=== PATIENT | female | born 2000 | race Caucasian/White ===

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

== ENCOUNTER → 2020-01-28 14:06 | Outpatient (CLI) | payer OTHER, MEDICAID, SELFPAY ==
[2020-01-30 08:24] LABS: Covid-19 Nasal PCR Sendout Lex POSITIVE
== END ==
PROVIDERS: PCP Family Medicine; Visit Provider Nurse Practitioner Family
DX: Z20.828 Contact with and (suspected) exposure to other viral communicable diseases (principal); U07.1 COVID-19
CPT/HCPCS: U0004

== ENCOUNTER 2020-03-06 13:40 | Emergency (ER) | payer OTHER, MEDICAID, SELFPAY ==
[2020-03-06 14:56] VITALS: BP 128/78; PULSE 77; RESP 16; TEMP 36.7; O2SAT 100; BMI 40.7
--- NOTE | 2020-03-06 15:01 | XR_ITS ---
PROCEDURE: XR ANKLE LT MIN 3V CLINICAL INDICATION: TURNED ANKLE Pain COMPARISON: CR XR FOOT LT MIN 3V from 03/06/2020 FINDINGS: No fracture or dislocation. No lytic or blastic change. There is normal mineralization. The joint spaces are well-preserved. No significant degenerative/arthritic changes. No erosive changes evident. Other findings:None. IMPRESSION: No acute findings. Dictated by: Rohit De Oliveira MD 03/06/2020 20:40 Rohit De Oliveira MD in [place] 03/06/2020 20:40
--- NOTE | 2020-03-06 15:01 | XR_ITS ---
PROCEDURE: XR FOOT LT MIN 3V CLINICAL INDICATION: TURNED ANKLE COMPARISON: No exams were available for comparison FINDINGS: No fracture or dislocation. No lytic or blastic change. There is normal mineralization. The joint spaces are well-preserved. No significant degenerative/arthritic changes. No erosive changes evident. Other findings:None. IMPRESSION: No acute findings. Dictated by: Rohit De Oliveira MD 03/06/2020 20:40 Rohit De Oliveira MD in [place] 03/06/2020 20:41
--- NOTE | 2020-03-06 15:19 | HMH.EDUTC ---
[facility] [place] Disposition Clinical Impression: Left ankle sprain Qualifiers: Encounter type: initial encounter Involved ligament of ankle: unspecified ligament Qualified Code(s): S93.402A - Sprain of unspecified ligament of left ankle, initial encounter Sprain of left foot Qualifiers: Encounter type: initial encounter Qualified Code(s): S93.602A - Unspecified sprain of left foot, initial encounter Disposition: Home, Self-Care Condition on Discharge: Good Instructions: Ankle Sprain, DI for Ankle Sprain, DI for Foot Sprain Additional Instructions: Rest the extremity, apply ice for 15 minutes as tolerated three or four times per day, Wear the karen wrap for compression, Elevate the extremity as tolerated while you are resting. Take ibuprofen for pain. I sent in a prescription to your pharmacy. Follow up with Dr. Parry. I put in a referral but you need to call his office and schedule an appointment. Follow up with your regular doctor. GO TO THE ER FOR ANY WORSENING SYMPTOMS Prescriptions: Ibuprofen [Ibuprofen 600mg Tablet] 600 mg PO Q6HP PRN #30 tab PRN Reason: Mild Pain Transmission Status: Received by [facility] #[id number] Referrals: Hai Dickey MD [Primary Care Provider] - Stewart Parry MD [Staff Physician] - Forms: Work/School Release Time of Disposition: 15:59 Medical Decision Making - Medical Records Medical records reviewed: No: I reviewed the patient's medical records. - Bong Inquiry Pt receiving controlled substance: No Vital Signs: 03/06/20 14:56 03/06/20 16:18 Temperature 98.1 F 98.1 F Temperature Source Oral Oral Pulse Rate 77 Pulse Rate [Radial] 77 Respiratory Rate 16 16 Blood Pressure 128/78 Blood Pressure [Right Arm] 128/78 Blood Pressure Mean [Right Arm] 94 Blood Pressure Source Automatic Cuff Blood Pressure Source [Right Arm] Automatic Cuff Blood Pressure Position Sitting Blood Pressure Position [Right Arm] Sitting 02 Sat by Pulse Oximetry 100 Oxygen Delivery Method Room Air Room Air - Radiology Data #1 Image(s): Ankle Image Reviewed: Yes I reviewed the patient's radiology image, Yes I have reviewed radiologist's interpretation Preliminary Findings: No Fracture Seen PROCEDURE: XR ANKLE LT MIN 3V CLINICAL INDICATION: TURNED ANKLE Pain COMPARISON: CR XR FOOT LT MIN 3V from 03/06/2020 FINDINGS: No fracture or dislocation. No lytic or blastic change. There is normal mineralization. The joint spaces are well-preserved. No significant degenerative/arthritic changes. No erosive changes evident. Other findings:None. IMPRESSION: No acute findings. Dictated by: Rohit De Oliveira MD 03/06/2020 20:40 Rohit De Oliveira MD in [place] 03/06/2020 20:40 #2 Image(s): Foot/Toes Image Reviewed: Yes I reviewed the patient's radiology image, Yes I have reviewed radiologist's interpretation Preliminary Findings: No Fracture Seen PROCEDURE: XR FOOT LT MIN 3V CLINICAL INDICATION: TURNED ANKLE COMPARISON: No exams were available for comparison FINDINGS: No fracture or dislocation. No lytic or blastic change. There is normal mineralization. The joint spaces are well-preserved. No significant degenerative/arthritic changes. No erosive changes evident. Other findings:None. IMPRESSION: No acute findings. Dictated by: Rohit De Oliveira MD 03/06/2020 20:40 Rohit De Oliveira MD in [place] 03/06/2020 20:41 [facility] [place] HPI - General Stated complaint: [id number] left foot pain,home accident Time Seen by Provider: 03/06/20 15:19 Mode of Arrival: Ambulatory Source of Information: Patient Limitations: No Limitations Description of Symptoms (Recalled from Triage Doc. by RN): LEFT FOOT PAIN. HEENT Symptoms (Recalled from RN notes): No Resp Symptoms (Recalled from RN notes): No Skin Symptoms (Recalled from RN notes): No MS Symptoms (Recalled from RN notes): Yes Functional Status (Recalled from RN notes): WNL - History of Present Illness Pro
[2020-03-06 16:18] VITALS: BP 128/78; PULSE 77; RESP 16; TEMP 36.7; O2SAT 100
== END 2020-03-06 16:19 | disposition home or self-care (01) ==
PROVIDERS: Emergency Provider Nurse Practitioner Family; PCP Family Medicine
DX: S93.402A Sprain of unspecified ligament of left ankle, initial encounter (principal); S93.602A Unspecified sprain of left foot, initial encounter; X50.1XXA Overexertion from prolonged static or awkward postures, initial encounter; Y92.019 Unspecified place in single-family (private) house as the place of occurrence of the external cause
CPT/HCPCS: 73610; 73630; 99201

== ENCOUNTER → 2021-01-01 11:54 | Outpatient (CLI) | payer OTHER, MEDICAID, SELFPAY ==
[2021-01-07 08:20] LABS: QuantiFERON-TB Gold Plus Negative (Negative)
== END ==
PROVIDERS: Visit Provider Family Medicine
DX: Z11.1 Encounter for screening for respiratory tuberculosis (principal)
CPT/HCPCS: 36415; 86480

== ENCOUNTER 2021-01-29 09:04 | Emergency (ER) | payer OTHER, SELFPAY ==
[2021-01-29 09:05] VITALS: BP 136/88; PULSE 90; RESP 20; TEMP 36.6; O2SAT 96; BMI 39.1
[2021-01-29 09:22] VITALS: BP 136/88; PULSE 90; RESP 20; TEMP 36.6; O2SAT 96
--- NOTE | 2021-01-29 09:25 | HMH.EDUTC ---
[facility] [place] Clinical Impression: Exposure to COVID-19 virus Disposition: Home, Self-Care Condition on Discharge: Good Instructions: DI for COVID-19 (Suspected or Confirmed ), Preventing the Spread of Coronavirus Discharge Instructions Additional Instructions: *Monitor Temp, Over the counter Motrin or Tylenol as directed/as needed Tylenol every 4 hours and Motrin every 6 hours (as long as your family doctor has told you that you can take it) for fever or pain. and straight to ER if unable to lower temp less than 101.0 after medication given Follow up IMMEDIATELY for new or worsening symptoms or no Noticeable improvement over the next 48-72 hours. 911 for difficulty breathing or swallowing You were tested for today for COVID19 your test result should be back in the next 24-48 hours, you may call to the [facility] to see if your test results are back in the next 48 hours [phone] [facility] hours are 9am-9pm You was given a handout with instructions for Self Quarantine and Self isolation for while you wait on test results and what to do if they are positive If you are positive the Health Dept will be contacting you also Make sure to take your Vitamins Vit. C Vit D and Zinc if you can take them Referrals: Hai Dickey MD [Primary Care Provider] - As needed Forms: Work/School Release Medical Decision Making - Bong Inquiry Pt receiving controlled substance: No Bong was queried for this patient: No Vital Signs: 01/29/21 09:05 01/29/21 09:22 Temperature 97.9 F 97.9 F Temperature Source Oral Pulse Rate 90 Pulse Rate [Right Brachial] 90 Respiratory Rate 20 20 Blood Pressure 136/88 Blood Pressure [Right Arm] 136/88 Blood Pressure Mean [Right Arm] 104 Blood Pressure Source [Right Arm] Automatic Cuff Blood Pressure Position [Right Arm] Sitting 02 Sat by Pulse Oximetry 96 Oxygen Delivery Method Room Air [facility] [place] HPI - General Stated complaint: covid test Time Seen by Provider: 01/29/21 09:25 Mode of Arrival: Ambulatory Source of Information: Patient Limitations: No Limitations Description of Symptoms (Recalled from Triage Doc. by RN): PATIENT C/O SINUS DRAINAGE, CONGESTION AND NAUSEA. SCHOOL IS REQUESTING COVID TEST HEENT Symptoms (Recalled from RN notes): Yes Resp Symptoms (Recalled from RN notes): No Skin Symptoms (Recalled from RN notes): No MS Symptoms (Recalled from RN notes): No Functional Status (Recalled from RN notes): WNL - History of Present Illness Provider Complaint: Patient states that she has been having stuffy and runny nose State that she was possibly around a COVID + patient during clinicals and they wanted her to get tested She states feels like allergies Denies any other symptoms - Related Data Home Medications Medication Instructions Recorded Confirmed duloxetine 60 mg capsule,delayed 60 mg PO DAILY 01/06/21 release Previous Rx's Medication Instructions Recorded norgestimate 0.25 mg-ethinyl 1 tab PO DAILY #28 tab 01/06/21 estradiol 35 mcg tablet Allergies Allergy/AdvReac Type Severity Reaction Status Date / Time No Known Allergies Allergy Verified 01/06/21 15:04 - Worker's Comp Is this a Worker's Comp case?: No [facility] History - Hepatitis A Screen Drug use history?: No High risk sexual behaviors?: No History of sexually transmitted infection?: No Currently employed?: No Childcare worker?: No Do you have indoor plumbing?: Yes Do you have electricity?: Yes Attestation statement:: This patient has been screened for Hepatitis A risk factors. 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
== END 2021-01-29 09:27 | disposition home or self-care (01) ==
PROVIDERS: Emergency Provider Nurse Practitioner; PCP Family Medicine
DX: Z20.822 Contact with and (suspected) exposure to COVID-19 (principal)
CPT/HCPCS: 99202; G0463; U0003

== ENCOUNTER 2021-03-31 11:05 | Emergency (ER) | payer OTHER, MEDICAID, SELFPAY ==
[2021-03-31 11:06] VITALS: BP 137/92; PULSE 92; RESP 18; TEMP 37.1; O2SAT 98; BMI 42.3
--- NOTE | 2021-03-31 12:43 | HMH.EDUTC ---
[facility] [place] Disposition Clinical Impression: Bronchitis Sinusitis Qualifiers: Sinusitis location: unspecified location Chronicity: unspecified Qualified Code(s): J32.9 - Chronic sinusitis, unspecified Disposition: Home, Self-Care Condition on Discharge: Good Instructions: Sinusitis, DI for Sinusitis, DI for Cough -- Adult Additional Instructions: *Monitor Temp, Over the counter Motrin or Tylenol as directed/as needed Tylenol every 4 hours and Motrin every 6 hours (as long as your family doctor has told you that you can take it) for fever or pain. and straight to ER if unable to lower temp less than 101.0 after medication given *Warm salt water gargles may help to soothe the throat *Throat Lozenges *Warm fluids like tea with honey may help to soothe the throat *Sleep elevated *Humidifier/Vaporizer *Flonase 2 sprays in each nostril daily but be aware that it may take 2-3 days before you notice improvement Follow up IMMEDIATELY for new or worsening symptoms or no Noticeable improvement over the next 48-72 hours. 911 for difficulty breathing or swallowing You were tested for today for COVID19 your test result should be back in the next 24-48 hours, you may check your results on the [facility] My Health Portal if you have trouble logging on you may call You was given a handout with instructions for Self Quarantine and Self isolation for while you wait on test results and what to do if they are positive If you are positive the Health Dept will be contacting you also Make sure to take your Vitamins Vit. C Vit D and Zinc if you can take them Prescriptions: methylPREDNISolone [Medrol 4mg tab] 4 mg PO DIRECTED #21 tab Transmission Status: Pending to [facility] # guaiFENesin [Mucinex 600mg tablet] 1 - 2 tab PO BID PRN #20 tab PRN Reason: Congestion Transmission Status: Pending to [facility] # Azithromycin [Z-Aj 250mg Tab] 250 mg PO DIRECTED #6 tab Transmission Status: Pending to [facility] # Referrals: Hai Dickey MD [Primary Care Provider] - As needed Time of Disposition: 13:38 Medical Decision Making - Bong Inquiry Pt receiving controlled substance: No Bong was queried for this patient: No Vital Signs: 03/31/21 11:06 Temperature 98.8 F Temperature Source Oral Pulse Rate [Left Radial] 92 H Respiratory Rate 18 Blood Pressure [Right Arm] 137/92 H Blood Pressure Mean [Right Arm] 107 Blood Pressure Source [Right Arm] Automatic Cuff Blood Pressure Position [Right Arm] Sitting 02 Sat by Pulse Oximetry 98 Oxygen Delivery Method Room Air - Lab Data Lab Results 03/31/21 12:46: [facility] Clinic Negative Orders (Tests/Meds): ORDERS Category Date Time Status Covid-19 Nasal PCR ([facility]) Routine Lab 03/31/21 12:10 Received [facility] [place] HPI - General Stated complaint: cough, soa, congestion Time Seen by Provider: 03/31/21 12:43 Mode of Arrival: Ambulatory Source of Information: Patient Description of Symptoms (Recalled from Triage Doc. by RN): coughing and soa since Tuesday HEENT Symptoms (Recalled from RN notes): No Resp Symptoms (Recalled from RN notes): Yes (cough, soa) Skin Symptoms (Recalled from RN notes): No MS Symptoms (Recalled from RN notes): No Functional Status (Recalled from RN notes): na - History of Present Illness Provider Complaint: Patient states that she has been having sinus congestion and pressure for about a week and feels like it is trying to move into her chest States that she isnt coughing anything up yet but feels like it is draining in the back of her throat and making her cough and at times feels SOA - Related Data Home Medications Medication Instructions Recorded Confirmed duloxetine 60 mg capsule,delayed 60 mg PO DAILY 01/06/21 release Previous Rx's Medication Instructions Recorded norgestimate 0.25 mg-ethinyl 1 tab PO DAILY #28 tab 01/06/21 estradiol 35 mcg tablet Azithromycin [Z-Aj 250mg Tab]
[2021-03-31 13:23] LABS: UTC Pregnancy Test, Urine Negative (Negative)
[2021-03-31 14:01] VITALS: BP 137/92; PULSE 92; RESP 18; TEMP 37.1; O2SAT 98
== END 2021-03-31 14:03 | disposition home or self-care (01) ==
PROVIDERS: Emergency Provider Nurse Practitioner; PCP Family Medicine
DX: J20.9 Acute bronchitis, unspecified (principal); J32.9 Chronic sinusitis, unspecified; Z20.822 Contact with and (suspected) exposure to COVID-19
CPT/HCPCS: 81025; 99203; C9803; G0463; U0003; U0005

== ENCOUNTER 2021-04-14 11:50 | Emergency (ER) | payer MEDICAID, SELFPAY ==
[2021-04-14 12:13] VITALS: BP 146/97; PULSE 87; RESP 19; TEMP 37; O2SAT 98; BMI 40.6
[2021-04-14 12:39] LABS: UTC Pregnancy Test, Urine Negative (Negative)
--- NOTE | 2021-04-14 12:44 | HMH.EDUTC ---
[facility] [place] Disposition Clinical Impression: Negative test Disposition: Home, Self-Care Condition on Discharge: Good Additional Instructions: Follow up with [facility] if you do not start your menstrual period Return if needed Straight to ER if any life threatening symptoms Follow up with your [facility] Doctor if needed Referrals: Hai Dickey MD [Primary Care Provider] - As needed Time of Disposition: 13:38 Medical Decision Making - Bong Inquiry Pt receiving controlled substance: No Bong was queried for this patient: No Vital Signs: 04/14/21 12:13 Temperature 98.6 F Temperature Source Oral Pulse Rate [Left] 87 Respiratory Rate 19 Blood Pressure [Right Arm] 146/97 H Blood Pressure Mean [Right Arm] 113 02 Sat by Pulse Oximetry 98 - Lab Data Lab Results 04/14/21 12:11: Tst Clinic Negative 04/14/21 12:35: Serum HCG, Qual Negative [facility] [place] HPI - General Stated complaint: test Time Seen by Provider: 04/14/21 12:44 Mode of Arrival: Ambulatory Source of Information: Patient Limitations: No Limitations Description of Symptoms (Recalled from Triage Doc. by RN): pt requests a serum test. HEENT Symptoms (Recalled from RN notes): No Resp Symptoms (Recalled from RN notes): No Skin Symptoms (Recalled from RN notes): No MS Symptoms (Recalled from RN notes): No Functional Status (Recalled from RN notes): wnl - History of Present Illness Provider Complaint: Patient states that she took a couple home tests and they had a faint line at home so she came in requesting serum test States that she is on birthcontrol and wanted to see what the blood test showed before making appointment with OBGYN - Related Data Home Medications Medication Instructions Recorded Confirmed duloxetine 60 mg capsule,delayed 60 mg PO DAILY 01/06/21 release Previous Rx's Medication Instructions Recorded norgestimate 0.25 mg-ethinyl 1 tab PO DAILY #28 tab 01/06/21 estradiol 35 mcg tablet Azithromycin [Z-Aj 250mg Tab] 250 mg PO DIRECTED #6 tab 03/31/21 guaiFENesin [Mucinex 600mg tablet] 1 - 2 tab PO BID PRN #20 tab 03/31/21 methylPREDNISolone [Medrol 4mg 4 mg PO DIRECTED #21 tab 03/31/21 tab] Allergies Allergy/AdvReac Type Severity Reaction Status Date / Time No Known Allergies Allergy Verified 01/06/21 15:04 - Worker's Comp Is this a Worker's Comp case?: No [facility] History - Hepatitis A Screen Drug use history?: No High risk sexual behaviors?: No History of sexually transmitted infection?: No Currently employed?: No Childcare worker?: No Do you have indoor plumbing?: Yes Do you have electricity?: Yes Attestation statement:: This patient has been screened for Hepatitis A risk factors. 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 [employer] history ROS Obtained: Yes All systems reviewed & no additional complaints, Yes Systems reviewed as appropriate & no additional complaints - Constitutional Constitutional: Reports system reviewed and no additional complaints, except as docu, Denies body ache, Denies chills, Denies fever(s) - ENT Ears, Nose, Mouth, and Throat: Reports system reviewed and no additional complaints, except as docu - Cardiovascular Cardiovascular: Reports system reviewed and no additional complaints, except as docu - Respiratory Respiratory: Reports system reviewed and no additional complaints, except as docu - Gastrointestinal Gastrointestingal: Reports: system reviewed and no additional complaints, except as docu - Genitourinary Female Genitourinary: Reports system reviewed and no addition
[2021-04-14 13:12] LABS: HCG Qualitative, Serum Negative (Negative)
[2021-04-14 13:52] VITALS: BP 146/97; PULSE 87; RESP 19; TEMP 37
== END 2021-04-14 13:54 | disposition home or self-care (01) ==
PROVIDERS: Emergency Provider Nurse Practitioner; PCP Family Medicine
DX: Z32.01 Encounter for pregnancy test, result positive (principal)
CPT/HCPCS: 81025; 84703; 99202; G0463

== ENCOUNTER 2021-08-05 22:15 | Emergency (ER) | payer OTHER, MEDICAID, SELFPAY ==
--- NOTE | 2021-08-05 22:15 | ECG_ITS ---
APPROVED REPORT Exam: Resting ECG HR:56 bpm ECG Measurements Heart Rate 56 AXES MI 168 P 55 QRSd 96 QRS 34 QT 389 T 45 QTc 381 Conclusion SINUS BRADYCARDIA BORDERLINE ECG UNCONFIRMED REPORT Electronically signed by : Fadi Lloyd MD 08/06/2021 17:28:03
[2021-08-05 22:17] VITALS: BP 123/68; PULSE 66; RESP 18; TEMP 36.8; O2SAT 100; BMI 37.1
--- NOTE | 2021-08-05 22:26 | XR_ITS ---
PROCEDURE INFORMATION: Exam: XR Chest Exam date and time: 08/05/2021 10:26 PM Age: 20 years old Clinical indication: Sternal or substernal pain; Patient HX: PT states midsternal chest pain that started around 2200 tonight. Patient also around 4 weeks TECHNIQUE: Imaging protocol: XR of the chest. Views: 2 views. COMPARISON: No relevant prior studies available. FINDINGS: Lungs: No acute airspace consolidation. No appreciable pulmonary edema. Pleural spaces: No pleural effusion. No pneumothorax. Heart/Mediastinum: Cardiomediastinal silouhette is within normal limits. Bones/joints: No acute osseous abnormality. Soft tissues: Unremarkable. IMPRESSION: No evidence of acute cardiopulmonary disease.
[2021-08-05 22:50] LABS: Basophils # 0.2 K/mm3 (0-0.2); Basophils % 2.3 % (0.1-2.0); Eosinophils # 0.1 K/mm3 (0.0-0.4); Eosinophils % 1.5 % (0.1-12.0); Hematocrit 39.4 % (37.0-47.0); Hemoglobin 13.5 g/dL (12.2-16.2); Lymphocytes # 3.5 K/mm3 (0.7-4.5); Lymphocytes % 37.1 % (10-50); Mean Corpuscular HGB Conc 34.2 g/dL (31.8-35.4); Mean Corpuscular Hemoglobin 30.8 pg (27.0-31.2); Mean Platelet Volume 8.3 fl (7.4-10.4); Monocytes # 0.5 K/mm3 (0.1-1.0); Monocytes % 5.8 % (1.7-9.3); Neutrophils % 53.4 % (37.0-80.0); Platelet Count 340 K/mm3 (142-424); Red Blood Count 4.38 M/mm3 (4.20-5.40); Red Cell Distribution Width 12.1 % (11.5-17.5); White Blood Count 9.4 K/mm3 (4.5-13.0)
[2021-08-05 22:55] LABS: Alanine Aminotransferase 25 U/L (12-78); Albumin Level 4.2 g/dl (3.5-5.0); Alkaline Phosphatase 48 U/L (38-126); Anion Gap 12.5 mEq/L (5-15); Aspartate Amino Transferase 26 U/L (14-36); Bilirubin,Direct 0.2 mg/dl (0.0-0.4); Bilirubin,Indirect 0.7 mg/dL (0.0-0.9); Bilirubin,Total 0.9 mg/dl (0.2-1.3); Bilirubin,Unconjugated 0.7 mg/dL (0.0-1.1); Blood Urea Nitrogen 10 mg/dl (7-17); Calcium 8.7 mg/dl (8.4-10.2); Carbon Dioxide 24 mmol/L (22.0-30.0); Chloride 105 mmol/L (98-107); Creatinine Clearance Estimated 246 mL/min (50-200); Estimated Glomerular Filt Rate 127 ml/min (>60); GFR (African American) 154 ML/MIN (>60); Glucose 109 mg/dl (74-100); Lipase 125 U/L (23-300); Potassium 3.5 mmoL/L (3.5-5.1); Sodium 138 mmol/L (136-145); Total Protein,Serum 6.5 g/dl (6.3-8.2)
[2021-08-05 23:27] LABS: Troponin I < 0.01 ng/ml (0.00-0.034)
[2021-08-05 23:53] LABS: Erythrocyte Sedimentation Rate 15 mm/hr (0-20)
--- NOTE | 2021-08-06 00:04 | HMH.EDCP ---
ED Disposition Clinical Impression: Atypical chest pain Qualifiers: Weeks of gestation: less than 8 weeks Qualified Code(s): Z3A.01 - Less than 8 weeks gestation of Disposition: Home, Self-Care Condition on Discharge: Good Instructions: DI for Atypical Chest Pain Additional Instructions: call pcp and ob for follow up Referrals: Provider,Referral, [Primary Care Provider] - - Critical Care Critical Care Time: No Attestation: On 08/05/21, the high probability of a clinically significant, sudden or life threatening deterioration of the following system(s) required my full and direct attention, intervention and personal management. The time I documented below is in addition to time spent performing reported procedures but includes the following listed in this critical care notation. Medical Decision Making - Medical Records Medical records reviewed: Yes: I reviewed the patient's medical records. - Bong Inquiry Pt receiving controlled substance: No Vital Signs: 08/05/21 22:17 Temperature 98.2 F Temperature Source Oral Pulse Rate [Right Radial] 66 Respiratory Rate 18 Blood Pressure [Right Arm] 123/68 Blood Pressure Mean [Right Arm] 86 Blood Pressure Source [Right Arm] Automatic Cuff Blood Pressure Position [Right Arm] Sitting 02 Sat by Pulse Oximetry 100 Oxygen Delivery Method Room Air - Lab Data Lab results reviewed: Yes: I reviewed the patient's lab results. Lab Results 08/05/21 22:34: WBC 9.4, RBC 4.38, Hgb 13.5, Hct 39.4, MCV 90.0, MCH 30.8, MCHC 34.2, RDW 12.1, Plt Count 340, MPV 8.3, Neut % (Auto) 53.4, Lymph % (Auto) 37.1, Nolan % (Auto) 5.8, Eos % (Auto) 1.5, Baso % (Auto) 2.3 H, Neut # (Auto) 5.0, Lymph # (Auto) 3.5, Nolan # (Auto) 0.5, Eos # (Auto) 0.1, Baso # (Auto) 0.2, ESR 15 08/05/21 22:34: Sodium 138, Potassium 3.5, Chloride 105, Carbon Dioxide 24, Anion Gap 12.5, BUN 10, Creatinine 0.60, Estimated Creat Clear 246, Estimated GFR 127, Est GFR ( Amer) 154, Glucose 109 H, Calcium 8.7, Total Bilirubin 0.9, Direct Bilirubin 0.2, Conjugated Bilirubin 0.0, Indirect Bilirubin 0.7, Unconjugated Bilirubin 0.7, AST 26, ALT 25, Alkaline Phosphatase 48, Troponin I < 0.01, C-Reactive Protein 2.0, Total Protein 6.5, Albumin 4.2, Lipase 125 Result diagrams: 08/05/21 22:34 08/05/21 22:34 Orders (Tests/Meds): ED MEDICATIONS Generic Name Dose Route Start Last Admin Trade Name Freq PRN Reason Stop Dose Admin Sodium Chloride 1,000 mls @ 999 mls/hr 08/05/21 22:30 08/05/21 22:50 Sod Chlor 0.9% 1000ml Bag IV 08/05/21 23:30 999 mls/hr .Q1H1M GONZALEZ Administration Sodium Chloride 8 ml 08/05/21 22:41 Sodium Chloride 0.9% 10ml Vial IV 09/04/21 22:40 NEEDED PRN dilute pepcid Discontinued Medications Generic Name Dose Route Start Last Admin Trade Name Freq PRN Reason Stop Dose Admin Famotidine 20 mg 08/05/21 22:41 08/05/21 22:50 Famotidine 20mg/2ml Vial IV 08/05/21 22:42 20 mg ONCE ONE Administration Metoclopramide HCl 10 mg 08/05/21 22:41 08/05/21 22:50 Metoclopramide Hcl 10mg/2ml Vial IVP 08/05/21 22:42 10 mg ONCE ONE Administration ORDERS Category Date Time Status Troponin I Q3H Lab 08/06/21 01:30 Ordered Troponin I Q3H Lab 08/06/21 04:30 Ordered - Radiology Data #1 Image(s): Chest Image Reviewed: Yes I have reviewed radiologist's interpretation Preliminary Findings: Normal/NAD - ECG Data Tracing #1 Normal Sinus Rhythm: Yes Ischemic changes: non-specific ST-T wave changes Medical Decision Narrative: atypical chest pain with stable exam and labs Chest Pain HPI - General Chief Complaint: Chest Pain Stated Complaint: Chest Pain Time Seen by Provider: 08/05/21 23:00 Mode of Arrival: Ambulatory Source of Information: Patient, Spouse, Medical Record Limitations: No Limitations Description of Symptoms (Recalled from ER Triage Doc. by RN): Pt reports mid-sternal chest pain that
[2021-08-06 00:25] VITALS: BP 106/55; PULSE 71; RESP 16; TEMP 36.6; O2SAT 100
== END 2021-08-06 00:27 | disposition home or self-care (01) ==
PROVIDERS: Emergency Provider Emergency Medicine
DX: R07.89 Other chest pain (principal); R11.0 Nausea; Z3A.01 Less than 8 weeks gestation of pregnancy
CPT/HCPCS: 71046; 80048; 80076; 83690; 84484; 85025; 85651; 86140; 93005; 96365; 96375

== ENCOUNTER → 2021-08-31 16:15 | Outpatient (CLI) | payer OTHER, MEDICAID, SELFPAY ==
[2021-08-31 17:02] LABS: Basophils # 0.1 K/mm3 (0-0.2); Basophils % 1.2 % (0.1-2.0); Eosinophils % 0.4 % (0.1-12.0); Hematocrit 37.6 % (37.0-47.0); Hemoglobin 12.9 g/dL (12.2-16.2); Lymphocytes # 2.4 K/mm3 (0.7-4.5); Lymphocytes % 20.6 % (10-50); Mean Corpuscular HGB Conc 34.4 g/dL (31.8-35.4); Mean Corpuscular Hemoglobin 30.9 pg (27.0-31.2); Mean Corpuscular Volume 89.9 fl (81-99); Mean Platelet Volume 9.1 fl (7.4-10.4); Monocytes # 0.6 K/mm3 (0.1-1.0); Monocytes % 5.1 % (1.7-9.3); Neutrophils # 8.5 K/mm3 (1.8-7.8); Neutrophils % 72.8 % (37.0-80.0); Platelet Count 295 K/mm3 (142-424); Red Blood Count 4.18 M/mm3 (4.20-5.40); White Blood Count 11.6 K/mm3 (4.5-13.0)
[2021-08-31 18:32] LABS: Vitamin B12 354 pg/mL (239-931)
[2021-09-02 07:23] LABS: HIV Screen 4th Generation wRfx Non Reactive (Non Reactive)
[2021-09-02 08:38] LABS: HSV 1 IgG, Type Spec <0.91 index (0.00-0.90); HSV 2 IgG, Type Spec <0.91 index (0.00-0.90); Hepatitis B Surface Antigen Negative (Negative); Hepatitis C Antibody 0.2 s/co ratio (0.0-0.9)
[2021-09-02 12:12] LABS: Rapid Plasma Reagin Ab Titer Non Reactive (NonRea<1:1)
[2021-09-02 22:08] LABS: Neisseria gonorrhoeae, NAA Negative (Negative)
[2021-09-10 16:39] LABS: 1,25 Dihydroxy Vitamin D 59 pg/mL (.); 1,25-Dihydroxy, Vitamin D-2 <10 pg/mL (.); 1,25-Dihydroxy, Vitamin D-3 59 pg/mL (.)
== END ==
PROVIDERS: PCP Family Medicine; Visit Provider Nurse Practitioner Obstetrics & Gynecology
DX: Z34.90 Encounter for supervision of normal pregnancy, unspecified, unspecified trimester (principal); Z3A.01 Less than 8 weeks gestation of pregnancy; Z90.3 Acquired absence of stomach [part of]
CPT/HCPCS: 36415; 82607; 82652; 85025; 86592; 86695; 86703; 86762; 86790; 86850; 87340; 87380; 87491; 87591; G0432

== ENCOUNTER → 2021-09-09 12:55 | Outpatient (CLI) | payer OTHER, MEDICAID, SELFPAY ==
--- NOTE | 2021-09-09 12:55 | US_ITS ---
FINAL REPORT CLINICAL HISTORY: for dates FINDINGS: Sonographic images of the pelvis were obtained. A single, living intrauterine is noted. A yolk sac is present and measures 0.48 cm. [place] to rump length measures 2.3 cm which corresponds to 9 weeks 0 days gestation. Heartbeat is identified and measures 174 beats per minute. The right ovary is within normal limits. The left ovary is within normal limits. IMPRESSION: Single, living, intrauterine gestation with 9 weeks 0 days gestational age. Reviewed, Interpreted and Dictated by Franki Toure III, MD Transcribed by Cassie Vieira Authenticated by Franki Toure III, MD on 09/09/2021 04:54:22 PM [facility]
== END ==
PROVIDERS: PCP Family Medicine; Visit Provider Nurse Practitioner Obstetrics & Gynecology
DX: Z34.90 Encounter for supervision of normal pregnancy, unspecified, unspecified trimester (principal)
CPT/HCPCS: 76801

== ENCOUNTER → 2021-09-29 09:21 | Outpatient (CLI) | payer OTHER, MEDICAID, SELFPAY | PROVIDERS: Visit Provider Nurse Practitioner Obstetrics & Gynecology | DX: Z31.430 Encounter of female for testing for genetic disease carrier status for procreative management (principal); Z36.0 Encounter for antenatal screening for chromosomal anomalies; O28.3 Abnormal ultrasonic finding on antenatal screening of mother | CPT/HCPCS: 36415 ==

== ENCOUNTER → 2021-11-20 12:49 | Outpatient (CLI) | payer OTHER, MEDICAID, SELFPAY ==
--- NOTE | 2021-11-20 12:49 | US_ITS ---
FINAL REPORT CLINICAL HISTORY: 20 weeks gestation FINDINGS: There is a single live intrauterine gestation. Presentation is breech. The cervix is closed and measures 3.76 cm. Placenta is anterior, grade 1. movement is noted. Heart rate is measured at 139 beats per minute. Three-vessel cord with satisfactory umbilical cord insertion. Four-chamber heart is noted. brain and ventricles are unremarkable. Chest and diaphragm are unremarkable. ABDOMEN: Both kidneys are unremarkable. Stomach is unremarkable. SPINE: No anomalies identified. AMNIOTIC FLUID: Appropriate amount. MEASUREMENTS: ULTRASOUND AGE: 19 weeks 3 days. GESTATION AGE: 19 weeks 1 days. ESTIMATED WEIGHT: 294 g GROWTH PERCENTILE: 64% BPD: 4.4 cm corresponding with 19 weeks 3 days. OFD: 6 cm corresponding with 20 weeks 3 days. HC: 16.6 cm corresponding with 19 weeks 2 days. AC: 14.8 cm corresponding with 20 weeks 1 days. FL: 2.9 cm corresponding with 18 weeks 6 days. CEREBELLUM: 2 cm corresponding with 20 weeks 1 days. HUMERUS: 3.1 cm corresponding with 20 weeks 2 days. HC/AC: 1.12 CI: 74% FL/BPD: 65% FL/AC: 19% IMPRESSION: Single living IUP with an ultrasound age of 19 weeks 3 days. No gross anomalies noted. Reviewed, Interpreted and Dictated by Franki Toure III, MD Transcribed by Cassie Vieira Authenticated and [facility]
== END ==
PROVIDERS: PCP Family Medicine; Visit Provider Nurse Practitioner Obstetrics & Gynecology
DX: Z34.90 Encounter for supervision of normal pregnancy, unspecified, unspecified trimester (principal); Z3A.20 20 weeks gestation of pregnancy
CPT/HCPCS: 76811

== ENCOUNTER 2021-12-02 12:04 | Outpatient (CLI) | payer OTHER, MEDICAID, SELFPAY ==
[2021-12-02 12:11] VITALS: BMI 43.6
[2021-12-02 12:19] LABS: Microscopic, Urine URINE MICROSCOPIC (MICROSCOPIC)
[2021-12-02 12:24] LABS: Appearance,Urine SL CLOUDY (Clear); Bilirubin,Urine Negative (Negative); Blood, Urine Negative (Negative); Color,Urine YELLOW (Yellow); Glucose,Urine (UA) Negative (Negative); Ketones,Urine Negative (Negative); Leukocyte Esterase,Urine 1+ (Negative); Nitrate,Urine Negative (Negative); PH,Urine 6.5 (5.0-8.5); Protein,Urine Negative (Negative); Urobilinogen,Urine 0.2 EU/dl (0.2)
[2021-12-02 12:34] LABS: Barbiturates Screen,Urine Negative ng/ml (<200); Benzodiazepines Screen,Urine Negative ng/ml (<200)
[2021-12-02 12:35] LABS: Amphetamine/Metha Screen,Urine Negative ng/ml (<1000)
[2021-12-02 12:36] LABS: Cannabinoid Screen,Urine Negative ng/ml (<50); Cocaine Screen,Urine Negative ng/ml (<300)
[2021-12-02 12:37] LABS: Methadone Screen,Urine Negative ng/ml (<300)
[2021-12-02 12:38] LABS: Opiate Screen,Urine Negative ng/ml (<300); Phencyclidine Screen,Urine Negative ng/ml (<25)
[2021-12-02 12:43] VITALS: BP 130/84; PULSE 97; RESP 19; TEMP 36.7; O2SAT 96; BMI 43.7
[2021-12-02 12:50] VITALS: BP 136/70
[2021-12-02 12:50] LABS: Bacteria,Urine 4+ /lpf; RBC,Urine Occasional #/hpf (0-3)
[2021-12-02 13:00] VITALS: BP 120/76
[2021-12-02 13:16] VITALS: BP 112/62
== END 2021-12-02 14:17 | disposition home or self-care (01) ==
LOC: OBOUT 12:06 → OB 12:07
PROVIDERS: PCP Family Medicine; Visit Provider Obstetrics & Gynecology
DX: O13.2 Gestational [pregnancy-induced] hypertension without significant proteinuria, second trimester (principal); Z3A.21 21 weeks gestation of pregnancy
CPT/HCPCS: 59025; 80305; 81001; 87086; 87088; 87186; G0463

== ENCOUNTER → 2021-12-30 13:11 | Outpatient (CLI) | payer OTHER, SELFPAY ==
[2022-01-02 10:14] LABS: QuantiFERON-TB Gold Plus Negative (Negative)
== END ==
PROVIDERS: PCP Family Medicine; Visit Provider Family Medicine
DX: Z11.1 Encounter for screening for respiratory tuberculosis (principal)
CPT/HCPCS: 36415; 86480

== ENCOUNTER 2022-01-18 12:00 | Outpatient (CLI) | payer OTHER, MEDICAID, SELFPAY ==
[2022-01-18 12:09] VITALS: BMI 48.2
[2022-01-18 12:25] VITALS: BP 129/73; PULSE 108; RESP 18; TEMP 36.7; O2SAT 100; BMI 48.2
[2022-01-18 12:53] LABS: Microscopic, Urine URINE MICROSCOPIC (MICROSCOPIC)
[2022-01-18 13:02] LABS: Appearance,Urine SL CLOUDY (Clear); Bilirubin,Urine Negative (Negative); Blood, Urine Negative (Negative); Color,Urine YELLOW (Yellow); Glucose,Urine (UA) Negative (Negative); Ketones,Urine Negative (Negative); Leukocyte Esterase,Urine 2+ (Negative); Nitrate,Urine Negative (Negative); Protein,Urine Negative (Negative); Urobilinogen,Urine 0.2 EU/dl (0.2)
[2022-01-18 13:32] LABS: Bacteria,Urine 4+ /lpf
[2022-01-18 14:16] LABS: Amphetamine/Metha Screen,Urine Negative ng/ml (<1000); Barbiturates Screen,Urine Negative ng/ml (<200)
[2022-01-18 14:17] LABS: Benzodiazepines Screen,Urine Negative ng/ml (<200)
[2022-01-18 14:18] LABS: Cannabinoid Screen,Urine Negative ng/ml (<50)
[2022-01-18 14:19] LABS: Cocaine Screen,Urine Negative ng/ml (<300)
[2022-01-18 14:20] LABS: Methadone Screen,Urine Negative ng/ml (<300); Opiate Screen,Urine Negative ng/ml (<300)
[2022-01-18 14:21] LABS: Phencyclidine Screen,Urine Negative ng/ml (<25)
== END 2022-01-18 14:49 | disposition home or self-care (01) ==
LOC: OB 13:13 → OBOUT 14:37
PROVIDERS: PCP Family Medicine; Visit Provider Nurse Practitioner Obstetrics & Gynecology
DX: O26.892 Other specified pregnancy related conditions, second trimester (principal); Z3A.27 27 weeks gestation of pregnancy; R10.9 Unspecified abdominal pain
CPT/HCPCS: 59025; 80305; 81001; 87086; G0463

== ENCOUNTER → 2022-01-20 09:16 | Outpatient (CLI) | payer OTHER, MEDICAID, SELFPAY ==
[2022-01-20 09:46] LABS: Glucose,Fasting 93 mg/dl (74-100)
[2022-01-20 11:00] LABS: Glucose 1 Hour 111 mg/dL (74-100)
== END ==
PROVIDERS: PCP Family Medicine; Visit Provider Nurse Practitioner Obstetrics & Gynecology
DX: Z34.90 Encounter for supervision of normal pregnancy, unspecified, unspecified trimester (principal); Z3A.23 23 weeks gestation of pregnancy
CPT/HCPCS: 36415; 82951

== ENCOUNTER 2022-02-22 14:00 | Outpatient (CLI) | payer OTHER, MEDICAID, SELFPAY ==
[2022-02-22 14:18] VITALS: BMI 52.0
[2022-02-22 14:39] VITALS: BP 128/77; PULSE 89; RESP 18; TEMP 37; O2SAT 100; BMI 52.0
[2022-02-22 15:07] LABS: Microscopic, Urine URINE MICROSCOPIC (MICROSCOPIC)
[2022-02-22 15:10] LABS: Basophils # 0.1 K/mm3 (0-0.2); Basophils % 0.4 % (0.1-2.0); Eosinophils # 0.1 K/mm3 (0.0-0.4); Eosinophils % 0.4 % (0.1-12.0); Hematocrit 35.7 % (37.0-47.0); Hemoglobin 12.1 g/dL (12.2-16.2); Lymphocytes % 16.9 % (10-50); Mean Corpuscular HGB Conc 33.8 g/dL (31.8-35.4); Mean Corpuscular Hemoglobin 30.2 pg (27.0-31.2); Mean Corpuscular Volume 89.3 fl (81-99); Mean Platelet Volume 8.6 fl (7.4-10.4); Monocytes # 0.7 K/mm3 (0.1-1.0); Monocytes % 5.3 % (1.7-9.3); Neutrophils # 9.3 K/mm3 (1.8-7.8); Platelet Count 367 K/mm3 (142-424); White Blood Count 12.1 K/mm3 (4.8-10.8)
[2022-02-22 15:20] LABS: Appearance,Urine CLOUDY (Clear); Bilirubin,Urine Negative (Negative); Blood, Urine TRACE-I (Negative); Color,Urine YELLOW (Yellow); Glucose,Urine (UA) Negative (Negative); Ketones,Urine TRACE (Negative); Leukocyte Esterase,Urine 1+ (Negative); Nitrate,Urine Negative (Negative); PH,Urine 5.5 (5.0-8.5); Protein,Urine 1+ (Negative); Specific Gravity, Urine >= 1.030 (1.005-1.030); Urobilinogen,Urine 0.2 EU/dl (0.2)
[2022-02-22 15:29] LABS: Amphetamine/Metha Screen,Urine Negative ng/ml (<1000)
[2022-02-22 15:30] LABS: Barbiturates Screen,Urine Negative ng/ml (<200); Benzodiazepines Screen,Urine Negative ng/ml (<200)
[2022-02-22 15:32] LABS: Cocaine Screen,Urine Negative ng/ml (<300); Methadone Screen,Urine Negative ng/ml (<300)
[2022-02-22 15:34] LABS: Phencyclidine Screen,Urine Negative ng/ml (<25)
[2022-02-22 15:35] LABS: D-Dimer 0.75 ug/mL (0.0-0.5)
[2022-02-22 15:38] LABS: Fibrinogen 472 mg/dL (229.9-363.5); INR 0.88 (0.9-1.1); Prothrombin Time 9.6 seconds (10.1-12.5)
[2022-02-22 15:41] LABS: Activated Partial Thrombo Time 19.7 seconds (22.8-30.6)
[2022-02-22 15:43] LABS: Cannabinoid Screen,Urine Negative ng/ml (<50)
[2022-02-22 15:52] LABS: Chloride 104 mmol/L (98-107); Sodium 134 mmol/L (136-145)
[2022-02-22 15:59] LABS: RBC,Urine Occasional #/hpf (0-3); Squamous Epithelial Cell,Urine 20-50 #/hpf (0-5)
--- NOTE | 2022-02-22 15:59 | P.PN_ITS ---
Subjective *Date: 02/22/22 *Time: 15:59 Interval history: We had sent her up to labor and delivery because her blood pressure was elevated here in the office. She had a mild headache. Medical Exam Vital signs and Labs for Last 24 Hours: Temp Pulse Resp BP Pulse Ox 98.6 F 89 18 128/77 100 02/22/22 14:39 02/22/22 14:39 02/22/22 14:39 02/22/22 14:39 02/22/22 14:39 Laboratory Results - last 24 hr 02/22/22 14:21: WBC 12.1 H, RBC 4.00 L, Hgb 12.1 L, Hct 35.7 L, MCV 89.3, MCH 30.2, MCHC 33.8, RDW 13.0, Plt Count 367, MPV 8.6, Neut % (Auto) 77.0, Lymph % (Auto) 16.9, [place] % (Auto) 5.3, Eos % (Auto) 0.4, Baso % (Auto) 0.4, Neut # (Auto) 9.3 H, Lymph # (Auto) 2.0, [place] # (Auto) 0.7, Eos # (Auto) 0.1, Baso # (Auto) 0.1 02/22/22 14:21: PT 9.6 L, INR 0.88 L, APTT 19.7 L, Fibrinogen 472 H 02/22/22 14:21: D-Dimer 0.75 H, Sodium 134 L, Potassium 4.0, Chloride 104 02/22/22 14:21: Urine Color Yellow, Urine Appearance Cloudy, Urine pH 5.5, Ur Specific [place] >= 1.030, Urine Protein 1+, Urine Glucose (UA) Negative, Urine Ketones Trace, Urine Blood Trace-i, Urine Nitrate Negative, Urine Bilirubin Negative, Urine Urobilinogen 0.2, Ur Leukocyte Esterase 1+ A 02/22/22 14:21: Urine Methadone Screen Negative, Ur Barbituates Screen Negative, Ur Phencyclidine Scrn Negative, Ur Amphetamines Screen Negative, U Benzodiazepines Scrn Negative, Urine Cocaine Screen Negative, U Marijuana (THC) Screen Negative I & O for Labs for Last 24 Hours: Intake & Output 10/01/22 10/02/22 10/03/22 10/04/22 11:59 11:59 11:59 11:59 Weight 332 lb Head: Present atraumatic and normocephalic Neck: Present normal inspection Assessment and Plan *Assessment and plan (1) Hypertension during : Status: Acute Category: Medical Code(s): O16.9 - Unspecified maternal hypertension, unspecified trimester (2) Morbid obesity with body mass index (BMI) greater than or equal to 50: Status: Acute Category: Medical Code(s): E66.01 - Morbid (severe) obesity due to excess calories (3) History of gastric bypass: Status: Chronic Category: Surgical Code(s): Z98.84 - Bariatric surgery status (4) : Status: Acute Qualifiers: Weeks of gestation: 32 weeks Qualified Code(s): Z3A.32 - 32 weeks gestation of Category: Medical Code(s): Z34.90 - Encounter for supervision of normal , unspecified, unspecified trimester Plan Her blood pressures normalized in labor and delivery. She was in the 115-120 /70-80 range. Her headache has resolved. She did have normal blood work. Her urinalysis showed 1+ protein. We will go ahead and get a 24-hour urine for protein. I will see her back in the office next week.
[2022-02-22 16:00] LABS: Bacteria,Urine 3+ /lpf
[2022-02-22 16:28] LABS: Alanine Aminotransferase 22 U/L (12-78); Aspartate Amino Transferase 22 U/L (14-36); Blood Urea Nitrogen 9 mg/dl (7-17); Calcium 8.6 mg/dl (8.4-10.2); Carbon Dioxide 20 mmol/L (22.0-30.0); Creatinine Clearance Estimated 173 mL/min (50-200); Estimated Glomerular Filt Rate 156 ml/min (>60); GFR (African American) 188 ML/MIN (>60); Glucose 115 mg/dl (74-100); Uric Acid 4.2 mg/dl (2.5-6.2)
[2022-02-22 16:45] LABS: Opiate Screen,Urine Negative ng/ml (<300)
== END 2022-02-22 16:15 | disposition home or self-care (01) ==
LOC: OBOUT 15:17 → OB 15:19
PROVIDERS: PCP Family Medicine; Visit Provider Nurse Practitioner Obstetrics & Gynecology
DX: Z3A.32 32 weeks gestation of pregnancy; O13.3 Gestational [pregnancy-induced] hypertension without significant proteinuria, third trimester
CPT/HCPCS: 59025; 80048; 80305; 81001; 84450; 84460; 84550; 85025; 85378; 85384; 85610; 85730; 87086; G0463

== ENCOUNTER → 2022-02-23 14:24 | Outpatient (CLI) | payer OTHER, MEDICAID, SELFPAY ==
--- NOTE | 2022-02-23 14:24 | US_ITS ---
FINAL REPORT CLINICAL HISTORY: growth / hypertention in ; obesity FINDINGS: There is a single live intrauterine gestation. Presentation is cephalic. Placenta is anterior and grade 2. Cardiac activity is confirmed at 144 bpm. The cervix measures 4.7 cm. AMNIOTIC FLUID: Appropriate amount. MEASUREMENTS: ULTRASOUND AGE: 32 weeks 5 days. GESTATION AGE: 32 weeks 5 days. ESTIMATED WEIGHT: 2125 g GROWTH PERCENTILE: 54% BPD: 8.5 cm consistent with 34 weeks 3 days. OFD: 10.8 cm consistent with 34 weeks 4 days. HC: 30.6 cm consistent with 34 weeks 1 days. AC: 28.8 cm consistent with 32 weeks 6 days. FL: 6.4 cm consistent with 33 weeks 1 days. HC/AC: 1.06 CI: 79% FL/BPD: 75% FL/AC: 22% IMPRESSION: Single living IUP with an ultrasound age of 32 weeks 5 days. Reviewed, Interpreted and Dictated by Franki Toure III, MD Transcribed by Zheng Guevara Authenticated and . [facility]
== END ==
PROVIDERS: PCP Family Medicine; Visit Provider Obstetrics & Gynecology
DX: O16.9 Unspecified maternal hypertension, unspecified trimester (principal)
CPT/HCPCS: 76816

== ENCOUNTER → 2022-02-24 11:12 | Outpatient (CLI) | payer OTHER, MEDICAID, SELFPAY ==
[2022-02-24 18:10] LABS: Total Volume,Urine 1475 mL (600-1600)
[2022-02-24 19:03] LABS: Total Protein 24 Hour,Urine 192 mg/24 hr (40-90)
== END ==
PROVIDERS: PCP Family Medicine; Visit Provider Nurse Practitioner Obstetrics & Gynecology
DX: Z34.90 Encounter for supervision of normal pregnancy, unspecified, unspecified trimester (principal)
CPT/HCPCS: 84155

== ENCOUNTER 2022-03-02 14:39 | Outpatient (CLI) | payer OTHER, MEDICAID, SELFPAY ==
[2022-03-02 14:45] VITALS: BP 116/64; PULSE 110; RESP 17; TEMP 37.1; O2SAT 100; BMI 52.7
[2022-03-02 15:46] LABS: Microscopic, Urine URINE MICROSCOPIC (MICROSCOPIC)
[2022-03-02 15:57] LABS: Appearance,Urine CLEAR (Clear); Bilirubin,Urine Negative (Negative); Blood, Urine Negative (Negative); Color,Urine YELLOW (Yellow); Glucose,Urine (UA) Negative (Negative); Ketones,Urine TRACE (Negative); Leukocyte Esterase,Urine 1+ (Negative); Nitrate,Urine Negative (Negative); Protein,Urine Negative (Negative); Specific Gravity, Urine 1.025 (1.005-1.030); Urobilinogen,Urine 0.2 EU/dl (0.2)
[2022-03-02 16:09] LABS: Basophils # 0.3 K/mm3 (0-0.2); Basophils % 1.8 % (0.1-2.0); Eosinophils # 0.1 K/mm3 (0.0-0.4); Eosinophils % 0.7 % (0.1-12.0); Hematocrit 40.2 % (37.0-47.0); Hemoglobin 11.9 g/dL (12.2-16.2); Lymphocytes # 3.1 K/mm3 (0.7-4.5); Lymphocytes % 18.5 % (10-50); Mean Corpuscular HGB Conc 29.6 g/dL (31.8-35.4); Mean Corpuscular Hemoglobin 30.6 pg (27.0-31.2); Mean Corpuscular Volume 103.3 fl (81-99); Mean Platelet Volume 23.8 fl (7.4-10.4); Monocytes % 6.2 % (1.7-9.3); Neutrophils # 12.4 K/mm3 (1.8-7.8); Neutrophils % 74.5 % (37.0-80.0); Platelet Count 291 K/mm3 (142-424); Red Cell Distribution Width 19.1 % (11.5-17.5); White Blood Count 16.6 K/mm3 (4.8-10.8)
[2022-03-02 16:16] LABS: Amphetamine/Metha Screen,Urine Negative ng/ml (<1000); Barbiturates Screen,Urine Negative ng/ml (<200)
[2022-03-02 16:17] LABS: Benzodiazepines Screen,Urine Negative ng/ml (<200)
[2022-03-02 16:18] LABS: Blood Urea Nitrogen 8 mg/dl (7-17); Cannabinoid Screen,Urine Negative ng/ml (<50); Carbon Dioxide 22 mmol/L (22.0-30.0); Chloride 105 mmol/L (98-107); Cocaine Screen,Urine Negative ng/ml (<300); Creatinine Clearance Estimated 144 mL/min (50-200); Estimated Glomerular Filt Rate 126 ml/min (>60); GFR (African American) 153 ML/MIN (>60); MANUAL DIFFERENTIAL MANUAL DIFFERENTIAL (MANUAL DIFF); Sodium 135 mmol/L (136-145)
[2022-03-02 16:19] LABS: Alanine Aminotransferase 10 U/L (12-78); Aspartate Amino Transferase 18 U/L (14-36); Calcium 8.5 mg/dl (8.4-10.2); Glucose 76 mg/dl (74-100); Methadone Screen,Urine Negative ng/ml (<300); Phencyclidine Screen,Urine Negative ng/ml (<25); Uric Acid 4.5 mg/dl (2.5-6.2)
[2022-03-02 16:20] LABS: Opiate Screen,Urine Negative ng/ml (<300)
[2022-03-02 16:32] LABS: D-Dimer 0.95 ug/mL (0.0-0.5)
--- NOTE | 2022-03-02 16:45 | EXP.ACUTE.PN ---
Subjective *Date: 03/02/22 *Time: 16:45 Interval history: She was seen in my office today and her blood pressure was elevated in the office. She had a mild headache. Her reflexes are flat. She was seen last week and we did a complete PIH work-up which was negative. A 24-hour urine was negative for protein. Medical Exam Vital signs and Labs for Last 24 Hours: Temp Pulse Resp BP Pulse Ox 98.8 F 110 H 17 116/64 100 03/02/22 14:45 03/02/22 14:45 03/02/22 14:45 03/02/22 14:45 03/02/22 14:45 Laboratory Results - last 24 hr 03/02/22 14:45: WBC 16.6 H, RBC 3.90 L, Hgb 11.9 L, Hct 40.2, MCV 103.3 H, MCH 30.6, MCHC 29.6 L, RDW 19.1 H, Plt Count 291, MPV 23.8 H, Neut % (Auto) 74.5, Lymph % (Auto) 18.5, [place] % (Auto) 6.2, Eos % (Auto) 0.7, Baso % (Auto) 1.8, Neut # (Auto) 12.4 H, Lymph # (Auto) 3.1, [place] # (Auto) 1.0, Eos # (Auto) 0.1, Baso # (Auto) 0.3 H 03/02/22 14:45: D-Dimer 0.95 H, Sodium 135 L, Potassium 4.0, Chloride 105, Carbon Dioxide 22, Anion Gap 12.0, BUN 8, Creatinine 0.60, Estimated Creat Clear 144, Estimated GFR 126, Est GFR ( Amer) 153, Glucose 76, Uric Acid 4.5, Calcium 8.5, AST 18, ALT 10 L 03/02/22 14:45: Urine Color Yellow, Urine Appearance Clear, Urine pH 6.0, Ur Specific [place] 1.025, Urine Protein Negative, Urine Glucose (UA) Negative, Urine Ketones Trace, Urine Blood Negative, Urine Nitrate Negative, Urine Bilirubin Negative, Urine Urobilinogen 0.2, Ur Leukocyte Esterase 1+ A, Urine RBC None, Urine WBC 3-5, Ur Squamous Epith Cells 3-5, Urine Bacteria None 03/02/22 14:45: Urine Opiates Screen Negative, Urine Methadone Screen Negative, Ur Barbituates Screen Negative, Ur Phencyclidine Scrn Negative, Ur Amphetamines Screen Negative, U Benzodiazepines Scrn Negative, Urine Cocaine Screen Negative, U Marijuana (THC) Screen Negative I & O for Labs for Last 24 Hours: Intake & Output 02/28/22 03/01/22 03/02/22 03/03/22 11:59 11:59 11:59 11:59 Weight 337 lb Head: Present atraumatic Neck: Present normal inspection Respiratory: Present normal respiratory effort Cardiac: Present Reg Rate and Rhythm GI: Present soft; Absent tenderness Rectal (female): Present deferred (female): Present deferred Extremities: Present normal inspection and full ROM Skin: Present intact Neuro: Present alert, awake and oriented x 3 Comment:: Her reflexes are normal. Assessment and Plan *Assessment and plan (1) Hypertension during : Status: Acute Category: Medical Code(s): O16.9 - Unspecified maternal hypertension, unspecified trimester (2) Morbid obesity with body mass index (BMI) greater than or equal to 50: Status: Acute Category: Medical Code(s): E66.01 - Morbid (severe) obesity due to excess calories Plan While here in labor and delivery we repeated all her [facility] blood work at which was completely normal. She had no proteinuria. Platelets were normal. LFTs and uric acid were normal. She is feeling better. Her blood pressures are in the 115-120's over 70s. She received 1 dose of labetalol 100 mg. She also drank some caffeinated soda which seemed to help with her headache. We will send her home with labetalol 100 mg twice daily. She will follow-up with me in 48 hours time. She will take magnesium tablets 500 mg daily and she will also continue with drinking some caffeinated drinks. Her condition on discharge is stable and improved.
[2022-03-02 16:59] LABS: Eosinophils % 1 % (0-3); Lymphocytes % 12 % (10-50); Macrocytosis 1+; Monocytes % 6 % (2-9); Neutrophils % 81 % (42-76); Platelet Estimate Normal; Total Cells Counted 100
[2022-03-02 19:27] LABS: Activated Partial Thrombo Time 22.8 seconds (22.8-30.6); Prothrombin Time 9.8 seconds (10.1-12.5)
[2022-03-02 21:54] LABS: Fibrinogen 496 mg/dL (229.9-363.5)
== END 2022-03-02 16:45 | disposition home or self-care (01) ==
LOC: OBOUT 14:40 → OB 14:42
PROVIDERS: PCP Family Medicine; Visit Provider Nurse Practitioner Obstetrics & Gynecology
DX: O13.3 Gestational [pregnancy-induced] hypertension without significant proteinuria, third trimester; Z3A.33 33 weeks gestation of pregnancy
CPT/HCPCS: 59025; 80048; 80305; 81001; 84450; 84460; 84550; 85007; 85025; 85378; 85384; 85610; 85730; 87086; G0463

== ENCOUNTER → 2022-03-05 09:18 | Outpatient (CLI) | payer OTHER, MEDICAID, SELFPAY ==
[2022-03-05 09:43] LABS: Basophils # 0.1 K/mm3 (0-0.2); Basophils % 0.5 % (0.1-2.0); Eosinophils # 0.2 K/mm3 (0.0-0.4); Eosinophils % 1.3 % (0.1-12.0); Hematocrit 35.1 % (37.0-47.0); Hemoglobin 12.1 g/dL (12.2-16.2); Lymphocytes # 2.3 K/mm3 (0.7-4.5); Mean Corpuscular HGB Conc 34.4 g/dL (31.8-35.4); Mean Corpuscular Hemoglobin 30.6 pg (27.0-31.2); Mean Corpuscular Volume 88.9 fl (81-99); Monocytes # 0.6 K/mm3 (0.1-1.0); Monocytes % 4.8 % (1.7-9.3); Neutrophils # 8.6 K/mm3 (1.8-7.8); Neutrophils % 73.6 % (37.0-80.0); Platelet Count 342 K/mm3 (142-424); Red Blood Count 3.94 M/mm3 (4.20-5.40); Red Cell Distribution Width 13.2 % (11.5-17.5); White Blood Count 11.7 K/mm3 (4.8-10.8)
[2022-03-05 09:59] LABS: D-Dimer 1.01 ug/mL (0.0-0.5)
[2022-03-05 10:01] LABS: Activated Partial Thrombo Time 23.2 seconds (22.8-30.6); INR 0.89 (0.9-1.1); Prothrombin Time 9.7 seconds (10.1-12.5)
[2022-03-05 10:32] LABS: Alanine Aminotransferase 14 U/L (12-78); Anion Gap 11.9 mEq/L (5-15); Aspartate Amino Transferase 20 U/L (14-36); Blood Urea Nitrogen 9 mg/dl (7-17); Calcium 8.5 mg/dl (8.4-10.2); Carbon Dioxide 20 mmol/L (22.0-30.0); Chloride 107 mmol/L (98-107); Estimated Glomerular Filt Rate 126 ml/min (>60); GFR (African American) 153 ML/MIN (>60); Glucose 96 mg/dl (74-100); Potassium 3.9 mmoL/L (3.5-5.1); Sodium 135 mmol/L (136-145); Uric Acid 4.6 mg/dl (2.5-6.2)
[2022-03-05 12:13] LABS: Fibrinogen 472 mg/dL (229.9-363.5)
== END ==
PROVIDERS: PCP Family Medicine; Visit Provider Nurse Practitioner Obstetrics & Gynecology
DX: O16.9 Unspecified maternal hypertension, unspecified trimester (principal); Z3A.34 34 weeks gestation of pregnancy
CPT/HCPCS: 36415; 80048; 84450; 84460; 84550; 85025; 85378; 85384; 85610; 85730

== ENCOUNTER → 2022-03-07 11:16 | Outpatient (CLI) | payer OTHER, MEDICAID, SELFPAY ==
[2022-03-07 12:11] LABS: Total Volume,Urine 925 mL (600-1600)
[2022-03-07 12:19] LABS: Total Protein 24 Hour,Urine 148 mg/24 hr (40-90)
== END ==
PROVIDERS: PCP Family Medicine; Visit Provider Nurse Practitioner Obstetrics & Gynecology
DX: Z34.90 Encounter for supervision of normal pregnancy, unspecified, unspecified trimester (principal); Z3A.33 33 weeks gestation of pregnancy
CPT/HCPCS: 84155

== ENCOUNTER 2022-03-15 14:59 | Outpatient (CLI) | payer OTHER, MEDICAID, SELFPAY ==
[2022-03-15 15:18] VITALS: BMI 54.5
[2022-03-15 15:22] VITALS: BP 126/59; PULSE 103; RESP 18; TEMP 36.9; O2SAT 98; BMI 54.5
[2022-03-15 15:51] LABS: Microscopic, Urine URINE MICROSCOPIC (MICROSCOPIC)
[2022-03-15 15:52] LABS: Basophils % 0.3 % (0.1-2.0); Eosinophils # 0.1 K/mm3 (0.0-0.4); Eosinophils % 1.1 % (0.1-12.0); Hemoglobin 10.7 g/dL (12.2-16.2); Lymphocytes % 18.5 % (10-50); Mean Corpuscular HGB Conc 31.4 g/dL (31.8-35.4); Mean Corpuscular Hemoglobin 28.4 pg (27.0-31.2); Mean Corpuscular Volume 90.4 fl (81-99); Mean Platelet Volume 9.5 fl (7.4-10.4); Monocytes # 0.6 K/mm3 (0.1-1.0); Monocytes % 5.5 % (1.7-9.3); Neutrophils # 8.2 K/mm3 (1.8-7.8); Neutrophils % 74.7 % (37.0-80.0); Platelet Count 330 K/mm3 (142-424); Red Blood Count 3.76 M/mm3 (4.20-5.40); Red Cell Distribution Width 12.9 % (11.5-17.5); White Blood Count 10.9 K/mm3 (4.8-10.8)
[2022-03-15 15:55] LABS: Appearance,Urine CLEAR (Clear); Bilirubin,Urine Negative (Negative); Blood, Urine Negative (Negative); Color,Urine YELLOW (Yellow); Glucose,Urine (UA) Negative (Negative); Ketones,Urine Negative (Negative); Leukocyte Esterase,Urine 1+ (Negative); Nitrate,Urine Negative (Negative); Protein,Urine 1+ (Negative); Specific Gravity, Urine >= 1.030 (1.005-1.030); Urobilinogen,Urine 0.2 EU/dl (0.2)
[2022-03-15 16:07] LABS: Barbiturates Screen,Urine Negative ng/ml (<200)
[2022-03-15 16:07] LABS: D-Dimer 1.07 ug/mL (0.0-0.5)
[2022-03-15 16:08] LABS: Amphetamine/Metha Screen,Urine Negative ng/ml (<1000); Benzodiazepines Screen,Urine Negative ng/ml (<200)
[2022-03-15 16:09] LABS: Cannabinoid Screen,Urine Negative ng/ml (<50)
[2022-03-15 16:10] LABS: Cocaine Screen,Urine Negative ng/ml (<300); Methadone Screen,Urine Negative ng/ml (<300)
[2022-03-15 16:11] LABS: Opiate Screen,Urine Negative ng/ml (<300)
[2022-03-15 16:12] LABS: Phencyclidine Screen,Urine Negative ng/ml (<25)
[2022-03-15 16:14] LABS: Activated Partial Thrombo Time 23.5 seconds (22.8-30.6); Fibrinogen 430 mg/dL (229.9-363.5); INR 0.87 (0.9-1.1); Prothrombin Time 9.5 seconds (10.1-12.5)
[2022-03-15 16:30] LABS: Bacteria,Urine 3+ /lpf
[2022-03-15 17:09] LABS: Alanine Aminotransferase 14 U/L (12-78); Anion Gap 10.9 mEq/L (5-15); Aspartate Amino Transferase 19 U/L (14-36); Calcium 8.3 mg/dl (8.4-10.2); Carbon Dioxide 22 mmol/L (22.0-30.0); Chloride 106 mmol/L (98-107); Glucose 90 mg/dl (74-100); Potassium 3.9 mmoL/L (3.5-5.1); Sodium 135 mmol/L (136-145); Uric Acid 4.7 mg/dl (2.5-6.2)
[2022-03-15 17:10] LABS: Blood Urea Nitrogen 10 mg/dl (7-17); Creatinine Clearance Estimated 144 mL/min (50-200); Estimated Glomerular Filt Rate 126 ml/min (>60); GFR (African American) 153 ML/MIN (>60)
== END 2022-03-15 17:14 | disposition home or self-care (01) ==
LOC: OBOUT 15:01 → OB 15:02
PROVIDERS: PCP Family Medicine; Visit Provider Nurse Practitioner Obstetrics & Gynecology
DX: O13.3 Gestational [pregnancy-induced] hypertension without significant proteinuria, third trimester (principal); Z3A.35 35 weeks gestation of pregnancy
CPT/HCPCS: 36415; 59025; 80048; 80305; 81001; 84450; 84460; 84550; 85025; 85378; 85384; 85610; 85730; 87086; G0463

== ENCOUNTER → 2022-03-19 17:33 | Outpatient (CLI) | payer OTHER, MEDICAID, SELFPAY | PROVIDERS: PCP Nurse Practitioner Obstetrics & Gynecology; Visit Provider Nurse Practitioner Obstetrics & Gynecology | DX: Z34.90 Encounter for supervision of normal pregnancy, unspecified, unspecified trimester (principal) | CPT/HCPCS: 86403 ==

== ENCOUNTER 2022-03-22 11:38 | Outpatient (CLI) | payer OTHER, MEDICAID, SELFPAY ==
[2022-03-22 11:41] VITALS: BMI 55.3
[2022-03-22 12:11] VITALS: BP 124/83; PULSE 89; RESP 18; TEMP 36.9; O2SAT 97; BMI 55.3
[2022-03-22 12:16] LABS: Microscopic, Urine URINE MICROSCOPIC (MICROSCOPIC)
[2022-03-22 12:20] LABS: Basophils # 0.1 K/mm3 (0-0.2); Basophils % 0.9 % (0.1-2.0); Eosinophils # 0.1 K/mm3 (0.0-0.4); Eosinophils % 0.8 % (0.1-12.0); Hematocrit 33.6 % (37.0-47.0); Hemoglobin 11.5 g/dL (12.2-16.2); Lymphocytes # 1.9 K/mm3 (0.7-4.5); Lymphocytes % 17.1 % (10-50); Mean Corpuscular HGB Conc 34.3 g/dL (31.8-35.4); Mean Corpuscular Hemoglobin 29.8 pg (27.0-31.2); Mean Corpuscular Volume 86.9 fl (81-99); Mean Platelet Volume 9.5 fl (7.4-10.4); Monocytes # 0.7 K/mm3 (0.1-1.0); Monocytes % 5.9 % (1.7-9.3); Neutrophils # 8.5 K/mm3 (1.8-7.8); Neutrophils % 75.3 % (37.0-80.0); Platelet Count 334 K/mm3 (142-424); Red Blood Count 3.86 M/mm3 (4.20-5.40); Red Cell Distribution Width 13.2 % (11.5-17.5); White Blood Count 11.3 K/mm3 (4.8-10.8)
[2022-03-22 12:30] LABS: Appearance,Urine SL CLOUDY (Clear); Bilirubin,Urine Negative (Negative); Blood, Urine Negative (Negative); Color,Urine YELLOW (Yellow); Glucose,Urine (UA) Negative (Negative); Ketones,Urine Negative (Negative); Leukocyte Esterase,Urine 1+ (Negative); Nitrate,Urine Negative (Negative); Protein,Urine 2+ (Negative); Specific Gravity, Urine >= 1.030 (1.005-1.030); Urobilinogen,Urine 0.2 EU/dl (0.2)
[2022-03-22 12:31] LABS: Alanine Aminotransferase 11 U/L (12-78); Aspartate Amino Transferase 20 U/L (14-36); Blood Urea Nitrogen 9 mg/dl (7-17); Calcium 8.7 mg/dl (8.4-10.2); Carbon Dioxide 23 mmol/L (22.0-30.0); Chloride 105 mmol/L (98-107); Creatinine Clearance Estimated 144 mL/min (50-200); Estimated Glomerular Filt Rate 126 ml/min (>60); GFR (African American) 153 ML/MIN (>60); Glucose 69 mg/dl (74-100); Sodium 134 mmol/L (136-145); Uric Acid 5.4 mg/dl (2.5-6.2)
[2022-03-22 12:38] LABS: D-Dimer 1.13 ug/mL (0.0-0.5)
[2022-03-22 12:41] LABS: Amphetamine/Metha Screen,Urine Negative ng/ml (<1000)
[2022-03-22 12:42] LABS: Barbiturates Screen,Urine Negative ng/ml (<200)
[2022-03-22 12:43] LABS: Benzodiazepines Screen,Urine Negative ng/ml (<200); Cannabinoid Screen,Urine Negative ng/ml (<50)
[2022-03-22 12:44] LABS: Cocaine Screen,Urine Negative ng/ml (<300)
[2022-03-22 12:45] LABS: Methadone Screen,Urine Negative ng/ml (<300); Opiate Screen,Urine Negative ng/ml (<300)
[2022-03-22 12:46] LABS: Phencyclidine Screen,Urine Negative ng/ml (<25)
[2022-03-22 12:51] LABS: Activated Partial Thrombo Time 20.7 seconds (22.8-30.6); Fibrinogen 450 mg/dL (229.9-363.5); INR 0.89 (0.9-1.1); Prothrombin Time 9.7 seconds (10.1-12.5)
[2022-03-22 12:52] LABS: Bacteria,Urine 1+ /lpf; Mucus,Urine Trace /lpf
== END 2022-03-22 14:05 | disposition home or self-care (01) ==
LOC: OBOUT 11:39 → OB 11:39
PROVIDERS: PCP Family Medicine; Visit Provider Nurse Practitioner Obstetrics & Gynecology
DX: O16.3 Unspecified maternal hypertension, third trimester (principal); Z3A.36 36 weeks gestation of pregnancy
CPT/HCPCS: 59025; 80048; 80305; 81001; 84450; 84460; 84550; 85025; 85378; 85384; 85610; 85730; 87086; G0463

== ENCOUNTER → 2022-03-24 11:13 | Outpatient (CLI) | payer OTHER, MEDICAID, SELFPAY ==
[2022-03-24 14:04] LABS: Patient Height,Urine 67 inches; Patient Weight,Urine 330 lbs
[2022-03-24 14:05] LABS: Collection Time,Urine 24 hours; Creatinine 24 Hour,Urine 1908 mg/24hr (630-2500); Creatinine Clearance Urine 153.2 mL/min (25-115); Creatinine,Urine Random 212 mg/dL (Not Estab.); Total Protein 24 Hour,Urine 1098 mg/24 hr (40-90); Total Volume,Urine 900 mL (600-1600)
== END ==
PROVIDERS: PCP Family Medicine; Visit Provider Nurse Practitioner Obstetrics & Gynecology
DX: Z01.812 Encounter for preprocedural laboratory examination (principal); Z34.90 Encounter for supervision of normal pregnancy, unspecified, unspecified trimester
CPT/HCPCS: 82575; 84155

== ENCOUNTER 2022-03-24 17:23 | Inpatient (IN) | payer OTHER, MEDICAID, SELFPAY ==
[2022-03-24 18:07] VITALS: BMI 55.3
[2022-03-24 19:01] LABS: Coronavirus 19, PCR Not Detected (NotDetected); Influenza A, PCR Not Detected (NotDetected); Influenza B, PCR Not Detected (NotDetected)
[2022-03-24 19:03] LABS: Microscopic, Urine URINE MICROSCOPIC (MICROSCOPIC)
[2022-03-24 19:05] VITALS: BP 179/89; PULSE 106; RESP 17; TEMP 37; O2SAT 99; BMI 55.3
[2022-03-24 19:10] LABS: Appearance,Urine CLEAR (Clear); Bilirubin,Urine Negative (Negative); Blood, Urine Negative (Negative); Color,Urine YELLOW (Yellow); Glucose,Urine (UA) Negative (Negative); Ketones,Urine TRACE (Negative); Leukocyte Esterase,Urine Negative (Negative); Nitrate,Urine Negative (Negative); Protein,Urine 2+ (Negative); Specific Gravity, Urine >= 1.030 (1.005-1.030)
[2022-03-24 19:22] LABS: Amphetamine/Metha Screen,Urine Negative ng/ml (<1000)
[2022-03-24 19:23] LABS: Barbiturates Screen,Urine Negative ng/ml (<200); Benzodiazepines Screen,Urine Negative ng/ml (<200)
[2022-03-24 19:24] LABS: Basophils # 0.1 K/mm3 (0-0.2); Basophils % 0.4 % (0.1-2.0); Eosinophils # 0.1 K/mm3 (0.0-0.4); Eosinophils % 0.5 % (0.1-12.0); Hematocrit 31.9 % (37.0-47.0); Lymphocytes # 2.1 K/mm3 (0.7-4.5); Lymphocytes % 17.7 % (10-50); Mean Corpuscular HGB Conc 34.6 g/dL (31.8-35.4); Mean Corpuscular Hemoglobin 30.6 pg (27.0-31.2); Mean Corpuscular Volume 88.5 fl (81-99); Mean Platelet Volume 9.6 fl (7.4-10.4); Monocytes # 0.8 K/mm3 (0.1-1.0); Monocytes % 6.8 % (1.7-9.3); Neutrophils # 8.8 K/mm3 (1.8-7.8); Neutrophils % 74.7 % (37.0-80.0); Platelet Count 338 K/mm3 (142-424); Red Cell Distribution Width 13.2 % (11.5-17.5); White Blood Count 11.8 K/mm3 (4.8-10.8)
[2022-03-24 19:24] LABS: Cannabinoid Screen,Urine Negative ng/ml (<50)
[2022-03-24 19:25] LABS: Cocaine Screen,Urine Negative ng/ml (<300); Methadone Screen,Urine Negative ng/ml (<300)
[2022-03-24 19:26] LABS: Opiate Screen,Urine Negative ng/ml (<300)
[2022-03-24 19:27] LABS: Phencyclidine Screen,Urine Negative ng/ml (<25)
[2022-03-24 19:39] LABS: Bacteria,Urine Trace /lpf
[2022-03-24 19:41] LABS: Potassium 3.9 mmoL/L (3.5-5.1); Sodium 131 mmol/L (136-145)
[2022-03-24 19:42] LABS: Alanine Aminotransferase 11 U/L (12-78); Anion Gap 6.9 mEq/L (5-15); Aspartate Amino Transferase 20 U/L (14-36); Blood Urea Nitrogen 9 mg/dl (7-17); Calcium 9.2 mg/dl (8.4-10.2); Carbon Dioxide 23 mmol/L (22.0-30.0); Chloride 105 mmol/L (98-107); Creatinine Clearance Estimated 124 mL/min (50-200); Estimated Glomerular Filt Rate 106 ml/min (>60); GFR (African American) 128 ML/MIN (>60); Glucose 70 mg/dl (74-100); Uric Acid 5.7 mg/dl (2.5-6.2)
[2022-03-24 19:45] VITALS: BP 128/70; PULSE 89; RESP 18; TEMP 36.8; O2SAT 99
[2022-03-24 21:43] LABS: Fibrinogen 436 mg/dL (229.9-363.5); Prothrombin Time 9.8 seconds (10.1-12.5)
[2022-03-24 21:45] VITALS: BP 158/90; PULSE 78; RESP 18
[2022-03-24 22:20] VITALS: BP 152/85; PULSE 79; RESP 18
[2022-03-24 23:00] VITALS: BP 157/89; PULSE 100; RESP 18
[2022-03-24 23:30] VITALS: BP 159/91; PULSE 86; RESP 18
[2022-03-25] VITALS (39 sets, daily range): BP systolic 100–178; BP diastolic 53–100; PULSE 63–104; RESP 13–77; TEMP 36.6–37.1; O2SAT 96–100
--- NOTE | 2022-03-25 07:08 | EXP.ANES.CKL ---
[facility] Medical History Morbid obesity with body mass index (BMI) greater than or equal to 50 Social History Smoking Status: Never smoker alcohol intake: never substance use type: denies use current occupational status: employed Travel in the last 8 weeks: None [facility] Anesthesia Checklist Patient Identification Patient Identification: Arm Band and Verbal (Name & ) Structural Data Admitted From: Home Planned Operative Procedure/s: Primary C/S Consent for Planned Operative Procedure(s) Verified: Yes NPO Status Verified Time NPO: 00:00 Chart Verification Results Verified: CBC and BMP Additional verifications Patient : Yes Airway Assessment C-Spine Mobility Assessed: Yes TMJ Mobility Assessed: Yes Dentition: Good Dentition Neurological Assessment Level of Consciousness: Awake Hx Seizures: No Numbness or tingling in extremities: No Anesthesia Plan Anesthesia Risk discussed: Yes Anesthesia Plan: Verified ASA Class: III Anesthesia Type: Spinal
--- NOTE | 2022-03-25 08:33 | EXP.ANES.I ---
[facility] Anesthesia Record Part I Anesthesia Record I Intake, IV Amount: 800 Estimated blood loss (mL): 600 Urine output (mL): 0 Blood Pressure: 114/77 SaO2: 98 Pulse Rate: 74 Respiratory Rate: 13 Temperature: 98 F Patient is:: Awake Stable to PACU at:: 08:32
--- NOTE | 2022-03-25 08:38 | EXP.OP.NOTE ---
Date of procedure: 03/25/22 Pre-op Diagnosis:: Term , -induced hypertension, proteinuria, maternal obesity, pelvic disproportion Post-op Diagnosis:: term , -induced hypertension, maternal obesity proteinuria, pelvic disproportion Procedure performed:: Primary lower segment transverse section Surgeon:: Henrry Garcia MD Runway Model(s):: Dr. Dupont RESIDENT CARE MANAGER:: Dexter Car Anesthesia: spinal Estimated blood loss (mL): 600 Clinical Note:: She is a 21-year-old 1 para 0 at 37 weeks gestational age. She has been followed for increased blood pressure. She has been taking labetalol 200 mg twice daily. We did increase the dosage from 100 twice daily. She had a 24-hour urine that showed over 1000 mg of protein in her urine which had changed from a previous 24-hour urine. As result of this and the fact that her blood pressure was rising we elected to deliver her. She had a very narrow pelvis so we elected to do a section. The risks and benefits of surgery were discussed with the patient and her prior to surgery Operative findings:: She delivered a liveborn female child at 7:54 AM on the morning of March 25, 2022. The baby had Apgars of 8 at 1 minute and 9 at 5 minutes. Ovaries and tubes appeared normal.. Operative note:: She was taken to the operating room where spinal anesthesia was found be adequate. She was prepped and draped in normal sterile fashion in the supine position. A Hackett catheter was in the bladder. After she was prepped we placed a panni retractor on the skin. A Pfannenstiel skin incision was made with knife then carried through to the underlying layer of fascia with cautery. The fascia was opened in the midline with cautery and extended laterally using David scissors. Richard clamps were applied to the superior aspect of the fascial incision which was tented up and the underlying rectus muscles dissected off using cautery. The Arrey clamps were then applied to the inferior aspect of the fascial incision which in a similar fashion was tented up and the underlying rectus muscles dissected off using cautery. The rectus muscles were then in the midline, the peritoneum identified, and entered bluntly. An Quintin retractor was then inserted into the abdominal cavity. Transverse incision was made through the uterine muscle above the bladder flap to the amnion. This incision was then extended superiorly and inferiorly using the fingers as traction. The amnion was entered sharply with knife. There was clear amniotic fluid. The 's head was then delivered atraumatically. This was followed by the anterior shoulder and the rest of the infant's body atraumatically. The oropharynx and nasopharynx were bulb suctioned. The was vigorous so we allowed the cord to continue to pulsate for approximately 1 minute. The cord was then doubly clamped and cut. The was then handed off to Dr. Dickey who assigned Apgars of 8 at 1 minute and 9 at 5 minutes. We then obtained cord blood. Using gentle traction on the cord and fundal massage I was able to easily deliver the placenta intact. It had a normal three-vessel cord. The uterine incision was then closed using running 0 Vicryl suture in a locked fashion. A second layer of the same suture was used to imbricate the first layer. The bladder peritoneum was then closed using running 2-0 Vicryl suture in a locked fashion. The gutters and cul-de-sac were then cleared of clots and debris . Once again hemostasis was assured. The peritoneum was closed with running 2-0 Vicryl suture. The fascia was closed using running #1 Vicryl suture. The subcutaneous tissues were then irrigated with warm water followed by closure Becka's fascia using running 2-0 Monocryl suture. The skin was closed with running subcuticular 2-0 Monocryl strata fix suture. I then cleaned the skin with Hibiclens. Sterile dressings were applied. Anesthesia
--- NOTE | 2022-03-25 08:50 | EXP.HP ---
History of Present Illness *Admission Date: 03/24/22 *Reason for visit:: -induced hypertension, chronic hypertension, morbid obesity *History of present illness: She is a 21-year-old 1 para 0 at 37 weeks gestational age. She has had increased blood pressure in the and we have required an increase in dosage of blood pressure medicine. She recently had a 24-hour urine that showed she spilled over 1000 mg of protein in her urine. This has increased from just over 100 mg of protein in her urine. As result of that -induced hypertension on top of chronic hypertension was diagnosed. She is also morbidly obese and has gained about 70 pounds this . She has had a history of gastric bypass surgery. As result of this she is admitted for primary lower segment transverse section. She has a very narrow pelvis. [facility] Medical History Morbid obesity with body mass index (BMI) greater than or equal to 50 Social History Smoking Status: Never smoker alcohol intake: never substance use type: denies use current occupational status: employed Travel in the last 8 weeks: None Review of Systems Review of Systems Review of systems:: pertinent systems reviewed and negative unless documented below Meds Home Medications and Allergies Home Medications Medication Instructions Recorded Confirmed Type prenat.vits,ayla,voi-caev-yacdw 1 tab PO DAILY 08/31/21 03/22/22 History ferrous sulfate 325 mg (65 mg 325 mg PO DAILY #30 tabs 12/22/21 03/22/22 Rx iron) tablet aspirin 81 mg tablet,delayed 81 mg PO DAILY 02/02/22 03/22/22 History release (Adult Aspirin Regimen) labetalol 200 mg tablet 200 mg PO BID #60 tabs 03/05/22 03/22/22 Rx New Prescriptions to Start Prescriptions: Allergies Allergy/AdvReac Type Severity Reaction Status Date / Time No Known Allergies Allergy Verified 03/22/22 10:55 Exam Data for Last 24 hours Vital signs and Labs for Last 24 Hours: Temp Pulse Resp BP Pulse Ox 98 F 74 13 114/77 99 03/25/22 08:33 03/25/22 08:33 03/25/22 08:33 03/25/22 08:33 03/24/22 19:45 Laboratory Results - last 24 hr 03/24/22 17:30: Urine Color Yellow, Urine Appearance Clear, Urine pH 6.0, Ur Specific [place] >= 1.030, Urine Protein 2+, Urine Glucose (UA) Negative, Urine Ketones Trace, Urine Blood Negative, Urine Nitrate Negative, Urine Bilirubin Negative, Urine Urobilinogen 1.0, Ur Leukocyte Esterase Negative, Urine RBC None, Urine WBC 3-5, Ur Squamous Epith Cells 5-10, Urine Bacteria Trace 03/24/22 17:30: Urine Opiates Screen Negative, Urine Methadone Screen Negative, Ur Barbituates Screen Negative, Ur Phencyclidine Scrn Negative, Ur Amphetamines Screen Negative, U Benzodiazepines Scrn Negative, Urine Cocaine Screen Negative, U Marijuana (THC) Screen Negative 03/24/22 18:07: SARS-CoV-2 (PCR) Not detected, Influenza A Untype (PCR) Not detected, Influenza Type B (PCR) Not detected 03/24/22 18:45: WBC 11.8 H, RBC 3.60 L, Hgb 11.0 L, Hct 31.9 L, MCV 88.5, MCH 30.6, MCHC 34.6, RDW 13.2, Plt Count 338, MPV 9.6, Neut % (Auto) 74.7, Lymph % (Auto) 17.7, [place] % (Auto) 6.8, Eos % (Auto) 0.5, Baso % (Auto) 0.4, Neut # (Auto) 8.8 H, Lymph # (Auto) 2.1, [place] # (Auto) 0.8, Eos # (Auto) 0.1, Baso # (Auto) 0.1 03/24/22 18:45: D-Dimer , Sodium 131 L, Potassium 3.9, Chloride 105, Carbon Dioxide 23, Anion Gap 6.9, BUN 9, Creatinine 0.70, Estimated Creat Clear 124, Estimated GFR 106, Est GFR ( Amer) 128, Glucose 70 L, Uric Acid 5.7, Calcium 9.2, AST 20, ALT 11 L 03/24/22 18:45: Blood Type A Positive, Antibody Screen Negative 03/24/22 21:03: PT 9.8 L, INR 0.90, APTT 20.0 L, Fibrinogen 436 H I & O for Last 24 hours: Intake & Output 10/31/22 11/01/22 11/02/22 11/03/22 11:59 11:59 11:59 11:59 Intake Total 800 / 800 Output Total 150 / 150 Balance 650 / 650 Weight
--- NOTE | 2022-03-25 08:55 | PC.NURSE ---
Message left with Dr Garcia's office regarding pt blood pressure elevated
--- NOTE | 2022-03-25 10:01 | SUR.OPER ---
tap block began at 0820. End time is 0825. time out completed.
[2022-03-25 10:52] LABS: Magnesium 1.5 mg/dl (1.6-2.3)
[2022-03-25 15:08] LABS: Microscopic,Cath URINE MICROSCOPIC (MICROSCOPIC)
[2022-03-25 15:16] LABS: Appearance,Urine/Cath CLEAR (Clear); Blood, Urine/Cath Negative (Negative); Color,Urine/Cath YELLOW (Yellow); Glucose,Urine/Cath (UA) Negative (Negative); Ketones,Urine/Cath Negative (Negative); Leukocyte Esterase,Cath Negative (Negative); Nitrate,Cath Negative (Negative); Protein,Urine/Cath 2+ (Negative); Specific Gravity, Urine/Cath >= 1.030 (1.005-1.030)
[2022-03-25 16:20] LABS: Bilirubin,Cath 1+ (Negative)
[2022-03-25 16:40] LABS: Bacteria,Urine/Cath 1+ /lpf; CA Oxalate Crystals,Ur/Cath 1+ /lpf; RBC,Urine/Cath Occasional # /hpf (0-3); WBC,Urine/Cath Occasional #/hpf (0-3)
[2022-03-25 21:59] LABS: Hematocrit 32.5 % (37.0-47.0); Hemoglobin 10.6 g/dL (12.2-16.2)
[2022-03-26] VITALS (9 sets, daily range): BP systolic 140–167; BP diastolic 72–94; PULSE 66–92; RESP 18; TEMP 36.6–37.1; O2SAT 98–100
--- NOTE | 2022-03-26 07:15 | PC.NURSE ---
REPORT GIVEN TO DORENE FALCON
[2022-03-26 07:25] LABS: Hematocrit 29.1 % (37.0-47.0); Hemoglobin 9.7 g/dL (12.2-16.2)
--- NOTE | 2022-03-26 08:18 | EXP.ACUTE.PN ---
Subjective *Date: 03/26/22 *Time: 08:18 Interval history: She is doing well this morning. She did have an episode last night around 8:00 where her blood pressure was in the 100/60 range. She had no symptoms as result of this. Her hemoglobin was stable. She was on magnesium sulfate at the time and we think that the magnesium sulfate caused her to have the lowish blood pressure. She is doing well this morning. We did hold her labetalol last night. Her pain is well controlled. She is breast-feeding. Medical Exam Vital signs and Labs for Last 24 Hours: Vital Signs Temp Pulse Pulse Pulse Resp BP BP 03/25/22 23:30 98.8 F 77 18 133/75 03/26/22 04:02 98.8 F 78 18 142/72 H 03/26/22 03:50 18 03/26/22 01:34 18 03/25/22 21:10 18 03/25/22 20:10 97.9 F 77 18 100/60 L 03/25/22 20:01 18 03/25/22 17:58 86 127/77 03/25/22 16:59 98.4 F 78 17 120/58 L 03/25/22 15:55 91 H 121/53 L 03/25/22 15:14 104 H 122/78 03/25/22 13:57 92 H 135/74 03/25/22 12:55 99 H 134/67 03/25/22 12:40 100 H 133/76 03/25/22 12:25 78 132/76 03/25/22 12:10 82 136/71 03/25/22 11:55 77 140/76 03/25/22 11:42 84 143/79 H 03/25/22 10:52 82 137/75 03/25/22 10:40 81 132/72 03/25/22 10:30 63 143/86 H 03/25/22 10:20 65 139/80 03/25/22 09:45 65 154/81 H 03/25/22 09:25 77 147/90 H 03/25/22 09:20 98.0 F 69 19 149/90 H 03/25/22 09:02 66 16 167/94 H 03/25/22 08:52 66 16 178/100 H 03/25/22 08:42 66 16 158/96 H 03/25/22 08:32 98.0 F 74 16 114/77 03/25/22 08:33 98 F 74 13 114/77 Pulse Ox 03/25/22 23:30 100 03/26/22 04:02 100 03/26/22 03:50 03/26/22 01:34 03/25/22 21:10 03/25/22 20:10 98 03/25/22 20:01 03/25/22 17:58 03/25/22 16:59 100 03/25/22 15:55 03/25/22 15:14 03/25/22 13:57 03/25/22 12:55 03/25/22 12:40 03/25/22 12:25 03/25/22 12:10 03/25/22 11:55 03/25/22 11:42 03/25/22 10:52 03/25/22 10:40 03/25/22 10:30 03/25/22 10:20 03/25/22 09:45 03/25/22 09:25 03/25/22 09:20 98 03/25/22 09:02 98 03/25/22 08:52 96 03/25/22 08:42 98 03/25/22 08:32 99 03/25/22 08:33 Intake and Output 03/25/22 03/26/22 03/26/22 19:59 03:59 11:59 Intake Total 460 / 460 Output Total 400 / 1200 800 / 1200 Balance -400 / -740 -340 / -740 Intake: Intake, Other Amount 360 / 360 Intake, Total IV Amount 100 / 100 Cefazolin Sodium 2 gm In 0.9 % 100 / 100 Sodium Chloride 100 ml @ 200 mls/hr IV Q8H [facility] Rx#:[id number] Output: Output, Urine Amount 800 / 800 Output, Urine Amount (Catheter) 400 / 400 Hackett 400 / 400 Other: Number of Voids 3 Laboratory Results - last 24 hr 03/25/22 07:30: Urine Color Yellow, Urine Appearance Clear, Urine pH 6.0, Ur Specific [place] >= 1.030, Urine Protein 2+, Urine Glucose (UA) Negative, Urine Ketones Negative, Urine Blood Negative, Urine Nitrate Negative, Urine Bilirubin 1+ A, Urine Urobilinogen 1.0, Ur Leukocyte Esterase Negative, Urine RBC Occasional, Urine WBC Occasional, Ur Squamous Epith Cells 3-5, Calcium Oxalate Crystal 1+, Urine Bacteria 1+ 03/25/22 10:28: Magnesium 1.5 L 03/25/22 21:16: Hgb 10.6 L, Hct 32.5 L 03/26/22 07:05: Hgb 9.7 L, Hct 29.1 L I & O for Labs for Last 24 Hours: Intake & Output 03/23/22 03/24/22 03/25/22 03/26/22 11:59 11:59 11:59 11:59 Intake Total 800 / 800 460 / 460 Output Total 150 / 150 1200 / 1200 Balance 650 / 650 -740 / -740 Weight 352 lb 15.996 oz Head: Present atraumatic Neck: Present normal inspection Respiratory: Present normal respiratory effort GI: Present soft Assessment and Plan *Assessment and plan (1) delivery delivered: Status: Acute Category: Medical Code(s): O82 - Encounter for delivery without leonor
--- NOTE | 2022-03-26 13:28 | EXP.ANES.II ---
[facility] Anesthesia Record Part II Anesthesia Record Part II Discharge Time: 09:02 Destination: Obstetric PACU nurse assessment reviewed?: Yes Patient Condition:: Good Anesthesia Complications:: None Swallowing reflex intact?: Yes Cyanosis?: No Blood Pressure: 167/94 Pulse Rate: 66 Temperature: 98 F Mental Status: Alert & Oriented Pain level:: 0 Nausea and/or vomitting:: None Intake, IV Amount: 0
[2022-03-27] VITALS (21 sets, daily range): BP systolic 116–164; BP diastolic 59–88; PULSE 68–83; RESP 17–20; TEMP 36.5–36.9; O2SAT 96–99
--- NOTE | 2022-03-27 12:00 | EXP.ACUTE.PN ---
Subjective *Date: 03/27/22 *Time: 12:00 Interval history: POD # 2 s/p PLTCS, preeclampsia with labile blood pressure Resting in bed. She is breast and formula feeding. Pain is controlled. Light lochia. Voiding without difficulty. Passing flatus. Tolerating regular diet. She denies fever/chills, chest pain and shortness of breath. Denies headaches. She admits to bilateral lower extremity swelling. Medical Exam Vital signs and Labs for Last 24 Hours: Vital Signs Temp Pulse Pulse Resp BP BP Pulse Ox 03/27/22 11:30 98.5 F 83 17 143/86 H 98 03/27/22 08:10 98.2 F 74 20 156/83 H 99 03/27/22 03:45 97.9 F 76 18 156/88 H 96 03/27/22 00:15 97.7 F 75 18 141/86 H 03/26/22 23:15 152/86 H 03/26/22 22:20 92 H 158/91 H 03/26/22 21:15 97.9 F 76 18 167/94 H 98 03/26/22 13:29 98 F 66 167/94 H I & O for Labs for Last 24 Hours: Intake & Output 03/24/22 03/25/22 03/26/22 03/27/22 23:59 23:59 23:59 23:59 Intake Total 800 / 800 460 / 460 Output Total 550 / 550 800 / 800 Balance 250 / 250 -340 / -340 Weight 352 lb 15.996 oz Constitutional: Present no acute distress and cooperative Head: Present atraumatic and normocephalic ENT: Present mucous membranes moist Neck: Present normal inspection and full ROM Respiratory: Present CTA bilaterally and normal respiratory effort Cardiac: Present Reg Rate and Rhythm GI: Present soft and normal bowel sounds; Absent distention, tenderness, guarding or rebound Comments:: Uterine fundus firm and below umbilicus. Pfannenstiel incision clean/dry/intact, no erythema, dehiscence or drainage Rectal (female): Present deferred (female): Present deferred Extremities: Present full ROM and edema (+3 bilateral lower extremity edema); Absent calf tenderness Neuro: Present alert, awake, oriented x 3 and moves all extremities Assessment and Plan *Assessment and plan (1) : Status: Acute Qualifiers: Weeks of gestation: 36 weeks Qualified Code(s): Z3A.36 - 36 weeks gestation of Category: Medical Code(s): Z34.90 - Encounter for supervision of normal , unspecified, unspecified trimester (2) delivery delivered: Problem details: POD # 2 s/p PLTCS Status: Acute Category: Medical Code(s): O82 - Encounter for delivery without indication (3) Preeclampsia: Problem details: labile blood pressures alternating from normotensive, mild range and severe range Status: Acute Qualifiers: Trimester: third trimester Qualified Code(s): O14.93 - Unspecified pre-eclampsia, third trimester Category: Medical Code(s): O14.90 - Unspecified pre-eclampsia, unspecified trimester (4) pelvic disproportion antepartum: Status: Acute Category: Medical Code(s): O33.9 - Maternal care for disproportion, unspecified (5) Morbid obesity with body mass index (BMI) greater than or equal to 50: Status: Acute Category: Medical Code(s): E66.01 - Morbid (severe) obesity due to excess calories (6) Anxiety: Status: Acute Category: Medical Code(s): F41.9 - Anxiety disorder, unspecified (7) Depression: Status: Acute Qualifiers: Depression Type: unspecified Qualified Code(s): F32.A - Depression, unspecified Category: Medical Code(s): F32.A - Depression, unspecified Plan Continue labetalol 200 mg BID Mag sulfate was started for labile blood pressures POD #0, normotensive mixed with severe range. However, mag sulfate was discontinued after 8 hours 44 minutes secondary to BP 100/60 on POD # 0. She is currently taking Labetalol 200 mg BID. She has continues to have normotensive BP with mild and intermittent severe range BP while taking Labetalol. Restart mag sulfate and continue for 24 hours Continue to monitor BP at this time Bedside commode Hold NS
[2022-03-28 04:47] VITALS: BP 125/80
[2022-03-28 08:23] VITALS: BP 144/71; PULSE 72; RESP 17; TEMP 36.8; O2SAT 98
[2022-03-28 09:26] VITALS: BP 146/81; PULSE 81
[2022-03-28 10:30] VITALS: BP 144/82
[2022-03-28 11:20] VITALS: BP 132/80
--- NOTE | 2022-03-28 13:22 | EXP.DC.SUM ---
General Admission date:: 03/24/22 Discharge date: 03/28/22 HPI HPI HPI: POD # 3 s/p PLTCS, preeclampsia with severe features Sitting comfortably in bed. She is breast and formula feeding. Feeling well. Pain controlled. She received magnesium sulfate x 24 hours. Light lochia. Voiding without difficulty. Passing flatus. She had a headache that resolved with Tylenol. Denies fever/chills, chest pain and shortness of breath. Denies dizziness and lightheadedness. Admits to bilateral lower extremity swelling. No calf pain. Hospital Course Hospital Course Hospital Course: Ms Ana Prince is a 21-year-old at 37 weeks gestational age admitted to [facility] Labor and Delivery for scheduled primary secondary to preeclampsia and cephalopelvic disproportion. She underwent primary on 11. She delivered a baby girl weighing 7 lb 8 oz. APGARs 8, 9. EBL 600 mL. She was taking Labetalol 200 mg BID. Magnesium sulfate was started on POD # 0 but stopped after about 8 hours 44 minutes secondary to BP 100/60. POD # 1 she was doing okay. She was breast and formula feeding. Pain was controlled. She was tolerating regular diet. Voiding without difficulty and passing flatus. Blood pressures were labile with normotensive, mild range and occasional severe range. She was afebrile. POD # 2 she was doing well. Pain was controlled. She was tolerating regular diet. Light lochia. Voiding without difficulty. Passing flatus. Blood pressures continue to be labile. Mag sulfate was restarted for 24 hours. Heart was regular rate and rhythm. Lungs were clear to auscultation. Abdomen was soft, nontender, + BS. Remainder of vital signs were stable, afebrile. She had +3 bilateral lower extremity edema. No calf tenderness to palpation. She was taking Labetalol 200 mg q 12 hours. She had severe range BP and received 1 dose of IV Labetalol 20 mg. Oral Labetalol was increased to 200 mg q 8 hours. POD # 3 she continued to do well. She completed 24 hours of mag sulfate. Pain was controlled. Light lochia. She was voiding without difficulty. Passing flatus. Tolerating regular diet. She had a headache that resolved with Tylenol. Vital signs have been stable since IV Labetalol 20 mg and PO Labetalol at 2100. She is taking PO Labetalol 200 mg q 8 hours. She is breast and formula feeding. Mostly breast feeding and pumping. Heart was regular rate and rhythm. Lungs clear to auscultation. Abdomen soft and nontender, + BS. She had +3 bilateral lower extremity edema. No calf tenderness to palpation. Discharged home today with follow-up on 03/31/22, for BP check. Continue PO Labetalol 200 mg q 8 hours. She was instructed to check BP randomly at home once or twice per day and keep a log. 03/25/22: Hgb 10.6, Hct 32.5 03/26/22: Hgb 9.7, Hct 29.1 Exam Data for Last 24 hours Vital signs and Labs for Last 24 Hours: Temp Pulse Resp BP Pulse Ox 98.2 F 81 17 132/80 98 03/28/22 08:23 03/28/22 09:26 03/28/22 08:23 03/28/22 11:20 03/28/22 08:23 I & O for Last 24 hours: Intake & Output 03/25/22 03/26/22 03/27/22 03/28/22 23:59 23:59 23:59 22:59 Intake Total 800 / 800 460 / 460 Output Total 550 / 550 800 / 800 3500 / 3500 3700 / 3700 Balance 250 / 250 -340 / -340 -3500 / -3500 -3700 / -3700 Constitutional Constitutional: no acute distress and cooperative *Routine HEENT Exam Head: Present normocephalic Eye: Absent conjunctivae pink ENT: Present mucous membranes moist and dentition normal *Routine Neck Exam Neck: Present full ROM *Routine Respiratory Exam Respiratory: Present CTA bilaterally and normal respiratory effort *Routine Cardiovascular Exam Cardiovascular: Present RRR *Routine Abdominal Exam Abdominal: Present soft and normoactive bowel sounds; Absent tenderness or distended Comments: Uterine fundus firm and below umbilicus. Pfannenstiel incision clean/dry/intact, healing well. No erythema, drainage or dehiscence *Routine Rectal Exam Patien
== END 2022-03-28 14:40 | disposition home or self-care (01) | DRG 788 ==
PROVIDERS: Admitting Provider Nurse Practitioner Obstetrics & Gynecology; PCP Family Medicine; Visit Provider Nurse Practitioner Obstetrics & Gynecology
PROC: 10D00Z1 Extraction of Products of Conception, Low, Open Approach (ICD-10-PCS; CPT 59514; principal; 2022-03-25 07:30)
DX: O14.14 Severe pre-eclampsia complicating childbirth (principal); Z37.0 Single live birth; Z3A.37 37 weeks gestation of pregnancy; O64.8XX0 Obstructed labor due to other malposition and malpresentation, not applicable or unspecified; O10.02 Pre-existing essential hypertension complicating childbirth; Z98.84 Bariatric surgery status
CPT/HCPCS: 59514; 36415; 59025; 80048; 80305; 81001; 83735; 84450; 84460; 84550; 85014; 85018; 85025; 85378; 85384; 85610; 85730; 86850; 94761; C9290; C9803; G0283; J2405; J2505; U0003; U0005

== ENCOUNTER 2022-06-04 12:14 | Emergency (ER) | payer OTHER, SELFPAY ==
[2022-06-04 12:40] VITALS: BP 136/91; PULSE 90; RESP 18; TEMP 37.2; O2SAT 96; BMI 43.8
--- NOTE | 2022-06-04 12:50 | EXP.UTC ---
Discharge Plan Disposition Patient Disposition: Home, Self-Care Condition: Good Prescriptions Prescriptions: New amoxicillin [amoxicillin] 500 mg tablet 500 mg PO TID 10 Days Qty: 30 0RF No Action terconazole 0.8 % cream 1 appful vaginal HS 3 Days Qty: 20 0RF norethindrone (contraceptive) 0.35 mg tablet 0.35 mg PO DAILY Qty: 30 11RF fluoxetine [Prozac] 20 mg capsule 20 mg PO DAILY Qty: 30 5RF labetalol 200 mg tablet See Rx Instructions .ROUTE .COMPLEX Qty: 270 0RF Dose Instruction: TAKE 1 TABLET BY MOUTH EVERY 8 HOURS FOR HIGH BLOOD PRESSURE Rx Instructions: TAKE 1 TABLET BY MOUTH EVERY 8 HOURS FOR HIGH BLOOD PRESSURE Referrals Follow up/Referrals: Hai Dickey MD [Primary Care Provider] - See instructions Clinical Impressions Clinical Impression: Otitis media, Sinusitis Stand Alone Forms Stand Alone Forms: Work/School Release Discharge ED Provider: Heladio Romero [facility] HPI General Stated complaint: Sore throat, ear pain Time Seen by Provider: 06/04/22 12:50 History of Present Illness Provider Complaint: She states that for the past 4 days she has had ear pain, sinus congestion and a cough. Related Data Previous Rx's Medication Instructions Recorded labetalol 200 mg tablet See Rx Instructions .Route 03/29/22 .COMPLEX #270 tabs fluoxetine 20 mg capsule (Prozac) 20 mg PO DAILY #30 caps 03/31/22 terconazole 0.8 % vaginal cream 1 appful vaginal HS 3 days #20 04/12/22 grams norethindrone (contraceptive) 0.35 0.35 mg PO DAILY #30 tabs 05/03/22 mg tablet amoxicillin 500 mg tablet 500 mg PO TID 10 days #30 tabs 06/04/22 Allergies Allergy/AdvReac Type Severity Reaction Status Date / Time No Known Allergies Allergy Verified 05/03/22 14:07 [facility] Disclaimer: The information contained in this section may have been updated after the patient was seen, as this information can be updated by other users. Medical History Anxiety delivery delivered Depression pelvic disproportion antepartum Hypertension during Morbid obesity with body mass index (BMI) greater than or equal to 50 Preeclampsia Social History Smoking Status: Never smoker alcohol intake: never substance use type: denies use current occupational status: employed Travel in the last 8 weeks: None ROS Obtained: Yes All systems reviewed & no additional complaints except as documented Constitutional Constitutional: Reports chills and Reports fever(s) Eyes Eyes: Denies eye discharge ENT Ears, Nose, Mouth, and Throat: Reports as per HPI Cardiovascular Cardiovascular: Denies chest pain Respiratory Respiratory: Denies chest congestion and Reports cough Gastrointestinal Gastrointestingal: Reports nausea; Denies abdominal pain, constipation, cramping, diarrhea or vomiting Musculoskeletal Musculoskeletal: Denies arthralgias Integumentary/Breasts Skin/Breast: Denies rash Neurologic Neurologic: Denies paresthesias Physical Exam General General appearance: alert and in no apparent distress Head Head exam: atraumatic, normocephalic and normal inspection Eye Eye exam: Present normal appearance, PERRL and EOMI ENT ENT exam: Present normal exam, normal oropharynx, mucous membranes moist, TM's normal bilaterally and normal external ear exam Neck Neck exam: Present normal inspection, full ROM and trachea midline; Absent meningismus or lymphadenopathy Chest Chest inspection: Present normal inspection and symmetric chest wall rise; Absent tenderness Respiratory Respiratory exam: Present normal lung sounds bilaterally; Absent respiratory distress Cardiovascular Cardiovascular exam: Present regular rate and normal rhythm; Absent JVD Abdominal Exam Abdominal exam: Present soft and normal bowel sounds; Absent distention, tenderness or guarding Extremities Exam Extr
[2022-06-04 13:00] LABS: UTC Strep Screen (Rapid) Negative (Negative)
[2022-06-04 14:01] VITALS: BP 136/91; PULSE 90; RESP 18; TEMP 37.2; O2SAT 96
== END 2022-06-04 14:04 | disposition home or self-care (01) ==
PROVIDERS: Emergency Provider Nurse Practitioner Family; PCP Family Medicine
DX: H66.90 Otitis media, unspecified, unspecified ear (principal); J32.9 Chronic sinusitis, unspecified
CPT/HCPCS: 87880; 99212; 99213; G0463

== ENCOUNTER 2022-06-22 17:36 | Emergency (ER) | payer OTHER, SELFPAY ==
[2022-06-22 17:37] VITALS: BP 150/84; PULSE 84; RESP 16; TEMP 36.7; O2SAT 97; BMI 45.4
[2022-06-22 17:47] LABS: Microscopic, Urine URINE MICROSCOPIC (MICROSCOPIC)
[2022-06-22 18:03] LABS: Appearance,Urine CLEAR (Clear); Bilirubin,Urine Negative (Negative); Blood, Urine Negative (Negative); Color,Urine YELLOW (Yellow); Glucose,Urine (UA) Negative (Negative); Ketones,Urine Negative (Negative); Leukocyte Esterase,Urine Negative (Negative); Nitrate,Urine Negative (Negative); PH,Urine 6.5 (5.0-8.5); Protein,Urine Negative (Negative); Specific Gravity, Urine 1.025 (1.005-1.030)
[2022-06-22 18:08] LABS: Urine Pregnancy, HCG Qual. Negative (Negative)
[2022-06-22 18:16] LABS: Basophils # 0.1 K/mm3 (0-0.2); Basophils % 0.7 % (0.1-2.0); Eosinophils # 0.2 K/mm3 (0.0-0.4); Eosinophils % 1.7 % (0.1-12.0); Hematocrit 39.4 % (37.0-47.0); Hemoglobin 13.3 g/dL (12.2-16.2); Lymphocytes # 2.4 K/mm3 (0.7-4.5); Lymphocytes % 26.1 % (10-50); Mean Corpuscular HGB Conc 33.8 g/dL (31.8-35.4); Mean Corpuscular Hemoglobin 27.9 pg (27.0-31.2); Mean Corpuscular Volume 82.6 fl (81-99); Mean Platelet Volume 8.3 fl (7.4-10.4); Monocytes # 0.5 K/mm3 (0.1-1.0); Neutrophils # 6.1 K/mm3 (1.8-7.8); Neutrophils % 66.5 % (37.0-80.0); Platelet Count 428 K/mm3 (142-424); Red Blood Count 4.77 M/mm3 (4.20-5.40); Red Cell Distribution Width 13.4 % (11.5-17.5); White Blood Count 9.2 K/mm3 (4.8-10.8)
[2022-06-22 18:21] LABS: RBC,Urine Occasional #/hpf (0-3)
[2022-06-22 18:22] LABS: Bacteria,Urine 3+ /lpf
--- NOTE | 2022-06-22 18:24 | CT_ITS ---
PROCEDURE INFORMATION: Exam: CT Abdomen And Pelvis With Contrast Exam date and time: 06/22/2022 6:43 PM Age: 21 years old Clinical indication: Abdominal pain; Generalized; Additional info: Abdo pain TECHNIQUE: Imaging protocol: Computed tomography of the abdomen and pelvis with contrast. Radiation optimization: All CT scans at this facility use at least one of these dose optimization techniques: automated exposure control; mA and/or kV adjustment per patient size (includes targeted exams where dose is matched to clinical indication); or iterative reconstruction. Contrast material: ISOVUE; Contrast volume: 75 ml; Contrast route: IV; Other protocol: This patient has received 0 known CTs and 0 known cardiac nuclear medicine studies in the 12 months prior to the current study. COMPARISON: US OB FOLLOW UP 02/23/2022 2:33 PM FINDINGS: Lungs: There is a small partially calcified nodule compatible with granuloma in the right lung base. Liver: Normal. No mass. Gallbladder and bile ducts: A few small calcified gallstones are noted in the gallbladder. Pancreas: Normal. No ductal dilation. Spleen: Normal. No splenomegaly. Adrenal glands: Normal. No mass. Kidneys and ureters: Normal. No hydronephrosis. Stomach and bowel: Old postsurgical changes of the stomach noted. No obstruction. No mucosal thickening. Appendix: No evidence of appendicitis. Intraperitoneal space: Unremarkable. No free air. No significant fluid collection. Vasculature: Unremarkable. No abdominal aortic aneurysm. Lymph nodes: Unremarkable. No enlarged lymph nodes. Urinary bladder: Unremarkable as visualized. Reproductive: Unremarkable as visualized. Bones/joints: Unremarkable. No acute fracture. Soft tissues: Unremarkable. IMPRESSION: Cholelithiasis. Old postsurgical changes of the stomach. No definite acute abnormality evident in the abdomen or pelvis.
--- NOTE | 2022-06-22 18:27 | HMH.EDGENADL ---
Discharge Plan Disposition Patient Disposition: Home, Self-Care Condition: Good Prescriptions Prescriptions: New hydrocodone-acetaminophen 5-325 mg tablet 1 tab PO Q6H PRN (Reason: pain) Qty: 10 0RF No Action terconazole 0.8 % cream 1 appful vaginal HS 3 Days Qty: 20 0RF norethindrone (contraceptive) 0.35 mg tablet 0.35 mg PO DAILY Qty: 30 11RF fluoxetine [Prozac] 20 mg capsule 20 mg PO DAILY Qty: 30 5RF labetalol 200 mg tablet See Rx Instructions .ROUTE .COMPLEX Qty: 270 0RF Dose Instruction: TAKE 1 TABLET BY MOUTH EVERY 8 HOURS FOR HIGH BLOOD PRESSURE Rx Instructions: TAKE 1 TABLET BY MOUTH EVERY 8 HOURS FOR HIGH BLOOD PRESSURE metoclopramide HCl [Reglan] 5 mg tablet 5 mg PO QID 14 Days Qty: 56 0RF Rx Instructions: administer 30 minutes before meals amoxicillin [amoxicillin] 500 mg tablet 500 mg PO TID 10 Days Qty: 30 0RF Referrals Follow up/Referrals: Hai Dickey MD [Primary Care Provider] - See instructions José Manuel Gonzalez MD [Staff Physician] - See instructions Activity Restrictions/Add. Instructions Additional Instructions/Restrictions: Pump and dump breastmilk for 24 hours due to intravenous contrast. For future gallbladder attacks you may take Tylenol, ibuprofen, or [place] as prescribed. If you take [place] pain medication for future gallbladder attacks, pump and dump breastmilk for 12 hours. Low-fat diet. Follow-up with surgery, Dr. Gonzalez, call for appointment. Return emergency department if severe pain unresponsive to pain medication, fever, jaundice, or intractable vomiting. Clinical Impressions Clinical Impression: Cholelithiasis, Biliary colic Instructions Patient Instructions: DI for Gallstones Discharge ED Provider: Vega Gottlieb General Adult HPI General Chief complaint: Abdominal Pain Stated complaint: Abd pain Time Seen by Provider: 06/22/22 18:15 Mode of Arrival: Ambulatory Source of Information: Patient Limitations: No Limitations Description of Symptoms (Recalled from ER Triage Doc. by RN): Pt c/o epigastric pain, pt reports pain has been intermittent since being , is 12 weeks . Pt reports pain worse in the past 2 days. Pt reports some nausea, denies v/d or fever. PT denies urinary symptoms. History of Present Illness HPI narrative: Patient complains of epigastric pain. States she has been having episodes since she was 6 months gestation , she is now 12 weeks . She says that she had no testing done during for this pain, says she was told it was probably round ligament pain. She delivered by section. She has had a prior gastric sleeve operation. No other prior abdominal surgeries. Her current episode of pain started yesterday, eased overnight, but got worse again today after eating at 2 PM, 4 hours ago. Current pain is 5-6/10. She has been nauseated, but no vomiting, diarrhea, or fever. No urinary symptoms. Related Data Previous Rx's Medication Instructions Recorded labetalol 200 mg tablet See Rx Instructions .Route 03/29/22 .COMPLEX #270 tabs fluoxetine 20 mg capsule (Prozac) 20 mg PO DAILY #30 caps 03/31/22 terconazole 0.8 % vaginal cream 1 appful vaginal HS 3 days #20 04/12/22 grams norethindrone (contraceptive) 0.35 0.35 mg PO DAILY #30 tabs 05/03/22 mg tablet amoxicillin 500 mg tablet 500 mg PO TID 10 days #30 tabs 06/04/22 metoclopramide HCl 5 mg tablet 5 mg PO QID 14 days #56 tabs 06/17/22 (Reglan) hydrocodone 5 mg-acetaminophen 325 1 tab PO Q6H PRN pain #10 tabs 06/22/22 mg tablet Allergies Allergy/AdvReac Type Severity Reaction Status Date / Time No Known Allergies Allergy Verified 05/03/22 14:07 [facility] Disclaimer: The information contained in this section may have been updated after the patient was seen, as this information can be updated by other users. Medical History (Reviewed 06/04/22 @ 20:04 by Le Licea
[2022-06-22 18:30] LABS: Chloride 107 mmol/L (98-107); Sodium 142 mmol/L (136-145)
[2022-06-22 18:33] LABS: Alanine Aminotransferase 70 U/L (12-78); Albumin Level 4.6 g/dl (3.5-5.0); Albumin/Globulin Ratio 1.5 (1.1-1.8); Alkaline Phosphatase 113 U/L (38-126); Aspartate Amino Transferase 70 U/L (14-36); Bilirubin,Total 0.7 mg/dl (0.2-1.3); Blood Urea Nitrogen 12 mg/dl (7-17); Creatinine Clearance Estimated 108 mL/min (50-200); Estimated Glomerular Filt Rate 91 ml/min (>60); GFR (African American) 110 ML/MIN (>60); Lipase 96 U/L (23-300); Total Protein,Serum 7.6 g/dl (6.3-8.2)
[2022-06-22 18:34] LABS: Calcium 9.2 mg/dl (8.4-10.2); Glucose 106 mg/dl (74-100)
[2022-06-22 18:58] LABS: Carbon Dioxide 29 mmol/L (22.0-30.0)
[2022-06-22 19:41] VITALS: BP 137/74; PULSE 79; RESP 16; TEMP 36.7; O2SAT 97
== END 2022-06-22 19:47 | disposition home or self-care (01) ==
PROVIDERS: Emergency Provider Emergency Medicine; PCP Family Medicine
DX: K80.50 Calculus of bile duct without cholangitis or cholecystitis without obstruction (principal); R10.13 Epigastric pain; F41.9 Anxiety disorder, unspecified; Z98.84 Bariatric surgery status; F17.210 Nicotine dependence, cigarettes, uncomplicated
CPT/HCPCS: 74177; 80053; 81001; 81025; 83690; 85025; 87086; 96374; 99285; Q9967

== ENCOUNTER → 2023-02-10 08:34 | Outpatient (CLI) | payer OTHER, SELFPAY ==
[2023-02-10 09:41] LABS: HCG,Quantitative 1781 mIU/ml (0-5.42)
[2023-02-11 08:36] LABS: Progesterone 16.9 ng/mL (.)
== END ==
PROVIDERS: PCP Family Medicine; Visit Provider Obstetrics & Gynecology
DX: N92.6 Irregular menstruation, unspecified (principal)
CPT/HCPCS: 36415; 84144; 84702

== ENCOUNTER 2023-02-19 15:15 | Emergency (ER) | payer OTHER, SELFPAY ==
[2023-02-19 15:17] VITALS: BP 155/86; PULSE 82; RESP 18; TEMP 36.3; O2SAT 98; BMI 46.7
[2023-02-19 15:24] VITALS: BP 155/86; PULSE 82; O2SAT 98
[2023-02-19 15:31] VITALS: BP 128/73; PULSE 78; O2SAT 98
[2023-02-19 15:38] LABS: Microscopic, Urine URINE MICROSCOPIC (MICROSCOPIC)
[2023-02-19 15:39] LABS: Appearance,Urine CLEAR (Clear); Bilirubin,Urine Negative (Negative); Blood, Urine Negative (Negative); Color,Urine YELLOW (Yellow); Glucose,Urine (UA) Negative (Negative); Ketones,Urine Negative (Negative); Leukocyte Esterase,Urine Negative (Negative); Nitrate,Urine Negative (Negative); Protein,Urine Negative (Negative); Specific Gravity, Urine 1.025 (1.005-1.030)
[2023-02-19 16:00] LABS: Basophils # 0.1 K/mm3 (0-0.2); Basophils % 0.6 % (0.1-2.0); Eosinophils # 0.2 K/mm3 (0.0-0.4); Eosinophils % 1.3 % (0.1-12.0); Hematocrit 40.2 % (37.0-47.0); Hemoglobin 13.4 g/dL (12.2-16.2); Lymphocytes # 3.1 K/mm3 (0.7-4.5); Lymphocytes % 26.1 % (10-50); Mean Corpuscular HGB Conc 33.4 g/dL (31.8-35.4); Mean Corpuscular Hemoglobin 28.1 pg (27.0-31.2); Mean Corpuscular Volume 83.9 fl (81-99); Mean Platelet Volume 8.6 fl (7.4-10.4); Monocytes # 0.7 K/mm3 (0.1-1.0); Monocytes % 5.8 % (1.7-9.3); Neutrophils # 7.8 K/mm3 (1.8-7.8); Neutrophils % 66.2 % (37.0-80.0); Platelet Count 362 K/mm3 (142-424); Red Blood Count 4.79 M/mm3 (4.20-5.40); Red Cell Distribution Width 13.5 % (11.5-17.5); White Blood Count 11.8 K/mm3 (4.8-10.8)
[2023-02-19 16:05] LABS: Alanine Aminotransferase 21 U/L (12-78); Albumin Level 4.2 g/dl (3.5-5.0); Albumin/Globulin Ratio 1.6 (1.1-1.8); Alkaline Phosphatase 55 U/L (38-126); Anion Gap 12.9 mEq/L (5-15); Aspartate Amino Transferase 22 U/L (14-36); Bilirubin,Total 0.6 mg/dl (0.2-1.3); Blood Urea Nitrogen 10 mg/dl (7-17); Calcium 8.7 mg/dl (8.4-10.2); Carbon Dioxide 24 mmol/L (22.0-30.0); Chloride 104 mmol/L (98-107); Creatinine Clearance Estimated 118 mL/min (50-200); Estimated Glomerular Filt Rate 105 ml/min (>60); GFR (African American) 127 ML/MIN (>60); Globulin 2.7 g/dL (1.3-3.2); Glucose 101 mg/dl (74-100); Lipase 127 U/L (23-300); Potassium 3.9 mmoL/L (3.5-5.1); Sodium 137 mmol/L (136-145); Total Protein,Serum 6.9 g/dl (6.3-8.2)
[2023-02-19 16:06] LABS: Lactic Acid 0.9 mmol/L (0.7-2.1)
[2023-02-19 16:14] LABS: Bacteria,Urine 1+ /lpf
[2023-02-19 16:15] LABS: Yeast,Urine Occasional /lpf
--- NOTE | 2023-02-19 16:17 | HMH.EDGENADL ---
Discharge Plan Disposition Chief Complaint: Abdominal Pain Prescriptions Prescriptions: No Action terconazole 0.8 % cream 1 appful vaginal HS 3 Days Qty: 20 0RF norethindrone (contraceptive) 0.35 mg tablet 0.35 mg PO DAILY Qty: 30 11RF fluoxetine [Prozac] 20 mg capsule 20 mg PO DAILY Qty: 30 5RF labetalol 200 mg tablet See Rx Instructions .ROUTE .COMPLEX Qty: 270 0RF Dose Instruction: TAKE 1 TABLET BY MOUTH EVERY 8 HOURS FOR HIGH BLOOD PRESSURE Rx Instructions: TAKE 1 TABLET BY MOUTH EVERY 8 HOURS FOR HIGH BLOOD PRESSURE metoclopramide HCl [Reglan] 5 mg tablet 5 mg PO QID 14 Days Qty: 56 0RF Rx Instructions: administer 30 minutes before meals amoxicillin [amoxicillin] 500 mg tablet 500 mg PO TID 10 Days Qty: 30 0RF hydrocodone-acetaminophen 5-325 mg tablet 1 tab PO Q6H PRN (Reason: pain) Qty: 10 0RF Referrals Follow up/Referrals: Hai Dickey MD [Primary Care Provider] - See instructions Activity Restrictions/Add. Instructions Additional Instructions/Restrictions: Call your family doctor to establish care for this visit to the emergency department and schedule follow-up within 48 hours to ensure improvement. If you have any worsening of your condition or any other concerning signs or symptoms, return to the emergency department or your primary care doctor for further evaluation. Clinical Impressions Clinical Impression: Biliary colic Instructions Patient Instructions: DI for Acute Abdominal Pain Discharge ED Provider: Naeem Alvarado General Adult HPI General Chief complaint: Abdominal Pain Stated complaint: Lower Right side of stomach Time Seen by Provider: 02/19/23 15:22 Mode of Arrival: Ambulatory Source of Information: Patient Limitations: No Limitations Description of Symptoms (Recalled from ER Triage Doc. by RN): Patient reports right upper quadarant pain with emesis that started 30 minutes ago. Patient reports finding out that she is approx 2 weeks ago. History of Present Illness HPI narrative: 22-year-old female with history of biliary colic presenting with abdominal pain. Patient states that about 45 minutes prior to arrival she was sitting down on the couch when she had acute onset right upper quadrant abdominal pain. Did not radiate, 7-8 in intensity, stabbing. Associated with nonbloody, nonbilious vomiting. No fevers or chills, diarrhea or constipation. Patient does not have any overlying skin changes. Think she is due to recent testing. Last menstrual period was the beginning of December. Notably, patient was supposed to have outpatient follow-up with general surgery here, but failed to follow-up prior to becoming again. Related Data Previous Rx's Medication Instructions Recorded labetalol 200 mg tablet See Rx Instructions .Route 03/29/22 .COMPLEX #270 tabs fluoxetine 20 mg capsule (Prozac) 20 mg PO DAILY #30 caps 03/31/22 terconazole 0.8 % vaginal cream 1 appful vaginal HS 3 days #20 04/12/22 grams norethindrone (contraceptive) 0.35 0.35 mg PO DAILY #30 tabs 05/03/22 mg tablet amoxicillin 500 mg tablet 500 mg PO TID 10 days #30 tabs 06/04/22 metoclopramide HCl 5 mg tablet 5 mg PO QID 14 days #56 tabs 06/17/22 (Reglan) hydrocodone 5 mg-acetaminophen 325 1 tab PO Q6H PRN pain #10 tabs 06/22/22 mg tablet Allergies Allergy/AdvReac Type Severity Reaction Status Date / Time No Known Allergies Allergy Verified 05/03/22 14:07 [facility] Disclaimer: The information contained in this section may have been updated after the patient was seen, as this information can be updated by other users. Medical History Anxiety delivery delivered Depression pelvic disproportion antepartum Hypertension during Morbid obesity with body mass index (BMI) greater than or equal to 50 Preeclampsia Social History (Reviewed 06/04/22 @ 20
[2023-02-19 16:56] LABS: HCG,Quantitative 26332 mIU/ml (0-5.42)
--- NOTE | 2023-02-19 17:06 | US_ITS ---
PROCEDURE INFORMATION: Exam: US Abdomen Complete Exam date and time: 02/19/2023 5:32 PM Age: 22 years old Clinical indication: Abdominal pain; ; Additional info: Iup R. O and ruq pain stabbing, R. O aki TECHNIQUE: Imaging protocol: Real-time ultrasound of the abdomen with image documentation. Complete exam. Total images: 178 COMPARISON: CT ABDOMEN PELVIS W CON 06/22/2022 6:43 PM FINDINGS: Liver: Mild hepatic parenchymal coarsening implying steatosis. Normal liver size and contour. No mass. Gallbladder: Mild gallbladder wall thickening. Trace pericholecystic edema. Tiny layering gallstones. Sonographic Crystal sign was not documented by the network security analyst. Biliary ducts: Normal common bile duct at 2.3 mm. No intrahepatic bile duct dilatation. Pancreas: Visualized pancreas is unremarkable. Pancreatic tail is obscured by bowel. Right kidney: Normal right kidney measuring 11.3 cm. Left kidney: Normal left kidney measuring 10.5 cm. Spleen: Normal spleen measuring 12.7 cm. Aorta: No abdominal aortic aneurysm. Inferior vena cava: Unremarkable intrahepatic portion. Portal venous: Normal main portal vein at 7 mm. Proper directional flow in the main portal vein. IMPRESSION: 1. Cholelithiasis with gallbladder wall thickening and trace pericholecystic fluid concerning for acute calculus cholecystitis. 2. Please note, presence or absence of sonographic Crystal sign was not documented by the network security analyst. 3. Recommend follow-up hepatobiliary scintigraphy to evaluate patency of the cystic duct.
--- NOTE | 2023-02-19 17:07 | PC.NURSE ---
u/s called in at this time
--- NOTE | 2023-02-19 17:34 | PC.NURSE ---
US tech at bedside to transport patient
[2023-02-19 18:55] VITALS: BP 128/70; PULSE 87; RESP 18; TEMP 36.7; O2SAT 98
== END 2023-02-19 18:57 | disposition home or self-care (01) ==
LOC: ER 15:53
PROVIDERS: Emergency Provider Emergency Medicine; PCP Family Medicine
DX: K80.50 Calculus of bile duct without cholangitis or cholecystitis without obstruction (principal); F41.9 Anxiety disorder, unspecified; F32.A Depression, unspecified; F17.200 Nicotine dependence, unspecified, uncomplicated; O26.619 Liver and biliary tract disorders in pregnancy, unspecified trimester; O99.340 Other mental disorders complicating pregnancy, unspecified trimester; E66.01 Morbid (severe) obesity due to excess calories; O99.210 Obesity complicating pregnancy, unspecified trimester; O99.330 Smoking (tobacco) complicating pregnancy, unspecified trimester
CPT/HCPCS: 76700; 80053; 81001; 83605; 83690; 84702; 85025; 96374; 96375; 99285; J0131

== ENCOUNTER → 2023-03-04 15:52 | Outpatient (CLI) | payer OTHER, SELFPAY | PROVIDERS: PCP Family Medicine; Visit Provider Obstetrics & Gynecology | DX: Z34.91 Encounter for supervision of normal pregnancy, unspecified, first trimester (principal); Z3A.08 8 weeks gestation of pregnancy; B95.2 Enterococcus as the cause of diseases classified elsewhere | CPT/HCPCS: 87086 ==

== ENCOUNTER → 2023-03-28 09:10 | Outpatient (CLI) | payer OTHER, SELFPAY ==
[2023-03-28 10:15] LABS: Basophils % 0.3 % (0.1-2.0); Eosinophils # 0.1 K/mm3 (0.0-0.4); Eosinophils % 1.4 % (0.1-12.0); Hematocrit 36.9 % (37.0-47.0); Hemoglobin 13.5 g/dL (12.2-16.2); Lymphocytes # 1.6 K/mm3 (0.7-4.5); Lymphocytes % 20.1 % (10-50); Mean Corpuscular HGB Conc 36.7 g/dL (31.8-35.4); Mean Corpuscular Hemoglobin 31.3 pg (27.0-31.2); Mean Corpuscular Volume 85.3 fl (81-99); Mean Platelet Volume 7.9 fl (7.4-10.4); Monocytes # 0.6 K/mm3 (0.1-1.0); Monocytes % 6.8 % (1.7-9.3); Neutrophils # 5.8 K/mm3 (1.8-7.8); Neutrophils % 71.5 % (37.0-80.0); Platelet Count 261 K/mm3 (142-424); Red Blood Count 4.33 M/mm3 (4.20-5.40); Red Cell Distribution Width 13.7 % (11.5-17.5); White Blood Count 8.1 K/mm3 (4.8-10.8)
[2023-03-29 10:00] LABS: HIV Screen 4th Generation wRfx Non Reactive (Non Reactive)
[2023-03-31 10:36] LABS: Hepatitis B Surface Antigen Negative; Hepatitis C Antibody Non Reactive; Rapid Plasma Reagin Ab Titer Non Reactive
[2023-03-31 10:38] LABS: Rubella Antibodies, IgG 0.91
== END ==
LOC: LAB 09:11
PROVIDERS: PCP Family Medicine; Visit Provider Obstetrics & Gynecology
DX: Z34.91 Encounter for supervision of normal pregnancy, unspecified, first trimester (principal); Z3A.11 11 weeks gestation of pregnancy
CPT/HCPCS: 36415; 85025; 86593; 86703; 86762; 86850; 87340; 87380; G0432

== ENCOUNTER 2023-05-30 12:49 | Outpatient (CLI) | payer OTHER, SELFPAY ==
--- NOTE | 2023-05-30 12:49 | US_ITS ---
PROCEDURE: US OB /MATERNAL DETAIL CLINICAL INDICATION: 20 week anatomy scan COMPARISON: No exams were available for comparison FINDINGS: Transabdominal sonographic images of the pelvis were obtained. From her established due date she is 20 weeks 3 days. Single viable intrauterine gestation. Initially breech then cephalic position. Placenta: Anteriorplacenta grade 1. There is an average amount of fluid. The cervix appears satisfactory. Closed and measuring 4.7 cm in length. Complete survey performed and was unremarkable on the submitted images as in PACS. No discrete anomalies identified on survey imaging by technologist. Active fetus. Three-vessel cord with satisfactory umbilical cord insertion. 4- chamber heart noted. Situs, aortic arch, LVOT, RVOT, three-vessel view appear normal. Survey of brain & ventricles Unremarkable. Cerebellum, thalamus, choroid plexus, cisterna magna appear normal. Face and neck survey unremarkable. Profile, nasion, lips and nose appeared normal. Diaphragm and chest views unremarkable. Abdomen: Both kidneys noted and unremarkable. Stomach and bladder noted and satisfactory. Spine: Survey of the spine satisfactory with no anomalies identified nor imaged. Cervical, thoracic, lower spine appear normal. Both arms and legs noted. Amniotic Fluid: Adequate. MVP 3.93 cm. Measurements: Average ultrasound age 20weeks 2days. Estimated due date by ultrasound age 0510/15/2023. Estimated weight 350g BPD = 19weeks 6days HC = 20weeks 2days AC = 20weeks 2days FL = 20weeks 5days Growth Percentile= 42 Heart Rate = 143bpm Cerebellum = 20weeks 1day Humerus = 20weeks 2days HC/AC is 1.18 FL/BPD is 0.74 FL/AC is 0.23 IMPRESSION: 1. Viable fetus in the cephalic presentation with an anterior placenta grade 1. 2. The fluid is within normal limits. 3. Anatomical scan appears normal. 4. biometry is consistent with a dates. Dictated by: Henrry Garcia MD 05/30/2023 15:08 Henrry Garcia MD in [facility] 05/30/2023 15:08
== END 2023-05-30 23:59 ==
LOC: RAD 12:49
PROVIDERS: PCP Family Medicine; Visit Provider Obstetrics & Gynecology
DX: Z34.92 Encounter for supervision of normal pregnancy, unspecified, second trimester (principal); Z3A.20 20 weeks gestation of pregnancy
CPT/HCPCS: 76811

== ENCOUNTER 2023-07-06 11:35 | Outpatient (CLI) | payer OTHER, SELFPAY ==
[2023-07-06 12:00] VITALS: BP 135/70; PULSE 100; RESP 16; TEMP 36.7; O2SAT 97; BMI 48.5
[2023-07-06 12:14] VITALS: BMI 50.8
[2023-07-06 12:18] LABS: Microscopic, Urine URINE MICROSCOPIC (MICROSCOPIC)
[2023-07-06 12:25] LABS: Appearance,Urine CLEAR (Clear); Bilirubin,Urine Negative (Negative); Blood, Urine Negative (Negative); Color,Urine YELLOW (Yellow); Glucose,Urine (UA) Negative (Negative); Ketones,Urine Negative (Negative); Leukocyte Esterase,Urine 2+ (Negative); Nitrate,Urine Negative (Negative); Protein,Urine Negative (Negative); Urobilinogen,Urine 0.2 EU/dl (0.2)
[2023-07-06 12:43] LABS: Bacteria,Urine 4+ /lpf
[2023-07-06 12:44] LABS: Amphetamine/Metha Screen,Urine Negative ng/ml (<1000)
[2023-07-06 12:45] LABS: Barbiturates Screen,Urine Negative ng/ml (<200)
[2023-07-06 12:46] LABS: Phencyclidine Screen,Urine Negative ng/ml (<25)
[2023-07-06 12:47] LABS: Opiate Screen,Urine Negative ng/ml (<300)
[2023-07-06 12:48] LABS: Cannabinoid Screen,Urine Negative ng/ml (<50); Cocaine Screen,Urine Negative ng/ml (<300)
[2023-07-06 12:52] LABS: Benzodiazepines Screen,Urine Negative ng/ml (<200)
[2023-07-06 12:54] LABS: Methadone Screen,Urine Negative ng/ml (<300)
[2023-07-06] MEDS: LACTATED RINGERS 1000ML 1,000 ML 999 ML IV (13:29)
[2023-07-06] MEDS: CEFAZOLIN SODIUM 2 GM in 0.9 % SODIUM CHLORIDE 100 ML IV (13:29)
== END 2023-07-06 15:27 | disposition home or self-care (01) ==
LOC: OBOUT 11:37 → OB 11:37
PROVIDERS: Nurse Practitioner Obstetrics & Gynecology; PCP Family Medicine; Visit Provider Obstetrics & Gynecology
DX: O26.892 Other specified pregnancy related conditions, second trimester (principal); Z3A.25 25 weeks gestation of pregnancy
CPT/HCPCS: 59025; 80307; 81001; 87086; 96365; 96366; 96367; G0463

== ENCOUNTER 2023-07-15 08:33 | Outpatient (CLI) | payer OTHER, SELFPAY ==
[2023-07-15 09:02] LABS: Glucose,Fasting 88 mg/dl (74-100)
[2023-07-15 12:28] LABS: Glucose 1 Hour 119 mg/dL (74-100)
== END 2023-07-15 23:59 ==
LOC: LAB 08:33
PROVIDERS: PCP Family Medicine; Visit Provider Obstetrics & Gynecology
DX: O26.892 Other specified pregnancy related conditions, second trimester (principal); Z3A.27 27 weeks gestation of pregnancy; Z79.899 Other long term (current) drug therapy
CPT/HCPCS: 36415; 82951

== ENCOUNTER 2023-08-11 11:04 | Outpatient (CLI) | payer OTHER, SELFPAY ==
[2023-08-11 14:07] LABS: Fetal Membrane Rupture (Rapid) Negative (Negative)
== END 2023-08-11 23:59 ==
LOC: LAB.DROPOF 08-16 11:05
PROVIDERS: PCP Obstetrics & Gynecology; Visit Provider Obstetrics & Gynecology
DX: O42.90 Premature rupture of membranes, unspecified as to length of time between rupture and onset of labor, unspecified weeks of gestation (principal); Z3A.30 30 weeks gestation of pregnancy; O26.893 Other specified pregnancy related conditions, third trimester
CPT/HCPCS: 84112

== ENCOUNTER 2023-09-02 13:51 | Outpatient (CLI) | payer OTHER, SELFPAY ==
[2023-09-02 13:58] VITALS: BMI 37.9
[2023-09-02 14:20] LABS: Microscopic, Urine URINE MICROSCOPIC (MICROSCOPIC)
[2023-09-02 14:29] VITALS: BP 123/81; PULSE 118; RESP 19; TEMP 37.1; O2SAT 99; BMI 54.1
[2023-09-02 14:45] LABS: Appearance,Urine CLEAR (Clear); Bilirubin,Urine Negative (Negative); Blood, Urine Negative (Negative); Color,Urine YELLOW (Yellow); Glucose,Urine (UA) Negative (Negative); Ketones,Urine 2+ (Negative); Leukocyte Esterase,Urine TRACE (Negative); Nitrate,Urine Negative (Negative); PH,Urine 6.5 (5.0-8.5); Protein,Urine Negative (Negative); Specific Gravity, Urine >= 1.030 (1.005-1.030)
--- NOTE | 2023-09-02 14:55 | US_ITS ---
PROCEDURE INFORMATION: Exam: US Biophysical Profile Without Non-Stress Test Exam date and time: 09/02/2023 4:17 PM Age: 22 years old Clinical indication: Other: Decreased movement; ; Additional info: Decreased movment/spotting TECHNIQUE: Imaging protocol: US biophysical profile without non-stress testing. COMPARISON: US OB /MATERNAL DETAIL 05/30/2023 1:00 PM FINDINGS: heart rate: 128 bpm Amniotic fluid index: SARA is 13.01 cm. BIOPHYSICAL PROFILE: breathing movement (BPP): 2 /2 body movement (BPP): 2 /2 tone (BPP): 2 /2 Amniotic fluid (BPP): 2 /2 Biophysical profile score (BPP): 8 /8 MATERNAL ANATOMY: Cervix: Cervical length measures 3.41 cm. IMPRESSION: Normal biophysical profile score, /8.
[2023-09-02 14:57] LABS: Barbiturates Screen,Urine Negative ng/ml (<200)
[2023-09-02 14:58] LABS: Amphetamine/Metha Screen,Urine Negative ng/ml (<1000); Benzodiazepines Screen,Urine Negative ng/ml (<200)
[2023-09-02 14:59] LABS: Methadone Screen,Urine Negative ng/ml (<300); WBC,Urine Occasional #/hpf (0-3)
[2023-09-02 15:00] LABS: Cannabinoid Screen,Urine Negative ng/ml (<50); Cocaine Screen,Urine Negative ng/ml (<300)
[2023-09-02 15:01] LABS: Opiate Screen,Urine Negative ng/ml (<300)
[2023-09-02 15:02] LABS: Phencyclidine Screen,Urine Negative ng/ml (<25)
== END 2023-09-02 15:49 | disposition home or self-care (01) ==
LOC: OBOUT 13:52 → OB 13:52
PROVIDERS: PCP Family Medicine; Visit Provider Obstetrics & Gynecology
DX: O26.893 Other specified pregnancy related conditions, third trimester (principal); Z3A.33 33 weeks gestation of pregnancy
CPT/HCPCS: 76819; 80307; 81001

== ENCOUNTER 2023-09-09 15:00 | Outpatient (CLI) | payer OTHER, SELFPAY ==
--- NOTE | 2023-09-09 15:01 | US_ITS ---
PROCEDURE: US OB BIOPHYSICAL PROFILE CLINICAL INDICATION: lga COMPARISON: No exams were available for comparison FINDINGS: Transabdominal sonographic images of the uterus were obtained. From her established due date she is 35weeks 0 days. The following parameters are obtained: Viable Fetus in the cephalic presentation with and anterior placenta grade 1-2. Average ultrasound age is 35weeks 0 days Estimated weight 2,439g, 5 lb 6 oz. The cervix measures 3.9 cm. Measurements: heart Rate = 124bpm HC = 36weeks 3days, 50 percentile BPD = 35 weeks 4 days, 67 percentile AC = 34weeks 5days, 47 percentile FL = 33weeks 1day, 5 percentile HC/AC is 1.05 FL/BPD is 0.73 FL/AC is 0.21 32 percentile Amniotic fluid index: 13.95cm, MVP 5.57 cm. Qualitative AFV:2 Breathing movements: 2 Gross Body Movements: 2 Tone: 2 Biophysical profile score: 8 No obvious anomalies evident.Kidneys, profile, nasion, four-chamber heart, three-vessel cord appear normal. IMPRESSION: 1. Viable fetus in the cephalic presentation with an anterior placenta grade 1-2. 2. The fluid is within normal limits with an amniotic fluid index of 13.95 cm, MVP 5.57 cm. 3. Biophysical profile is 8/8 with good breathing movement and movement seen. 4. There has been good interval growth with the fetus currently average size at the 32nd percentile. 5. Limited anatomical scan appears normal. Dictated by: Henrry Garcia MD 09/10/2023 08:38 Henrry Garcia MD in [facility] 09/10/2023 08:38
== END 2023-09-09 23:59 | disposition home or self-care (01) ==
LOC: RAD 15:01
PROVIDERS: PCP Family Medicine; Visit Provider Obstetrics & Gynecology
DX: O36.63X0 Maternal care for excessive fetal growth, third trimester, not applicable or unspecified (principal); Z3A.34 34 weeks gestation of pregnancy
CPT/HCPCS: 76816; 76819

== ENCOUNTER 2023-09-23 09:46 | Outpatient (CLI) | payer OTHER, SELFPAY ==
[2023-09-23 09:52] VITALS: BMI 54.2
[2023-09-23 10:00] VITALS: BP 138/79; PULSE 92; RESP 18; TEMP 37.1; O2SAT 99; BMI 54.2
[2023-09-23 10:08] LABS: Microscopic, Urine URINE MICROSCOPIC (MICROSCOPIC)
[2023-09-23 10:24] LABS: Barbiturates Screen,Urine Negative ng/ml (<200); Benzodiazepines Screen,Urine Negative ng/ml (<200)
[2023-09-23 10:25] LABS: Amphetamine/Metha Screen,Urine Negative ng/ml (<1000)
[2023-09-23 10:26] LABS: Appearance,Urine CLEAR (Clear); Blood, Urine Negative (Negative); Color,Urine YELLOW (Yellow); Glucose,Urine (UA) Negative (Negative); Ketones,Urine Negative (Negative); Leukocyte Esterase,Urine 2+ (Negative); Nitrate,Urine Negative (Negative); PH,Urine 6.5 (5.0-8.5); Protein,Urine TRACE (Negative); Specific Gravity, Urine 1.025 (1.005-1.030)
[2023-09-23 10:35] LABS: Cannabinoid Screen,Urine Negative ng/ml (<50)
[2023-09-23 10:36] LABS: Cocaine Screen,Urine Negative ng/ml (<300); Methadone Screen,Urine Negative ng/ml (<300)
[2023-09-23 10:37] LABS: Opiate Screen,Urine Negative ng/ml (<300); Phencyclidine Screen,Urine Negative ng/ml (<25)
[2023-09-23 10:38] LABS: Bilirubin,Urine 1+ (Negative)
[2023-09-23 10:39] LABS: Bacteria,Urine 1+ /lpf
== END 2023-09-23 11:10 | disposition home or self-care (01) ==
LOC: OBOUT 09:49 → OB 09:49
PROVIDERS: PCP Family Medicine; Visit Provider Obstetrics & Gynecology
DX: O60.03 Preterm labor without delivery, third trimester (principal); Z3A.37 37 weeks gestation of pregnancy
CPT/HCPCS: 80307; 81001; 87086; G0463

== ENCOUNTER 2023-09-27 11:32 | Outpatient (CLI) | payer OTHER, SELFPAY ==
[2023-09-27 12:13] LABS: Basophils % 0.4 % (0.1-2.0); Eosinophils # 0.1 K/mm3 (0.0-0.4); Eosinophils % 0.5 % (0.1-12.0); Hematocrit 32.3 % (37.0-47.0); Hemoglobin 10.5 g/dL (12.2-16.2); Lymphocytes # 1.7 K/mm3 (0.7-4.5); Lymphocytes % 16.3 % (10-50); Mean Corpuscular HGB Conc 32.6 g/dL (31.8-35.4); Mean Corpuscular Hemoglobin 26.5 pg (27.0-31.2); Mean Corpuscular Volume 81.2 fl (81-99); Mean Platelet Volume 9.9 fl (7.4-10.4); Monocytes # 0.7 K/mm3 (0.1-1.0); Monocytes % 6.2 % (1.7-9.3); Neutrophils % 76.6 % (37.0-80.0); Platelet Count 320 K/mm3 (142-424); Red Blood Count 3.97 M/mm3 (4.20-5.40); Red Cell Distribution Width 14.6 % (11.5-17.5); White Blood Count 10.4 K/mm3 (4.8-10.8)
[2023-09-27 12:37] LABS: Chloride 107 mmol/L (98-107)
[2023-09-27 12:38] LABS: Potassium 4.1 mmoL/L (3.5-5.1); Sodium 133 mmol/L (136-145)
[2023-09-27 12:40] LABS: Alanine Aminotransferase 16 U/L (12-78); Albumin Level 3.4 g/dl (3.5-5.0); Albumin/Globulin Ratio 1.4 (1.1-1.8); Alkaline Phosphatase 127 U/L (38-126); Aspartate Amino Transferase 23 U/L (14-36); Bilirubin,Total 0.7 mg/dl (0.2-1.3); Blood Urea Nitrogen 7 mg/dl (7-17); Estimated Glomerular Filt Rate 125 ml/min (>60); GFR (African American) 151 ML/MIN (>60); Globulin 2.5 g/dL (1.3-3.2); Total Protein,Serum 5.9 g/dl (6.3-8.2)
[2023-09-27 12:41] LABS: Anion Gap 10.1 mEq/L (5-15); Calcium 9.3 mg/dl (8.4-10.2); Carbon Dioxide 20 mmol/L (22.0-30.0); Glucose 76 mg/dl (74-100)
[2023-09-27 13:58] LABS: Uric Acid 5.4 mg/dl (2.5-6.2)
== END 2023-09-27 23:59 | disposition home or self-care (01) ==
LOC: LAB 11:33
PROVIDERS: PCP Family Medicine; Visit Provider Obstetrics & Gynecology
DX: O26.893 Other specified pregnancy related conditions, third trimester (principal); Z3A.37 37 weeks gestation of pregnancy
CPT/HCPCS: 36415; 80053; 84550; 85025

== ENCOUNTER 2023-10-03 16:50 | Outpatient (CLI) | payer OTHER, SELFPAY | END 2023-10-03 23:59 | disposition home or self-care (01) | LOC: LAB.DROPOF 16:51 | PROVIDERS: PCP Nurse Practitioner Obstetrics & Gynecology; Visit Provider Nurse Practitioner Obstetrics & Gynecology | DX: O26.893 Other specified pregnancy related conditions, third trimester (principal); Z3A.38 38 weeks gestation of pregnancy; B95.1 Streptococcus, group B, as the cause of diseases classified elsewhere | CPT/HCPCS: 86403 ==

== ENCOUNTER 2023-10-05 07:38 | Outpatient (CLI) | payer OTHER, SELFPAY ==
[2023-10-05 05:49] VITALS: BP 136/88; PULSE 87; RESP 18; TEMP 36.8; O2SAT 98
[2023-10-05 05:50] VITALS: BMI 55.7
[2023-10-05 05:54] LABS: Microscopic, Urine URINE MICROSCOPIC (MICROSCOPIC)
[2023-10-05 05:55] VITALS: BP 136/88; PULSE 87; RESP 18; TEMP 36.8; O2SAT 98; BMI 55.7
[2023-10-05 05:55] LABS: Appearance,Urine CLEAR (Clear); Bilirubin,Urine Negative (Negative); Blood, Urine Negative (Negative); Color,Urine YELLOW (Yellow); Glucose,Urine (UA) Negative (Negative); Ketones,Urine Negative (Negative); Leukocyte Esterase,Urine 2+ (Negative); Nitrate,Urine Negative (Negative); Protein,Urine TRACE (Negative); Specific Gravity, Urine >= 1.030 (1.005-1.030)
[2023-10-05 06:07] LABS: Amphetamine/Metha Screen,Urine Negative ng/ml (<1000); Benzodiazepines Screen,Urine Negative ng/ml (<200)
[2023-10-05 06:08] LABS: Barbiturates Screen,Urine Negative ng/ml (<200); Cannabinoid Screen,Urine Negative ng/ml (<50)
[2023-10-05 06:09] LABS: Cocaine Screen,Urine Negative ng/ml (<300)
[2023-10-05 06:10] LABS: Methadone Screen,Urine Negative ng/ml (<300); Opiate Screen,Urine Negative ng/ml (<300)
[2023-10-05 06:11] LABS: Phencyclidine Screen,Urine Negative ng/ml (<25)
[2023-10-05] MEDS: LACTATED RINGERS 1000ML 1,000 ML 999 ML IV (06:33)
[2023-10-05] MEDS: BUTORPHANOL TARTRATE 2 MG/ML VIAL 1 MG IV (06:46)
[2023-10-05 07:03] LABS: Bacteria,Urine 2+ /lpf
[2023-10-05] MEDS: OXYCODONE 5MG IMMEDIATE RELEASE TABLET 5 MG PO (07:35)
--- NOTE | 2023-10-05 07:45 | P.CONPHA_ITS ---
Pharmacy Intervention Comments: MEDICATION RECONCILIATION COMPLETED ON PATIENT USING EXTERNAL FILL HISTORY FROM PHARMACY AND LIST FROM MANAGER PROGRESSIVE CARE OFFICE. -CHRIS RENNERD
--- NOTE | 2023-10-05 07:45 | HMH.PHAINT1 ---
Pharmacy Intervention Comments: MEDICATION RECONCILIATION COMPLETED ON PATIENT USING EXTERNAL FILL HISTORY FROM PHARMACY AND LIST FROM [employer] SENIOR DEVELOPER OFFICE. -CHRIS RENNERD
== END 2023-10-05 08:57 | disposition home or self-care (01) ==
LOC: OB 08:28 → OBOUT 09:15 → OB 09:16
PROVIDERS: PCP Family Medicine; Visit Provider Nurse Practitioner Obstetrics & Gynecology
DX: O26.893 Other specified pregnancy related conditions, third trimester (principal); Z3A.39 39 weeks gestation of pregnancy
CPT/HCPCS: 80307; 81001; 87086; G0463

== ENCOUNTER 2023-10-06 23:06 | Inpatient (IN) | payer OTHER, SELFPAY ==
[2023-10-06 22:12] VITALS: BP 136/80; PULSE 83; RESP 18; TEMP 36.7; O2SAT 100; BMI 54.8
[2023-10-06 22:59] VITALS: BMI 53.2
[2023-10-06] MEDS: TERBUTALINE SULFATE 1MG/ML VIAL 0.25 MG SQ (23:00)
[2023-10-06] MEDS: LACTATED RINGERS 1000ML 1,000 ML 999 ML IV (23:20)
[2023-10-06] MEDS: OXYCODONE 5MG IMMEDIATE RELEASE TABLET 5 MG PO (23:44)
[2023-10-06 23:47] LABS: Basophils # 0.1 K/mm3 (0-0.2); Basophils % 0.5 % (0.1-2.0); Eosinophils # 0.2 K/mm3 (0.0-0.4); Eosinophils % 1.1 % (0.1-12.0); Hematocrit 32.5 % (37.0-47.0); Hemoglobin 10.5 g/dL (12.2-16.2); Lymphocytes # 3.1 K/mm3 (0.7-4.5); Lymphocytes % 22.7 % (10-50); Mean Corpuscular HGB Conc 32.2 g/dL (31.8-35.4); Mean Corpuscular Hemoglobin 26.5 pg (27.0-31.2); Mean Corpuscular Volume 82.2 fl (81-99); Mean Platelet Volume 10.9 fl (7.4-10.4); Monocytes # 0.8 K/mm3 (0.1-1.0); Neutrophils # 9.5 K/mm3 (1.8-7.8); Neutrophils % 69.9 % (37.0-80.0); Platelet Count 308 K/mm3 (142-424); Red Blood Count 3.96 M/mm3 (4.20-5.40); Red Cell Distribution Width 15.1 % (11.5-17.5); White Blood Count 13.6 K/mm3 (4.8-10.8)
[2023-10-06 23:54] LABS: Chloride 105 mmol/L (98-107); Sodium 133 mmol/L (136-145)
[2023-10-06 23:55] LABS: Potassium 3.3 mmoL/L (3.5-5.1)
[2023-10-06 23:57] LABS: Blood Urea Nitrogen 7 mg/dl (7-17); Creatinine Clearance Estimated 143 mL/min (50-200); Estimated Glomerular Filt Rate 125 ml/min (>60); GFR (African American) 151 ML/MIN (>60)
[2023-10-06 23:58] LABS: Anion Gap 12.3 mEq/L (5-15); Calcium 9.2 mg/dl (8.4-10.2); Carbon Dioxide 19 mmol/L (22.0-30.0); Glucose 89 mg/dl (74-100)
[2023-10-07] VITALS (9 sets, daily range): BP systolic 126–149; BP diastolic 65–86; PULSE 62–97; RESP 12–20; TEMP 36.6–37; O2SAT 98–100
[2023-10-07 01:05] LABS: Microscopic, Urine URINE MICROSCOPIC (MICROSCOPIC)
[2023-10-07 01:07] LABS: Appearance,Urine Cloudy (Clear); Bilirubin,Urine Negative (Negative); Blood, Urine 3+ (Negative); Color,Urine YELLOW (Yellow); Glucose,Urine (UA) Negative (Negative); Ketones,Urine 3+ (Negative); Leukocyte Esterase,Urine 2+ (Negative); Nitrate,Urine Negative (Negative); PH,Urine 6.5 (5.0-8.5); Protein,Urine 1+ (Negative); Specific Gravity, Urine 1.025 (1.005-1.030); Urobilinogen,Urine 0.2 EU/dl (0.2)
[2023-10-07 01:17] LABS: Amphetamine/Metha Screen,Urine Negative ng/ml (<1000)
[2023-10-07 01:18] LABS: Barbiturates Screen,Urine Negative ng/ml (<200); Benzodiazepines Screen,Urine Negative ng/ml (<200)
[2023-10-07 01:19] LABS: Cannabinoid Screen,Urine Negative ng/ml (<50); Cocaine Screen,Urine Negative ng/ml (<300)
[2023-10-07 01:20] LABS: Methadone Screen,Urine Negative ng/ml (<300)
[2023-10-07 01:21] LABS: Opiate Screen,Urine Negative ng/ml (<300); Phencyclidine Screen,Urine Negative ng/ml (<25)
[2023-10-07 01:25] LABS: Bacteria,Urine 2+ /lpf; Mucus,Urine 1+ /lpf
[2023-10-07] MEDS: PROMETHAZINE HCL 25MG/ML 1ML VIAL 12.5 MG IV (03:08)
[2023-10-07] MEDS: SODIUM CHLORIDE 0.9% 25ML BAG 25 ML IV (03:08)
[2023-10-07] MEDS: TERBUTALINE SULFATE 1MG/ML VIAL 0.25 MG SQ (04:51)
[2023-10-07] MEDS: LACTATED RINGERS 1000ML 1,000 ML 999 ML IV (05:51)
[2023-10-07] MEDS: CITRIC ACID/SODIUM CITRATE ORAL SOLN 30ML UDC 30 ML PO (05:51)
--- NOTE | 2023-10-07 06:54 | P.PNANES_ITS ---
[facility] Disclaimer: The information contained in this section may have been updated after the patient was seen, as this information can be updated by other users. Medical History Screening for genetic disease carrier status History of depression, currently History of pre-eclampsia in prior , currently Maternal obesity affecting , antepartum Morbid obesity with body mass index (BMI) greater than or equal to 50 Depression Anxiety Surgical History History of Family History Other No significant family history Social History Smoking Status: Current every day smoker alcohol intake: never substance use type: denies use current occupational status: employed Travel in the last 8 weeks: None [facility] Anesthesia Checklist Patient Identification Patient Identification: Arm Band and Verbal (Name & ) Structural Data Admitted From: Inpatient Planned Operative Procedure/s: Repeat C/S Consent for Planned Operative Procedure(s) Verified: Yes Verified Documents: Surgical Consent NPO Status Verified Time NPO: 00:00 Chart Verification Results Verified: CBC and BMP Additional verifications Patient : Yes Anesthesia Reactions: No Airway Assessment Mallampati Score:: Class III C-Spine Mobility Assessed: Yes TMJ Mobility Assessed: Yes Dentition: Good Dentition Neurological Assessment Level of Consciousness: Awake Hx Seizures: No Numbness or tingling in extremities: No Anesthesia Plan Anesthesia Risk discussed: Yes Anesthesia Plan: Verified ASA Class: III Anesthesia Type: Spinal
--- NOTE | 2023-10-07 07:20 | HMH.PHAINT1 ---
Pharmacy Intervention Comments: MEDICATION RECONCILIATION COMPLETED ON PATIENT USING EXTERNAL FILL HISTORY FROM PHARMACY AND LIST FROM PREVIOUS ADMISSION. -SALO CASTILLO, CHRISD
--- NOTE | 2023-10-07 07:28 | EXP.HP ---
History of Present Illness *Admission Date: 10/07/23 *Reason for visit:: Labor *History of present illness: Ana Guillermo is a 22yo at 39w0d gestation, DESI: 10/14/23, based first trimester US. She presented to L&D last night around 2200 with regular painful contractions every 2-3 minutes. She was evaluated the night before as well for the same complaint. On presentation patient endorsed good movement and denies any leakage of fluid or vaginal bleeding. Her was complicated by history of preeclampsia, maternal obesity, and history of depression. Patient took baby aspirin throughout her . Her blood pressure was fairly well-controlled throughout . It started to show signs of elevation around 35 weeks gestation. However the highest blood pressure in the office was 132/90. She denies any headaches, vision changes, or right upper quadrant pain. Her blood pressure remained well-controlled overnight. A+, antibody negative, NON-rubella immune, hepatitis B negative, hepatitis C negative, RPR negative, HIV negative 1 hour GTT: 119 GBS unknown, collected at last office visit [facility] Disclaimer: The information contained in this section may have been updated after the patient was seen, as this information can be updated by other users. Medical History Screening for genetic disease carrier status History of depression, currently History of pre-eclampsia in prior , currently Maternal obesity affecting , antepartum Morbid obesity with body mass index (BMI) greater than or equal to 50 Depression Anxiety Surgical History History of Family History Other No significant family history Social History Smoking Status: Current every day smoker alcohol intake: never substance use type: denies use current occupational status: employed Travel in the last 8 weeks: None Review of Systems Review of Systems Review of systems (narrative): Review of Systems Constitutional: Denies fever, chills, and sweats Eyes: Denies vision change/ pain Respiratory: Denies cough and shortness of breath Cardiovascular: Denies chest pain and lightheadedness Gastrointestinal: Admits abdominal pain with contractions. Denies nausea, vomiting. Genitourinary: Denies dysuria and incontinence Musculoskeletal: Denies shoulder pain and back pain Neurological: Denies change in speech or headaches Meds Home Medications and Allergies Home Medications Medication Instructions Recorded Confirmed Type vits no.126-ferrous fum 1 tab PO DAILY 03/04/23 10/07/23 History 28 mg iron-folic acid 800 mcg tablet (Classic ) aspirin 81 mg tablet,delayed 81 mg PO DAILY 03/29/23 10/07/23 History release (Adult Low Dose Aspirin) nifedipine 30 mg tablet,extended 30 mg PO DAILY #30 tabs 10/03/23 10/07/23 Rx release ondansetron 4 mg disintegrating 4 mg PO Q6HP PRN Nausea And 10/05/23 10/07/23 History tablet Vomiting New Prescriptions to Start Prescriptions: Allergies Allergy/AdvReac Type Severity Reaction Status Date / Time No Known Allergies Allergy Verified 10/03/23 10:43 Exam Data for Last 24 hours Vital signs and Labs for Last 24 Hours: Temp Pulse Resp BP Pulse Ox O2 Del Method 98.0 F 83 18 136/80 100 Room Air 10/06/23 22:12 10/06/23 22:12 10/06/23 22:12 10/06/23 22:12 10/06/23 22:12 10/06/23 22:12 Laboratory Results - last 24 hr 10/06/23 23:35: WBC 13.6 H, RBC 3.96 L, Hgb 10.5 L, Hct 32.5 L, MCV 82.2, MCH 26.5 L, MCHC 32.2, RDW 15.1, Plt Count 308, MPV 10.9 H, Neut % (Auto) 69.9, Lymph % (Auto) 22.7, [place] % (Auto) 6.0, Eos % (Auto) 1.1, Baso % (Auto) 0.5, Neut # (Auto) 9.5 H, Lymph # (Auto) 3.1, [place] # (Auto) 0.8, Eos # (Auto) 0.2, Baso # (Auto) 0.1, Sodium 133 L, Potassium 3.3 L, Chloride 105, Carbon Dioxide 19 L, Anion Gap 12.3, BUN 7, Creatinine 0.60, Estimated Creat Clear 143, Estimated GFR 125, Est GFR ( Amer) 151, Glucose 89, Calcium 9.2, Blood Type A Positive, Antibody Screen Negative 10/07/23 01:00: Urine Color Yellow, Urine Appearance Cloudy, Urine pH 6.5, Ur Specific [place] 1.025, Urine Protein 1+, Urine Glucose (UA) Negative, Urine Ketones 3+, Urine Blood 3+, Urine Nitrate Negative, Urine Bilirubin Negative, Urine Urobilinogen 0.2, Ur Leukocyte Esterase 2+ A, Urine RBC 10-20, Urine WBC 5-10, Ur Squamous Epith Cells 5-10, Urine Bacteria 2+, Urine Mucus 1+, Urine Opiates Screen Negative, Urine Methadone Screen Negative, Ur Barbituates Screen Negative, Ur Phencyclidine Scrn Negative, Ur Amphetamines Screen Negative, U Benzodiazepines Scrn Negative, Urine Cocaine Screen Negative, U Marijuana (THC) Screen Negative I & O for Last 24 hours: Intake & Output 10/04/23 10/05/23 10/06/23 10/07/23 23:59 23:59 23:59 23:59 Weight 340 lb Narrative: General: patient is alert oriented in no acute distress and responds appropriately to questions. HEENT: NCAT, EOMI, moist mucous membranes, neck supple with full ROM Cardiovascular: RRR +S1/S2, no murmurs or rubs Pulmonary: Clear to auscultation bilaterally, nonlabored breathing, symmetric chest rise Abdominal: Gravid abdomen appropriate for gestation. No guarding, rebound, or tenderness noted. Edema noted in the pannus as well Extremities: +2 edema, no tenderness or cyanosis noted Skin: Normal turgor, intact, warm. Negative for erythema, pallor, petechia, or lesions Neurologic: Negative for sensory or motor deficit Psychiatric: Normal affect, normal thought process, good judgment and insight, no depression or anxious mood appreciated. *Routine HEENT Exam Head: Present normocephalic and atraumatic Eye: Present EOMI, PERRL and normal accommodation; Absent conjunctival icterus, scleral injection, nystagmus or exophthalmos ENT: Present mucous membranes moist *Routine Respiratory Exam Respiratory: Present CTA bilaterally, normal respiratory effort, able to speak in complete sentences and symmetric chest movement; Absent accessory muscle use, decreased breath sounds, rales, respiratory distress, wheezes, distant breath sounds or diminished air movement *Routine Cardiovascular Exam Cardiovascular: Present RRR, Normal S1 and Normal S2; Absent murmur or gallop *Routine Abdominal Exam Abdominal: Present soft and normoactive bowel sounds; Absent tenderness, distended, rebound or guarding *Routine Rectal Exam Rectal:: deferred *Routine Genitalia Exam Genitalia:: normal female Assessment and Plan *Assessment and plan (1) : Status: Acute Qualifiers: Weeks of gestation: 38 weeks Qualified Code(s): Z3A.38 - 38 weeks gestation of Category: Medical Code(s): Z34.90 - Encounter for supervision of normal , unspecified, unspecified trimester (2) Screening for genetic disease carrier status: Problem Comment: 03/29/23- carrier screen negative for 4 conditions tested: CF, Fragile X, SMA and DMD Status: Acute Category: Medical Code(s): Z13.71 - Encounter for nonprocreative screening for genetic disease carrier status (3) History of depression, currently : Status: Acute Category: Medical Code(s): O99.891 - Other specified diseases and conditions complicating ; Z86.59 - Personal history of other mental and behavioral disorders (4) History of : Status: Acute Category: Surgical Code(s): Z98.891 - History of uterine scar from previous surgery (5) History of pre-eclampsia in prior , currently : Status: Acute Category: Medical Code(s): O09.299 - Supervision of with other poor reproductive or obstetric history, unspecified trimester (6) Maternal obesity affecting , antepartum: Status: Acute Qualifiers: Obesity type affecting : unspecified obesity Qualified Code(s): O99.210 - Obesity complicating , unspecified trimester Category: Medical Code(s): O99.210 - Obesity complicating , unspecified trimester (7) Morbid obesity with body mass index (BMI) greater than or equal to 50: Status: Acute Category: Medical Code(s): E66.01 - Morbid (severe) obesity due to excess calories (8) History of gastric bypass: Problem Comment: gastric sleeve Status: Chronic Category: Surgical Code(s): Z98.84 - Bariatric surgery status (9) Irregular contractions: Status: Acute Category: Medical Code(s): O47.9 - False labor, unspecified (10) Anemia: Status: Acute Category: Medical Code(s): D64.9 - Anemia, unspecified Plan - Monitor vitals - Admit to L&D for repeat delivery - External FHR and TOCO monitor - GBS pending -Blood type: A+ - Hemoglobin: 10.5, Plt: 308 -Anemia noted with a normocytic MCV. It is slightly low at 82, but still within the band. This is likely a combination of iron deficiency and physiologic anemia of . We will monitor . She may be a good candidate for IV iron on day #1. - Plan for spinal anesthesia - Anticipate vaginal delivery of female : Rose
[2023-10-07] MEDS: CEFAZOLIN SODIUM 3 GM in 0.9 % SODIUM CHLORIDE 100 ML IV (07:30)
--- NOTE | 2023-10-07 08:53 | EXP.ANES.I ---
[facility] Anesthesia Record Part I Anesthesia Record I Intake, IV Amount: 1,700 Hydration: Adequate Estimated blood loss (mL): 300 Urine output (mL): 0 Blood Pressure: 126/65 SaO2: 100 Pulse Rate: 77 Airway Patency: Patent Respiratory Rate: 12 Temperature: 98.4 F Patient is:: Awake Stable to PACU at:: 08:45
--- NOTE | 2023-10-07 09:02 | P.OP_ITS ---
Date of procedure: 10/07/23 Pre-op Diagnosis:: 1. 39 weeks 0days gestation, [place] 2. Gestational Hypertension 3. History of preeclampsia 4. Hx of depression 5. Maternal obesity 6. Previous delivery, desires repeat 7. GBS unknown 8. Rh Positive Post-op Diagnosis:: 1. 39 weeks 0days gestation, [place] 2. Gestational Hypertension 3. History of preeclampsia 4. Hx of depression 5. Maternal obesity 6. Previous delivery, desires repeat 7. GBS unknown 8. Rh Positive Procedure performed:: Repeat Delivery Surgeon:: Dominique Drew DO Lay Out And Detail Drafter(s):: Melvina Baumann PERSONNEL WORKER:: Dexter Car Anesthesia: spinal Estimated blood loss (mL): 300 Operative findings:: 1. Live viable female : Rose. Weight: 8pounds 4ounces, 3742g. Apgars 9 and 9 at 1 and 5 minutes respectively 2. Normal-appearing fallopian tubes and ovaries bilaterally. There was a left paratubal cyst noted Operative note:: Medications: 3 g of Ancef Summary: Procedure explained in its entirety. The patient was counseled on the risks and benefits of section including bleeding, vascular injury, infection, and injury to the surrounding structures. Hemorrhage requiring life saving blood transfusion resulting in blood born viral infection or allergic reaction was explained and the patient consented to blood transfusion. Possible need for further operative measures prolonging recovery time and hospitalization reviewed to include hysterectomy. Procedure explained in its entirety and patient had no further questions. Consented to procedure. The patient was taken back to the operating room where adequate spinal anesthesia was obtained. Pneumatic compression stockings applied to lower extremities. Ancef 3g was given for infection prophylaxis. She was placed in the dorsal supine position Urinary catheter was placed and found to be draining clear urine. The patient was prepped and draped in sterile fashion. Anesthesia was tested and and found to be adequate. A Pfannenstiel skin incision was made with the scalpel. Subcutaneous bleeding vessels were cauterized with the bovie. The incision was taken down to the fascia with the bovie. The fascia was knicked in the midline and sharply extended laterally. The superior aspect of the fascia was grasped with Bryn clamps and the rectus muscle was taken down with the Bovie. The rectus muscle was sharply dissected from the midline with Mayos. This process was repeated inferiorly. The rectus muscles were in the midline, peritoneum was identified and entered bluntly. It was felt that this opening to the abdominal cavity was still narrowed. The superior fascia was grasped and the rectus muscles were taken down further. Quintin O retractor was placed and the bladder was noted to be out of the operative field. A bladder flap was created with Metzenbaum scissors and Turkmen pickups. The lower uterine segment was easily identified, sharply incised, and entered bluntly with the surgeon's index finger. Incision was then extended in a superior and inferior fashion by blunt separation. Membranes were ruptured revealing clear fluid. The fetus was in cephalic presentation. The head was carefully elevated out of the pelvis. Fundal pressure was applied when head was brought into incision. The infants head was delivered without difficulty. The shoulder and body followed without complication. Delivery occurred at 0759. The mouth and nose were suctioned with a bulb. The umbilical cord was clamped and cut. was taken to warmer for evaluation by the newspaper press operator apprentice. Cord blood was collected. The placenta was delivered via fundal massage and found to be normal and intact. 3 vessel cord was noted. IV Pitocin was initiated. Inside of the uterus was gently cleared of blood and clots with lap sponge. The hysterotomy was closed with 0 Vicryl in a running locked fashion. The lower uterine segment was visualized and noted to be hemostatic. The bladder flap was reapproximated with 2-0 Monocryl. The ovaries and tubes were found to be normal. The posterior aspect of the uterus was cleared of blood clot with a damp lap sponge. The gutters were inspected bilaterally and cleared of blood and clots with lap sponges. The uterine incision was reinspected and hemostasis noted. Quintin O retractor was removed. The peritoneum was reapproximated using a 2-0 Monocryl in a nonlocked running fashion. The fascia was closed in a running nonlocked fashion using 0 Vicryl. Fascia was noted as not having gaps or defects. The subcutaneous adipose tissue was closed in a 2 layer fashion using 0 Vicryl and 2-0 Vicryl. Skin was closed with the INSORB suture in a subcuticular fashion. Patient tolerated the procedure well and all counts were correct x3, per nursing. Patient will receive tap blocks and then be transported to the OB PACU for recovery and infant bonding. Condition: stable Disposition: PACU Specimens:: none Complications:: None
[2023-10-07] MEDS: LACTATED RINGERS 1000ML 1,000 ML 100 ML IV (09:22)
[2023-10-07] MEDS: OXYTOCIN/RINGERS LACTATE 30 UNITS/500 ML BAG 40 UNITS IV (09:22)
[2023-10-07] MEDS: KETOROLAC 30MG/ML VIAL 30 MG IV ×3 (09:27→21:13)
[2023-10-07 09:42] LABS: Microscopic,Cath URINE MICROSCOPIC (MICROSCOPIC)
[2023-10-07 09:52] LABS: Appearance,Urine/Cath CLEAR (Clear); Blood, Urine/Cath Negative (Negative); Color,Urine/Cath YELLOW (Yellow); Glucose,Urine/Cath (UA) Negative (Negative); Ketones,Urine/Cath 1+ (Negative); Leukocyte Esterase,Cath Negative (Negative); Nitrate,Cath Negative (Negative); Protein,Urine/Cath 1+ (Negative); Specific Gravity, Urine/Cath >= 1.030 (1.005-1.030); Urobilinogen,Cath 0.2 EU/dl (0.2)
[2023-10-07 10:13] LABS: Bilirubin,Cath Negative (Negative)
[2023-10-07] MEDS: ACETAMINOPHEN 500MG TAB 1000 MG PO ×3 (10:23→21:13)
[2023-10-07] MEDS: OXYCODONE 5MG IMMEDIATE RELEASE TABLET 5 MG PO ×2 (10:24→19:45)
[2023-10-07] MEDS: SIMETHICONE 80MG CHEWABLE TABLET 160 MG PO (10:25)
[2023-10-07] MEDS: SENNA 8.6MG TABLET 8.59999999999999964 MG PO (10:25)
--- NOTE | 2023-10-07 10:46 | SUR.OPER ---
TOB- 0759. Cord blood PH not requested by PEDS or Surgeon
--- NOTE | 2023-10-07 10:47 | SUR.PHASEI ---
0914- Detailed report given to cindy roberto in pt room. VSS, dressings CDI, family at bedside.
[2023-10-07 11:50] LABS: Bacteria,Urine/Cath TRACE /lpf; Mucus,Urine/Cath Trace /lpf; WBC,Urine/Cath Occasional #/hpf (0-3)
--- NOTE | 2023-10-07 12:08 | P.PNANES_ITS ---
[facility] Anesthesia Record Part II Anesthesia Record Part II Discharge Time: 09:15 Destination: Obstetric PACU nurse assessment reviewed?: Yes Patient Condition:: Good Anesthesia Complications:: None Swallowing reflex intact?: Yes Airway Patency: Patent Cyanosis?: No Blood Pressure: 141/78 SaO2: 100 Respiratory Rate: 16 Pulse Rate: 62 Temperature: 98.4 F Mental Status: Alert & Oriented Pain level:: 0 Nausea and/or vomitting:: None Intake, IV Amount: 0 Hydration: Adequate
[2023-10-07] MEDS: PRENATAL MULTIVITAMIN W/IRON 1 EACH PO (17:50)
[2023-10-08 04:02] VITALS: BP 144/79; PULSE 91; RESP 20; TEMP 36.8; O2SAT 98
[2023-10-08] MEDS: IBUPROFEN 400 MG TABLET 800 MG PO ×3 (04:07→22:37)
[2023-10-08] MEDS: ACETAMINOPHEN 500MG TAB 1000 MG PO ×4 (04:08→22:37)
[2023-10-08 07:30] VITALS: BP 145/78; PULSE 82; RESP 18; TEMP 36.6; O2SAT 98
[2023-10-08] MEDS: SENNA 8.6MG TABLET 8.59999999999999964 MG PO (08:26)
[2023-10-08 08:44] LABS: Basophils # 0.1 K/mm3 (0-0.2); Basophils % 0.5 % (0.1-2.0); Eosinophils % 0.3 % (0.1-12.0); Hematocrit 28.8 % (37.0-47.0); Hemoglobin 9.3 g/dL (12.2-16.2); Lymphocytes % 16.3 % (10-50); Mean Corpuscular HGB Conc 32.5 g/dL (31.8-35.4); Mean Corpuscular Hemoglobin 25.9 pg (27.0-31.2); Mean Corpuscular Volume 79.8 fl (81-99); Mean Platelet Volume 9.8 fl (7.4-10.4); Monocytes # 0.8 K/mm3 (0.1-1.0); Monocytes % 6.2 % (1.7-9.3); Neutrophils # 9.5 K/mm3 (1.8-7.8); Neutrophils % 76.7 % (37.0-80.0); Platelet Count 286 K/mm3 (142-424); Red Blood Count 3.61 M/mm3 (4.20-5.40); Red Cell Distribution Width 15.6 % (11.5-17.5); White Blood Count 12.4 K/mm3 (4.8-10.8)
--- NOTE | 2023-10-08 11:00 | EXP.PN ---
Subjective *Date: 10/08/23 *Time: 11:00 Interval history: Ana Guillermo is a pleasant 22-year-old G2, P2 postoperative day #1 from a repeat delivery at 39 weeks and 0 days gestation. was complicated by gestational hypertension, history of preeclampsia, history of depression, maternal obesity, and previous delivery-desires repeat. Surgery was uncomplicated. She has had a routine course thus far. -Reports pain is well-controlled with ibuprofen and Tylenol. She has required a total of 2 doses of oxycodone 5 mg in the last approximately 24 hours -She is breast-feeding her female -Reports she is tolerating p.o. without nausea or vomiting. -Reports her lochia is absent. -Ambulating, voiding difficulty or dysuria. Denies chest pain shortness of breath or pain in her legs. No further complaints at this time. Exam Data for Last 24 hours Vital signs and Labs for Last 24 Hours: Temp Pulse Resp BP Pulse Ox O2 Del Method 98 F 82 18 145/78 H 98 Room Air 10/08/23 07:30 10/08/23 07:30 10/08/23 07:30 10/08/23 07:30 10/08/23 07:30 10/08/23 07:30 Laboratory Results - last 24 hr 10/07/23 : Urine RBC None, Urine WBC Occasional, Ur Squamous Epith Cells 5-10, Urine Bacteria Trace 10/08/23 07:53: WBC 12.4 H, RBC 3.61 L, Hgb 9.3 L, Hct 28.8 L, MCV 79.8 L, MCH 25.9 L, MCHC 32.5, RDW 15.6, Plt Count 286, MPV 9.8, Neut % (Auto) 76.7, Lymph % (Auto) 16.3, [place] % (Auto) 6.2, Eos % (Auto) 0.3, Baso % (Auto) 0.5, Neut # (Auto) 9.5 H, Lymph # (Auto) 2.0, [place] # (Auto) 0.8, Eos # (Auto) 0.0, Baso # (Auto) 0.1 I & O for Last 24 hours: Intake & Output 10/05/23 10/06/23 10/07/23 10/08/23 23:59 23:59 23:59 23:59 Intake Total 1700 / 1700 Balance 1700 / 1700 Weight 340 lb Microbiology Reports for the Last 24 Hours: Microbiology 10/07/23 01:00 Urine,Clean Catch Urine Culture - Final Narrative: General: patient is alert oriented in no acute distress and responds appropriately to questions. Appears to be in minimal pain. Sitting up in the chair and doing well HEENT: NCAT, EOMI, moist mucous membranes, neck supple with full ROM Cardiovascular: RRR +S1/S2, no murmurs or rubs Pulmonary: Clear to auscultation bilaterally, nonlabored breathing, symmetric chest rise Abdominal: Fundus below the umbilicus, firm, and tenderness appropriate for the period. Extremities: trace edema, no tenderness or cyanosis noted Skin: Normal turgor, intact, warm. Negative for erythema, pallor, petechia, or lesions. Vancil incision is still covered by the dressing yesterday. I did remove part of it and the incision looks like it is healing well. Neurologic: Negative for sensory or motor deficit Psychiatric: Normal affect, normal thought process, good judgment and insight, no depression or anxious mood appreciated. Assessment and Plan *Assessment and plan (1) Anemia: Status: Acute Category: Medical Code(s): D64.9 - Anemia, unspecified (2) : Status: Acute Qualifiers: Weeks of gestation: 38 weeks Qualified Code(s): Z3A.38 - 38 weeks gestation of Category: Medical Code(s): Z34.90 - Encounter for supervision of normal , unspecified, unspecified trimester (3) History of depression, currently : Status: Acute Category: Medical Code(s): O99.891 - Other specified diseases and conditions complicating ; Z86.59 - Personal history of other mental and behavioral disorders (4) History of : Status: Acute Category: Surgical Code(s): Z98.891 - History of uterine scar from previous surgery (5) History of pre-eclampsia in prior , currently : Status: Acute Category: Medical Code(s): O09.299 - Supervision of with other poor reproductive or obstetric history, unspecified trimester (6) Maternal obesity affecting , antepartum: Status: Acute Qualifiers: Obesity type affecting : unspecified obesity Qualified Code(s): O99.210 - Obesity complicating , unspecified trimester Category: Medical Code(s): O99.210 - Obesity complicating , unspecified trimester (7) Morbid obesity with body mass index (BMI) greater than or equal to 50: Status: Acute Category: Medical Code(s): E66.01 - Morbid (severe) obesity due to excess calories (8) History of gastric bypass: Problem Comment: gastric sleeve Status: Chronic Category: Surgical Code(s): Z98.84 - Bariatric surgery status (9) delivery delivered: Status: Acute Category: Medical Code(s): O82 - Encounter for delivery without indication Plan Stable. POD#1 s/p repeat delivery -Doing well. VSS. Serial lochia and fundal checks. -Encourage patient to take a shower and remove her dressing. Encourage patient to keep the incision clean and dry. The patient states that following her last she had a fungal infection and is requesting nystatin powder for discharge home. No signs of infection or yeast at this time. Rx will be sent -, female -Contraception: undecided -Follow-up 1-2 weeks for routine visit -Dispo: home tomorrow pending mother/infant status #Anemia -Reviewed the patient's hemoglobin history for the last several years. The patient typically drops to a hemoglobin of 10 to 11 g/dL during and outside of her her hemoglobin typically rebounds well to 13. She feels comfortable discharging home with p.o. iron. Discussed the need for an IV infusion of iron at a later date possibly. The patient does not have IV access this morning and we will delay IV infusion today. -Hemoglobin: 10.5--> 9.3 - asymptomatic anemia noted. Vitals stable. Continue monitoring. DC with Fe -A+/antibody negative
[2023-10-08] MEDS: FERROUS SULFATE 325MG TABLET 325 MG PO (12:45)
[2023-10-08] MEDS: PRENATAL MULTIVITAMIN W/IRON 1 EACH PO (16:26)
[2023-10-08 20:23] VITALS: BP 143/68; PULSE 90; RESP 18; TEMP 36.9; O2SAT 98
[2023-10-09 04:30] VITALS: BP 177/83
[2023-10-09 04:49] VITALS: BP 140/84; PULSE 85; RESP 20; TEMP 37; O2SAT 99
[2023-10-09 08:25] VITALS: BP 144/83; PULSE 91; RESP 18; TEMP 37.1; O2SAT 99
[2023-10-09] MEDS: FERROUS SULFATE 325MG TABLET 325 MG PO (08:27)
--- NOTE | 2023-10-09 12:37 | EXP.DC.SUM ---
General Admission date:: 10/06/23 Discharge date: 10/09/23 HPI HPI HPI: Ana Guillermo is a 22yo at 39w0d gestation, DESI: 10/14/23, based first trimester US. She presented to L&D last night around 2200 with regular painful contractions every 2-3 minutes. She was evaluated the night before as well for the same complaint. On presentation patient endorsed good movement and denies any leakage of fluid or vaginal bleeding. Her was complicated by history of preeclampsia, maternal obesity, and history of depression. Patient took baby aspirin throughout her . Her blood pressure was fairly well-controlled throughout . It started to show signs of elevation around 35 weeks gestation. However the highest blood pressure in the office was 132/90. She denies any headaches, vision changes, or right upper quadrant pain. Her blood pressure remained well-controlled overnight. A+, antibody negative, NON-rubella immune, hepatitis B negative, hepatitis C negative, RPR negative, HIV negative 1 hour GTT: 119 GBS unknown, collected at last office visit Hospital Course Hospital Course Hospital Course: Ana Guillermo is a pleasant 22-year-old G2, P2 postoperative day #2 from a repeat delivery at 39 weeks and 0 days gestation. was complicated by gestational hypertension, history of preeclampsia, history of depression, maternal obesity, and previous delivery-desires repeat. Surgery was uncomplicated. She has had a routine course thus far. -Reports pain is well-controlled with ibuprofen and Tylenol. -She is breast-feeding her female -Reports she is tolerating p.o. without nausea or vomiting. -Reports her lochia is absent. -Ambulating, voiding difficulty or dysuria. Denies chest pain shortness of breath or pain in her legs. No further complaints at this time. Ana desires discharge home. DC instructions reviewed with pt, spouse and pt mom in detail. all questions and concerns addressed. Pt instructed to DC ASA and not to start nifedipine since she didnt start prior to delivery. Exam Data for Last 24 hours Vital signs and Labs for Last 24 Hours: Temp Pulse Resp BP Pulse Ox O2 Del Method 98.7 F 91 H 18 144/83 H 99 Room Air 10/09/23 08:25 10/09/23 08:25 10/09/23 08:25 10/09/23 08:25 10/09/23 08:25 10/09/23 08:25 I & O for Last 24 hours: Intake & Output 10/06/23 10/07/23 10/08/23 10/09/23 23:59 23:59 23:59 23:59 Intake Total 1700 / 1700 Balance 1700 / 1700 Weight 340 lb Narrative: General: patient is alert oriented in no acute distress and responds appropriately to questions. Appears to be in minimal pain. Sitting up in the bed and doing well HEENT: NCAT, EOMI, moist mucous membranes, neck supple with full ROM Cardiovascular: RRR +S1/S2, no murmurs or rubs Pulmonary: Clear to auscultation bilaterally, nonlabored breathing, symmetric chest rise Abdominal: Fundus below the umbilicus, firm, and tenderness appropriate for the period. Extremities: trace edema, no tenderness or cyanosis noted Skin: Normal turgor, intact, warm. Negative for erythema, pallor, petechia, or lesions. incision is healing well. no signs of infection. Neurologic: Negative for sensory or motor deficit Psychiatric: Normal affect, normal thought process, good judgment and insight, no depression or anxious mood appreciated. DS: Diagnosis Discharge Diagnosis (1) Anemia: Status: Acute Code(s): D64.9 - Anemia, unspecified (2) : Status: Acute Code(s): Z34.90 - Encounter for supervision of normal , unspecified, unspecified trimester Qualifiers: Weeks of gestation: 38 weeks Qualified Code(s): Z3A.38 - 38 weeks gestation of (3) History of depression, currently : Status: Acute Code(s): O99.891 - Other specified diseases and conditions complicating ; Z86.59 - Personal history of other mental and behavioral disorders (4) History of : Status: Acute Code(s): Z98.891 - History of uterine scar from previous surgery (5) History of pre-eclampsia in prior , currently : Status: Acute Code(s): O09.299 - Supervision of with other poor reproductive or obstetric history, unspecified trimester (6) Maternal obesity affecting , antepartum: Status: Acute Code(s): O99.210 - Obesity complicating , unspecified trimester Qualifiers: Obesity type affecting : unspecified obesity Qualified Code(s): O99.210 - Obesity complicating , unspecified trimester (7) Morbid obesity with body mass index (BMI) greater than or equal to 50: Status: Acute Code(s): E66.01 - Morbid (severe) obesity due to excess calories (8) History of gastric bypass: Status: Chronic Code(s): Z98.84 - Bariatric surgery status Problem details: gastric sleeve (9) delivery delivered: Status: Acute Code(s): O82 - Encounter for delivery without indication Problem details: Stable. POD#2 s/p repeat delivery -Doing well. VSS. Serial lochia and fundal checks. -Encourage patient to take a shower and remove her dressing. Encourage patient to keep the incision clean and dry. The patient states that following her last she had a fungal infection and is requesting nystatin powder for discharge home. No signs of infection or yeast at this time. Rx will be sent -, female infant -Contraception: undecided -Follow-up 1-2 weeks for routine visit -Dispo: home today pending mother/ status #Anemia -Reviewed the patient's hemoglobin history for the last several years. The patient typically drops to a hemoglobin of 10 to 11 g/dL during and outside of her her hemoglobin typically rebounds well to 13. She feels comfortable discharging home with p.o. iron. Discussed the need for an IV infusion of iron at a later date possibly. The patient does not have IV access this morning and we will delay IV infusion today. -Hemoglobin: 10.5--> 9.3 - asymptomatic anemia noted. Vitals stable. Continue monitoring. DC with Fe -A+/antibody negative Meds Home Medications and Allergies Home Medications Medication Instructions Recorded Confirmed Type vits no.126-ferrous fum 1 tab PO DAILY 03/04/23 10/07/23 History 28 mg iron-folic acid 800 mcg tablet (Classic ) acetaminophen 500 mg tablet 500 mg PO Q6H PRN fever #30 tabs 10/08/23 Rx ferrous sulfate 325 mg (65 mg 325 mg PO DAILY #30 tabs 10/08/23 Rx iron) tablet,delayed release ibuprofen 800 mg tablet 800 mg PO Q8H PRN pain #60 tabs 10/08/23 Rx nystatin 100,000 unit/gram topical 1 applic topical BID PRN yeast 10/08/23 Rx powder infec #15 grams oxycodone 5 mg tablet 5 mg PO Q8H PRN pain #20 tabs 10/08/23 Rx sennosides 8.6 mg tablet (Senna 8.6 mg PO BIDP PRN Constipation 10/08/23 Rx Lax) #60 tabs simethicone 125 mg tablet 125 mg PO DAILY PRN abdominal 10/08/23 Rx distention #60 tabs New Prescriptions to Start Prescriptions: acetaminophen Rajendra,Dominique ferrous sulfate Rajendra,Dominique ibuprofen Rajendra,Dominique nystatin Rajendra,Dominique oxycodone Rajendra,Dominique sennosides [Senna Lax] Rajendra,Dominique simethicone Dominique Drew Allergies Allergy/AdvReac Type Severity Reaction Status Date / Time No Known Allergies Allergy Verified 10/03/23 10:43 Discharge Plan Disposition Patient Disposition: Home, Self-Care Discharge Order Discharge Orders: Discharge Order (Routine); Ordered 10/09/23 Ordered By: Dominique Drew Follow up Plan Follow up with: Maki Dupont DO [Staff Physician] - 2 weeks Prescriptions/Medication Reconciliation: New acetaminophen 500 mg tablet 500 mg PO Q6H PRN (Reason: fever) Qty: 30 3RF sennosides [Senna Lax] 8.6 mg Tablet 8.6 mg PO BIDP PRN (Reason: Constipation) Qty: 60 2RF ibuprofen 800 mg tablet 800 mg PO Q8H PRN (Reason: pain) Qty: 60 2RF ferrous sulfate 325 mg (65 mg iron) tablet,delayed release (DR/EC) 325 mg PO DAILY Qty: 30 3RF oxycodone 5 mg tablet 5 mg PO Q8H PRN (Reason: pain) Qty: 20 0RF simethicone 125 mg tablet 125 mg PO DAILY PRN (Reason: abdominal distention) Qty: 60 2RF nystatin 100,000 unit/gram powder 1 applic topical BID PRN (Reason: yeast infec) Qty: 15 0RF Continued Classic 28 mg iron- 800 mcg tablet 1 tab PO DAILY Discontinued nifedipine 30 mg tablet extended release 30 mg PO DAILY Qty: 30 2RF aspirin [Adult Low Dose Aspirin] 81 mg tablet,delayed release (DR/EC) 81 mg PO DAILY ondansetron 4 mg tablet,disintegrating 4 mg PO Q6HP PRN (Reason: Nausea And Vomiting) Problem Reconciliation Problems Reviewed?: Yes Patient Discharge Instructions ACTIVITY: Continue current activity DIET: regular diet Additional Instructions: Congratulations on the delivery of your sweet baby girl. It is my privilege to be a part of your [employer] team and I am so thankful I could be a part of your special day. Discharge: 1. Take 800 mg Ibuprofen every 8 hours as needed for pain. You can also take 500-1000 mg of Tylenol in between doses, every 6-8 hours. Use prescription pain medicine for pain you feel in between 8 hour interval. -No driving while taking narcotic pain medications. In order to drive you should be able to slam on the brakes without significant abdominal pain. 2. Wean from prescription pain medicine first. Do not drive while taking it. 3. Prescription pain medicine can make you constipated. Colace can be taken 1-2 times per day as you need. Make sure to drink at least 8 cups of water per day. 4. Iron supplements can make you constipated. Colace can be taken 1-2 times per day as you need. You can take iron tablets every other day if constipation is too bad. 5. Nothing in the vagina for 6 weeks - no sex, douching, tampons. No tub baths 6. Do not lift greater than 15 pounds for 6 weeks, this is the equivalent of 2 gallons of milk. 7. Reasons to return to L&D or call On-Call doctor - fever (greater than 100.4) - heavy vaginal bleeding (soaking through 1 pad in less than 2 hours or passing clots that are egg sized) - vaginal discharge (malodorous and/or purulent) - bleeding or discharge from her incision - severe headaches, leg tenderness/edema, or any other symptoms that warrant immediate medical attention. 8. depression/blues - Normal to feel anxious/overwhelmed for first 2 weeks - Talk to your doctor if: anxiety lasts over 2 weeks, trouble bonding with baby, withdrawing from other family members, thoughts of harming yourself or others Blood pressure and preeclampsia instructions 1. Please take your blood pressure twice daily. 2. Please call if greater than 2 values are higher than: 150 systolic (the top number) or 100 diastolic (the bottom number). 3. Please go to the emergency room or labor and delivery triage if any value is higher than: 160 systolic (the top number) or 110 diastolic (the bottom number). 4. Please call if unrelenting headache (does not go away with rest or Tylenol or ibuprofen), changes in vision (spots, floaters, flashes of light), chest pain, shortness of breath, or right upper quadrant (liver) abdominal pain. Dominique Drew DO [facility] [phone] *Nothing in the Vagina for 6 weeks* *No strenuous activity* *No heavy lifting* *No tub baths until okay's by MD* Patient Instructions: Depression, Hemorrhage, DI for , DI for Pre-eclampsia, [facility] Post Discharge Instructions Providers Primary Care Provider: Hai Dickey Admit Provider: Dominique Drew Attending Provider: Dominique Drew
[2023-10-09] MEDS: MEASLES,MUMPS,RUBELLA VACCINE VIAL 0.5 ML SQ (13:58)
== END 2023-10-09 14:25 | disposition home or self-care (01) | DRG 788 ==
LOC: OBOUT 23:07 → OB 23:07
PROVIDERS: Admitting Provider Obstetrics & Gynecology; PCP Family Medicine; Visit Provider Obstetrics & Gynecology
PROC: 10D00Z1 Extraction of Products of Conception, Low, Open Approach (ICD-10-PCS; CPT 59514; principal; 2023-10-07 07:30)
DX: O34.211 Maternal care for low transverse scar from previous cesarean delivery (principal); O99.344 Other mental disorders complicating childbirth; Z3A.39 39 weeks gestation of pregnancy; Z37.0 Single live birth; F41.9 Anxiety disorder, unspecified; F32.A Depression, unspecified; O99.214 Obesity complicating childbirth; E66.01 Morbid (severe) obesity due to excess calories; O99.844 Bariatric surgery status complicating childbirth; Z3A.38 38 weeks gestation of pregnancy; O99.02 Anemia complicating childbirth; O13.4 Gestational [pregnancy-induced] hypertension without significant proteinuria, complicating childbirth
CPT/HCPCS: 59514; 36415; 59025; 80048; 80307; 81001; 85025; 86850; 87086; 90707; 94761; C9290; G0283; J2405

== ENCOUNTER 2023-10-13 16:00 | Observation (INO) | payer OTHER, SELFPAY ==
[2023-10-13] VITALS (33 sets, daily range): BP systolic 130–180; BP diastolic 67–112; PULSE 77–97; RESP 17–22; TEMP 36.6–37.3; O2SAT 97–100; BMI 50.6
[2023-10-13] MEDS: NIFEdipine 10MG CAPSULE 10 MG PO (15:30)
[2023-10-13] MEDS: LABETALOL 5MG/ML 20ML MDV 20 MG IV (15:45)
[2023-10-13 16:08] LABS: Chloride 107 mmol/L (98-107)
[2023-10-13 16:09] LABS: Sodium 140 mmol/L (136-145)
[2023-10-13 16:11] LABS: Alanine Aminotransferase 32 U/L (12-78); Aspartate Amino Transferase 24 U/L (14-36); Basophils # 0.1 K/mm3 (0-0.2); Basophils % 0.8 % (0.1-2.0); Blood Urea Nitrogen 10 mg/dl (7-17); Creatinine Clearance Estimated 118 mL/min (50-200); Eosinophils # 0.1 K/mm3 (0.0-0.4); Eosinophils % 1.4 % (0.1-12.0); Estimated Glomerular Filt Rate 105 ml/min (>60); GFR (African American) 127 ML/MIN (>60); Lymphocytes # 2.1 K/mm3 (0.7-4.5); Mean Corpuscular HGB Conc 32.5 g/dL (31.8-35.4); Mean Corpuscular Hemoglobin 26.3 pg (27.0-31.2); Mean Corpuscular Volume 80.9 fl (81-99); Mean Platelet Volume 8.5 fl (7.4-10.4); Monocytes # 0.4 K/mm3 (0.1-1.0); Monocytes % 4.5 % (1.7-9.3); Neutrophils # 6.4 K/mm3 (1.8-7.8); Neutrophils % 70.3 % (37.0-80.0); Platelet Count 495 K/mm3 (142-424); Red Cell Distribution Width 15.7 % (11.5-17.5); White Blood Count 9.1 K/mm3 (4.8-10.8)
[2023-10-13 16:12] LABS: Albumin/Globulin Ratio 1.3 (1.1-1.8); Alkaline Phosphatase 93 U/L (38-126); Bilirubin,Total 0.7 mg/dl (0.2-1.3); Calcium 9.4 mg/dl (8.4-10.2); Carbon Dioxide 25 mmol/L (22.0-30.0); Globulin 3.2 g/dL (1.3-3.2); Glucose 86 mg/dl (74-100); Total Protein,Serum 7.2 g/dl (6.3-8.2)
[2023-10-13 16:15] LABS: Creatinine,Urine Random 128 mg/dL (Not Estab.)
[2023-10-13] MEDS: LACTATED RINGERS 1000ML 1,000 ML 75 ML IV (16:16)
[2023-10-13 16:20] LABS: Microalbumin/Creatinine Ratio 91.5
[2023-10-13] MEDS: MAGNESIUM SULFATE IN WATER 4 GM/50 ML PIGGYBACK IV (16:20)
--- NOTE | 2023-10-13 16:24 | PC.NURSE ---
Dr. Dupont at bedside discussing plan of care with patient. Patient agreeable. No questions or concerns voiced at this time.
--- NOTE | 2023-10-13 16:25 | PC.NURSE ---
Dr. Dupont is at the bedside speaking with the pt
[2023-10-13 16:27] LABS: Uric Acid 5.6 mg/dl (2.5-6.2)
--- NOTE | 2023-10-13 16:35 | P.HP_ITS ---
History of Present Illness *Admission Date: 10/13/23 *Reason for visit:: Gestational hypertension, severe range blood pressures *History of present illness: Mrs Ana Guillermo is a 22 yo P2002 6 days s/p RLTCS who present to [facility] L&D from the office for elevated blood pressure. She was diagnosed with gestational hypertension around time of delivery. She was started on Procardia 30 mg PO daily but did not continue medication once discharged from the office. In the office BP was 156/96 and 160/106. She denies headaches, vision changes, RUQ pain and swelling. She is formula feeding. [facility] Disclaimer: The information contained in this section may have been updated after the patient was seen, as this information can be updated by other users. Medical History (Updated 10/13/23 @ 16:43 by Maki Dupont DO) Gestational hypertension Screening for genetic disease carrier status History of pre-eclampsia in prior , currently Maternal obesity affecting , antepartum Morbid obesity with body mass index (BMI) greater than or equal to 50 Depression Anxiety Surgical History History of gastric bypass History of Family History Other No significant family history Social History Smoking Status: Current some day smoker alcohol intake: never substance use type: denies use current occupational status: employed Travel in the last 8 weeks: None Review of Systems Review of Systems Review of systems:: pertinent systems reviewed and negative unless documented below Meds Home Medications and Allergies Home Medications Medication Instructions Recorded Confirmed Type vits no.126-ferrous fum 1 tab PO DAILY 03/04/23 10/13/23 History 28 mg iron-folic acid 800 mcg tablet (Classic ) acetaminophen 500 mg tablet 500 mg PO Q6H PRN fever #30 tabs 10/08/23 10/13/23 Rx ferrous sulfate 325 mg (65 mg 325 mg PO DAILY #30 tabs 10/08/23 10/13/23 Rx iron) tablet,delayed release ibuprofen 800 mg tablet 800 mg PO Q8H PRN pain #60 tabs 10/08/23 10/13/23 Rx nystatin 100,000 unit/gram topical 1 applic topical BID PRN yeast 10/08/23 10/13/23 Rx powder infec #15 grams New Prescriptions to Start Prescriptions: Allergies Allergy/AdvReac Type Severity Reaction Status Date / Time No Known Allergies Allergy Verified 10/13/23 13:34 Exam Data for Last 24 hours Vital signs and Labs for Last 24 Hours: Temp Pulse Resp BP Pulse Ox O2 Del Method 99.2 F 89 20 130/67 97 Room Air 10/13/23 14:40 10/13/23 14:55 10/13/23 14:40 10/13/23 15:55 10/13/23 14:55 10/13/23 14:55 Laboratory Results - last 24 hr 10/13/23 14:25: Urine Creatinine 128, Urine Microalbumin 117.200 H, Microalb/Creat Ratio 91.5 10/13/23 15:40: WBC 9.1, RBC 4.20, Hgb 11.0 L, Hct 34.0 L, MCV 80.9 L, MCH 26.3 L, MCHC 32.5, RDW 15.7, Plt Count 495 H, MPV 8.5, Neut % (Auto) 70.3, Lymph % (Auto) 23.0, Floyd % (Auto) 4.5, Eos % (Auto) 1.4, Baso % (Auto) 0.8, Neut # (Auto) 6.4, Lymph # (Auto) 2.1, Floyd # (Auto) 0.4, Eos # (Auto) 0.1, Baso # (Auto) 0.1, Sodium 140, Potassium 4.0, Chloride 107, Carbon Dioxide 25, Anion Gap 12.0, BUN 10, Creatinine 0.70, Estimated Creat Clear 118, Estimated GFR 105, Est GFR ( Amer) 127, Glucose 86, Uric Acid 5.6, Calcium 9.4, Total Bilirubin 0.7, AST 24, ALT 32, Alkaline Phosphatase 93, Total Protein 7.2, Albumin 4.0, Globulin 3.2, Albumin/Globulin Ratio 1.3 I & O for Last 24 hours: Intake & Output 10/10/23 10/11/23 10/12/23 10/13/23 23:59 23:59 23:59 23:59 Weight 314 lb Constitutional Constitutional: no acute distress and cooperative *Routine HEENT Exam Head: Present normocephalic and atraumatic Eye: Absent conjunctivae pink ENT: Present mucous membranes moist *Routine Neck Exam Neck: Present full ROM *Routine Respiratory Exam Respiratory: Present CTA bilaterally and normal respiratory effort *Routine Cardiovascular Exam Cardiovascular: Present RRR *Routine Abdominal Exam Abdominal: Present soft; Absent tenderness or distended *Routine Rectal Exam Rectal:: deferred *Routine Genitalia Exam Genitalia:: deferred *Routine Extremities Exam Extremities: Present full ROM; Absent edema or calf tenderness *Routine Neurological Exam Neurological: Present alert, moving all extremities and normal speech Routine Psychiatric Exam Psychiatric: Present normal affect and cooperative Assessment and Plan *Assessment and plan (1) Gestational hypertension: Status: Acute Qualifiers: Trimester: unspecified trimester Qualified Code(s): O13.9 - Gestational [-induced] hypertension without significant proteinuria, unspecified trimester Category: Medical Code(s): O13.9 - Gestational [-induced] hypertension without significant proteinuria, unspecified trimester (2) delivery delivered: Status: Acute Category: Medical Code(s): O82 - Encounter for delivery without indication (3) Morbid obesity with body mass index (BMI) greater than or equal to 50: Status: Acute Category: Medical Code(s): E66.01 - Morbid (severe) obesity due to excess calories (4) History of gastric bypass: Problem Comment: gastric sleeve Status: Chronic Category: Surgical Code(s): Z98.84 - Bariatric surgery status (5) History of pre-eclampsia in prior , currently : Status: Acute Category: Medical Code(s): O09.299 - Supervision of with other poor reproductive or obstetric history, unspecified trimester Plan Admit to L&D for GHTN, severe range BP PIH labs ordered She was given Procardia 10 mg PO x 1 dose until IV access was obtained and then she was given Labetalol 20 mg PO IV Start mag sulfate 4 gm bolus followed by 2 gm/hr. Check mag level 4 hours after bolus Start Labetalol 200 mg PO q 12 hours, 2100 and 0900 Bedside commode SCDs Regular diet
[2023-10-13] MEDS: MAGNESIUM SULFATE IN WATER 20 GM/500 ML IV.SOLN IV (16:45)
[2023-10-13 16:51] LABS: Activated Partial Thrombo Time 25.3 seconds (22.8-30.6); Fibrinogen 541 mg/dL (229.9-363.5); INR 0.96 (0.9-1.1); Prothrombin Time 10.4 seconds (10.1-12.5)
--- NOTE | 2023-10-13 17:06 | PC.NURSE ---
Patient awake and oriented x4. Denies visual disturbances or RUQ pain. Reports AWAN but declines medication at this time, wishes to eat and drink first. Lung sounds auscultated clear throughout. No signs of distress noted.
[2023-10-13] MEDS: LABETALOL 5MG/ML 20ML MDV 40 MG IV (17:14)
[2023-10-13 17:21] LABS: OB Protein,Urine (DIP) 1+ (Negative)
--- NOTE | 2023-10-13 17:35 | PC.NURSE ---
Patient awake in bed and playing on phone. Denies urge to use bedside commode at this time. No needs or concerns voiced at this time. SCUDs applied at this time.
--- NOTE | 2023-10-13 18:35 | PC.NURSE ---
Patient returning to bed after using bedside commode. Patient urinated small amount on floor. Reports relief of AWAN. Patient about to eat dinner. Lung sounds auscultated clear throughout bilaterally. No signs of distress noted and patient denies needs at this time.
--- NOTE | 2023-10-13 19:01 | PC.NURSE ---
All charting and care completed under my direct supervision
--- NOTE | 2023-10-13 19:20 | PC.NURSE ---
patient sitting up in bed, holding . No needs stated. pt denies headache, nausea, or vision changes. pt RRis 18 and lung sounds clear throughout.
[2023-10-13] MEDS: LABETALOL 100MG TABLET 200 MG PO (20:35)
--- NOTE | 2023-10-13 20:35 | PC.NURSE ---
Patient sitting up in bed, breath sounds clear throughout, RR 17. pt denies needs at this time
[2023-10-13 21:09] LABS: Magnesium 4.1 mg/dl (1.6-2.3)
--- NOTE | 2023-10-13 21:30 | PC.NURSE ---
Pt awake sitting up in bed holding . RR is 18, bilateral breath sounds clear throughout. pt denies needs at this time
--- NOTE | 2023-10-13 23:39 | PC.NURSE ---
Patient sitting up in bed, pumping at this time. pt denies needs. RR is 18, breath sounds clear throughout.
[2023-10-14] VITALS (18 sets, daily range): BP systolic 107–146; BP diastolic 51–87; PULSE 69–94; RESP 16–18; TEMP 36.6–36.9; O2SAT 98–100
--- NOTE | 2023-10-14 00:29 | PC.NURSE ---
Patient resting in bed at this time, lung sounds clear throughout, pt denies needs at this time
--- NOTE | 2023-10-14 01:00 | PC.NURSE ---
Pt resting in bed, denies needs, breath sounds clear throughout.
--- NOTE | 2023-10-14 02:29 | PC.NURSE ---
Pt resting in bed, lung sounds clear throughout, pt denies needs at this time.
[2023-10-14] MEDS: MAGNESIUM SULFATE IN WATER 20 GM/500 ML IV.SOLN IV ×2 (03:27→12:00)
[2023-10-14] MEDS: LACTATED RINGERS 1000ML 1,000 ML 75 ML IV (03:27)
--- NOTE | 2023-10-14 03:35 | PC.NURSE ---
Patient resting in bed, bilateral lung sounds clear throughout. pt denies any needs
--- NOTE | 2023-10-14 04:35 | PC.NURSE ---
Pt sitting up in bed, pt has rested throughout shift, pt denies vision changes, headaches, and nausea. lung sounds clear throughout, bowel sounds active in all quadrants, incision site WNL, bleeding WNL, vitals have been stable. Magnesium infusion is running at 50ml/hr in her left AC with LR infusing at 75ml/hr. IV is patent. no edema noted in legs or arms. pt has voided 650ml of clear yellow urine this shift on bedside commode. pt wearing SCDs on bilateral lower extremities. Pt denies needs at this time
--- NOTE | 2023-10-14 06:41 | PC.NURSE ---
Pt sitting up in bed holding , lung sounds clear throughout, pt denies needs at this time
--- NOTE | 2023-10-14 07:50 | PC.NURSE ---
Patients lungs CTA bilaterally. Respirations even and unlabored. Patient awake and alert. Call Light within reach. Patient present
[2023-10-14] MEDS: IBUPROFEN 400 MG TABLET 800 MG PO ×2 (07:51→16:58)
[2023-10-14] MEDS: ACETAMINOPHEN 500MG TAB 1000 MG PO ×2 (07:52→16:58)
[2023-10-14] MEDS: LABETALOL 100MG TABLET 200 MG PO (08:20)
--- NOTE | 2023-10-14 08:46 | PC.NURSE ---
Pt lungs CTA bilaterally. Patient is awake and alert. Patients present at this time. Call light within reach
--- NOTE | 2023-10-14 09:00 | PC.NURSE ---
Patients Lungs CTA bilaterally. Patient awake. Patients in room. Call light within reach.
--- NOTE | 2023-10-14 09:20 | PC.NURSE ---
Dr. Garcia called and asked about patient's status. Reported that her BP was WNL and that she is doing good. Plan of care discussed; magnesium to be turned off at 1630 and that patient will be discharged tomorrow morning.
--- NOTE | 2023-10-14 09:47 | PC.NURSE ---
Patient lung sounds clear throughout. Patient is appropriate and A&Ox4.
--- NOTE | 2023-10-14 10:40 | PC.NURSE ---
Patients Lungs CTA bilaterally, throughout. Patients present. Call light within reach.
--- NOTE | 2023-10-14 11:39 | PC.NURSE ---
Patients lung sounds CTA bilaterally. Patient alert. present in room. Call light within reach
--- NOTE | 2023-10-14 12:39 | PC.NURSE ---
Patients lungs CTA bilaterally, throughout. Patients mother present. Call light within reach
--- NOTE | 2023-10-14 13:39 | PC.NURSE ---
Pt in bed, pumping breastmilk. Denies pain. Patients Lungs CTA bilaterally. Patients and Mother present. Call light in reach
[2023-10-14 13:45] LABS: Magnesium 6.3 mg/dl (1.6-2.3)
[2023-10-14] MEDS: FLUOXETINE 20MG CAPSULE 20 MG PO (14:14)
--- NOTE | 2023-10-14 15:03 | PC.NURSE ---
Dr. Garcia notifed of patient status. Report given and BP discussed. New order to stop Mag infusion at this time. Read back and verified. Updated patient on POC. patient verbalized understanding
--- NOTE | 2023-10-14 15:27 | PC.NURSE ---
Dr. Garcia at bedside.
--- NOTE | 2023-10-14 15:32 | P.DS_ITS ---
General Admission date:: 10/13/23 Discharge date: 10/14/23 HPI HPI HPI: Mrs Ana Guillermo is a 22 yo P2002 6 days s/p RLTCS who present to [facility] L&D from the office for elevated blood pressure. She was diagnosed with gestational hypertension around time of delivery. She was started on Procardia 30 mg PO daily but did not continue medication once discharged from the office. In the office BP was 156/96 and 160/106. She denies headaches, vision changes, RUQ pain and swelling. She is formula feeding. Hospital Course Hospital Course Hospital Course: She was started on IV magnesium sulfate with a 4 g bolus and 2 g an hour. We continued this for 23 hours. She was started on labetalol 200 mg twice daily. Her blood pressure has stabilized and she is in the 120s over 70?80s. She denies any headache, scotomata or epigastric pain. Her blood work was all normal. She did admit to having early depression and we have started her on Prozac 20 mg. She has had this in the past and has taken Prozac in the past for depression. Exam Data for Last 24 hours Vital signs and Labs for Last 24 Hours: Temp Pulse Resp BP Pulse Ox O2 Del Method 98.1 F 83 18 128/68 98 Room Air 10/14/23 07:35 10/14/23 14:39 10/14/23 14:39 10/14/23 14:39 10/14/23 14:39 10/14/23 14:39 Laboratory Results - last 24 hr 10/13/23 14:25: Urine Protein 1+, Urine Creatinine 128, Urine Microalbumin 117.200 H, Microalb/Creat Ratio 91.5 10/13/23 15:40: WBC 9.1, RBC 4.20, Hgb 11.0 L, Hct 34.0 L, MCV 80.9 L, MCH 26.3 L, MCHC 32.5, RDW 15.7, Plt Count 495 H, MPV 8.5, Neut % (Auto) 70.3, Lymph % (Auto) 23.0, [place] % (Auto) 4.5, Eos % (Auto) 1.4, Baso % (Auto) 0.8, Neut # (Auto) 6.4, Lymph # (Auto) 2.1, [place] # (Auto) 0.4, Eos # (Auto) 0.1, Baso # (Auto) 0.1, PT 10.4, INR 0.96, APTT 25.3, Fibrinogen 541 H, Sodium 140, Potassium 4.0, Chloride 107, Carbon Dioxide 25, Anion Gap 12.0, BUN 10, Creatinine 0.70, Estimated Creat Clear 118, Estimated GFR 105, Est GFR ( Amer) 127, Glucose 86, Uric Acid 5.6, Calcium 9.4, Total Bilirubin 0.7, AST 24, ALT 32, Alkaline Phosphatase 93, Total Protein 7.2, Albumin 4.0, Globulin 3.2, Albumin/Globulin Ratio 1.3 10/13/23 20:26: Magnesium 4.1 H 10/14/23 13:25: Magnesium 6.3 H D I & O for Last 24 hours: Intake & Output 10/12/23 10/13/23 10/14/23 10/15/23 11:59 11:59 11:59 11:59 Intake Total 535 / 535 Output Total 1950 / 1950 300 / 300 Balance -1415 / -1415 -300 / -300 Weight 314 lb Constitutional Constitutional: no acute distress and obese *Routine HEENT Exam Head: Present normocephalic *Routine Neck Exam Neck: Present full ROM *Routine Respiratory Exam Respiratory: Present normal respiratory effort; Absent accessory muscle use Results Data Completed and Pending Labs on day of discharge: Labs from last 24 hours 10/14/23 10/13/23 10/13/23 13:25 20:26 15:40 WBC 9.1 RBC 4.20 Hgb 11.0 L Hct 34.0 L MCV 80.9 L MCH 26.3 L MCHC 32.5 RDW 15.7 Plt Count 495 H MPV 8.5 Neut % (Auto) 70.3 Lymph % (Auto) 23.0 [place] % (Auto) 4.5 Eos % (Auto) 1.4 Baso % (Auto) 0.8 Neut # (Auto) 6.4 Lymph # (Auto) 2.1 [place] # (Auto) 0.4 Eos # (Auto) 0.1 Baso # (Auto) 0.1 PT 10.4 INR 0.96 APTT 25.3 Fibrinogen 541 H Sodium 140 Potassium 4.0 Chloride 107 Carbon Dioxide 25 Anion Gap 12.0 BUN 10 Creatinine 0.70 Estimated Creat Clear 118 Estimated GFR 105 Est GFR ( Amer) 127 Glucose 86 Uric Acid 5.6 Calcium 9.4 Magnesium 6.3 H D 4.1 H Total Bilirubin 0.7 AST 24 ALT 32 Alkaline Phosphatase 93 Total Protein 7.2 Albumin 4.0 Globulin 3.2 Albumin/Globulin Ratio 1.3 Urine Protein Urine Creatinine Urine Microalbumin Microalb/Creat Ratio 10/13/23 14:25 WBC RBC Hgb Hct MCV MCH MCHC RDW Plt Count MPV Neut % (Auto) Lymph % (Auto) [place] % (Auto) Eos % (Auto) Baso % (Auto) Neut # (Auto) Lymph # (Auto) [place] # (Auto) Eos # (Auto) Baso # (Auto) PT INR APTT Fibrinogen Sodium Potassium Chloride Carbon Dioxide Anion Gap BUN Creatinine Estimated Creat Clear Estimated GFR Est GFR ( Amer) Glucose Uric Acid Calcium Magnesium Total Bilirubin AST ALT Alkaline Phosphatase Total Protein Albumin Globulin Albumin/Globulin Ratio Urine Protein 1+ Urine Creatinine 128 Urine Microalbumin 117.200 H Microalb/Creat Ratio 91.5 DS: Diagnosis Discharge Diagnosis (1) Gestational hypertension: Status: Acute Code(s): O13.9 - Gestational [-induced] hypertension without significant proteinuria, unspecified trimester Qualifiers: Trimester: unspecified trimester Qualified Code(s): O13.9 - Gestational [-induced] hypertension without significant proteinuria, unspecified trimester (2) delivery delivered: Status: Acute Code(s): O82 - Encounter for delivery without indication (3) Morbid obesity with body mass index (BMI) greater than or equal to 50: Status: Acute Code(s): E66.01 - Morbid (severe) obesity due to excess calories (4) History of gastric bypass: Status: Chronic Code(s): Z98.84 - Bariatric surgery status Problem details: gastric sleeve (5) History of pre-eclampsia in prior , currently : Status: Acute Code(s): O09.299 - Supervision of with other poor reproductive or obstetric history, unspecified trimester Meds Home Medications and Allergies Home Medications Medication Instructions Recorded Confirmed Type vits no.126-ferrous fum 1 tab PO DAILY 03/04/23 10/13/23 History 28 mg iron-folic acid 800 mcg tablet (Classic ) ferrous sulfate 325 mg (65 mg 325 mg PO DAILY #30 tabs 10/08/23 10/13/23 Rx iron) tablet,delayed release nystatin 100,000 unit/gram topical 1 applic topical BID PRN yeast 10/08/23 10/13/23 Rx powder infec #15 grams acetaminophen 500 mg tablet 500 mg PO Q6HP PRN Fever 10/14/23 10/14/23 History fluoxetine 20 mg capsule (Prozac) 20 mg PO DAILY #30 caps 10/14/23 Rx ibuprofen 800 mg tablet 800 mg PO Q8HP PRN Mild Pain 10/14/23 10/14/23 History (Scale Score 1-4) labetalol 200 mg tablet 200 mg PO BID #60 tabs 10/14/23 Rx sennosides 8.6 mg tablet (senna) 8.6 mg PO BIDP PRN Constipation 10/14/23 10/14/23 History simethicone 125 mg chewable tablet 125 mg PO DAILYP PRN GAS PAIN 10/14/23 10/14/23 History New Prescriptions to Start Prescriptions: fluoxetine [Prozac] Henrry Garcia labetalol Henrry Garcia Allergies Allergy/AdvReac Type Severity Reaction Status Date / Time No Known Allergies Allergy Verified 10/13/23 13:34 Discharge Plan Disposition Patient Disposition: Home, Self-Care Follow up Plan Prescriptions/Medication Reconciliation: New labetalol 200 mg Tablet 200 mg PO BID Qty: 60 1RF fluoxetine [Prozac] 20 mg capsule 20 mg PO DAILY Qty: 30 1RF Continued Classic 28 mg iron- 800 mcg tablet 1 tab PO DAILY ferrous sulfate 325 mg (65 mg iron) tablet,delayed release (DR/EC) 325 mg PO DAILY Qty: 30 3RF nystatin 100,000 unit/gram powder 1 applic topical BID PRN (Reason: yeast infec) Qty: 15 0RF sennosides [senna] 8.6 mg tablet 8.6 mg PO BIDP PRN (Reason: Constipation) Patient Comments: TAKE ONE TABLET BY MOUTH TWICE DAILY NEEDED FOR constipation simethicone 125 mg tablet,chewable 125 mg PO DAILYP PRN (Reason: GAS PAIN) Patient Comments: CHEW ONE TABLET BY MOUTH EVERY DAY NEEDED ibuprofen 800 mg tablet 800 mg PO Q8HP PRN (Reason: Mild Pain (Scale Score 1-4)) acetaminophen 500 mg tablet 500 mg PO Q6HP PRN (Reason: Fever) Discontinued nifedipine 30 mg tablet extended release 30 mg PO DAILY Patient Comments: TAKE 1 TABLET BY MOUTH DAILY Problem Reconciliation Problems Reviewed?: Yes Patient Discharge Instructions ACTIVITY: No heavy lifting DIET: continue same diet Providers Primary Care Provider: Hai Dickey Admit Provider: Maki Dupont Attending Provider: Maki Dupont
--- NOTE | 2023-10-14 17:13 | PC.NURSE ---
[facility], meds to beds here to deliver meds to patient
--- NOTE | 2023-10-14 17:40 | PC.NURSE ---
Pt leaving unit to DC home. Pt in WC accompanied by this nurse and . Pt is alert and oriented and states she is feeling better and ready to go home. Eduction given to patient on PP Depression and Preeclampsia. Patient verbalized understanding. Encouraged to call with needs or concerns.
--- NOTE | 2023-10-14 18:01 | PC.NURSE ---
All charting and care done under my supervision.
== END 2023-10-14 17:40 | disposition home or self-care (01) ==
LOC: OBOUT 10-14 07:32 → OB 10-14 07:32
PROVIDERS: Nurse Practitioner Obstetrics & Gynecology; Admitting Provider Obstetrics & Gynecology; PCP Family Medicine; Visit Provider Obstetrics & Gynecology
DX: O13.5 Gestational [pregnancy-induced] hypertension without significant proteinuria, complicating the puerperium (principal); E66.01 Morbid (severe) obesity due to excess calories; Z68.43 Body mass index [BMI] 50.0-59.9, adult; Z98.84 Bariatric surgery status; O99.845 Bariatric surgery status complicating the puerperium; O99.215 Obesity complicating the puerperium
CPT/HCPCS: 36415; 80053; 81002; 82043; 82570; 83735; 84550; 85025; 85384; 85610; 85730; 94761; G0283; G0378; J7120

== ENCOUNTER 2024-04-15 09:23 | Emergency (ER) | payer OTHER, SELFPAY ==
[2024-04-15 09:40] VITALS: BP 123/89; PULSE 72; RESP 19; TEMP 36.7; O2SAT 99; BMI 49.6
--- NOTE | 2024-04-15 09:56 | ED_ITS ---
Discharge Plan Disposition Patient Disposition: Home, Self-Care Condition: Good Prescriptions Prescriptions: New azithromycin [Zithromax Z-Aj] 250 mg tablet See Rx Instructions .ROUTE .COMPLEX 5 Days Qty: 6 0RF Rx Instructions: For 250 mg dose pack: take 500 mg today (day 1), then 250 mg for 4 days (days 2-5) Referrals Follow up/Referrals: Hai Dickey MD [Primary Care Provider] - See instructions Activity Restrictions/Add. Instructions Additional Instructions/Restrictions: *Monitor Temp, Over the counter Motrin or Tylenol as directed/as needed Tylenol every 4 hours and Motrin every 6 hours (as long as your family doctor has told you that you can take it) for fever or pain. and straight to ER if unable to lower temp less than 101.0 after medication given *Warm salt water gargles may help to soothe the throat *Throat Lozenges? *Warm fluids like tea with honey may help to soothe the throat? *Sleep elevated *Humidifier/Vaporizer Follow up IMMEDIATELY for new or worsening symptoms or no Noticeable improvement over the next 48-72 hours. 911 for difficulty breathing or swallowing Clinical Impressions Clinical Impression: Sinusitis, Bronchitis Instructions Patient Instructions: DI for Sinusitis, Acute Bronchitis Print Language Print Language: Maori Discharge ED Provider: Jennifer Ha [facility] [place] [place] HPI General Stated complaint: congestion, cough Mode of Arrival: Ambulatory Source of Information: Patient Limitations: No Limitations Time Seen by Provider: 04/15/24 09:56 Description of Symptoms (Recalled from Triage Doc. by RN): PATIENT C/O RUNNY NOSE AND COUGH X 1 WEEK HEENT Symptoms (Recalled from RN notes): Yes Resp Symptoms (Recalled from RN notes): Yes Skin Symptoms (Recalled from RN notes): No MS Symptoms (Recalled from RN notes): No Functional Status (Recalled from RN notes): WNL History of Present Illness Provider Complaint: Patient states for over a week she has been having sinus congestion and drainage and cough States feels like she may be trying to set up Bronchitis states that she is breast feeding Related Data Previous Rx's ?Medication ?Instructions ?Recorded azithromycin 250 mg tablet See Rx Instructions PO .COMPLEX 5 04/15/24 (Zithromax Z-Aj) days #6 tabs Allergies Allergy/AdvReac Type Severity Reaction Status Date / Time No Known Allergies Allergy Verified 11/18/23 10:20 Worker's Comp Is this a Worker's Comp case?: No [facility] Disclaimer: The information contained in this section may have been updated after the patient was seen, as this information can be updated by other users. Medical History (Updated 04/15/24 @ 10:02 by Jennifer Ha APRN) Hemorrhoids Gestational hypertension Screening for genetic disease carrier status History of pre-eclampsia in prior , currently Maternal obesity affecting , antepartum Morbid obesity with body mass index (BMI) greater than or equal to 50 Depression Anxiety Surgical History History of gastric bypass History of Family History Other No significant family history Social History Smoking Status: Current some day smoker alcohol intake: never substance use type: denies use current occupational status: employed ROS Obtained: Yes All systems reviewed & no additional complaints except as documented and Yes Systems reviewed as appropriate & no additional complaints except as documented Constitutional Constitutional: Reports system reviewed and no additional complaints, except as documented and Reports as per HPI ENT Ears, Nose, Mouth, and Throat: Reports system reviewed and no additional complaints, except as documented, Reports as per HPI, Reports sinus pain and Reports sinus pressure Cardiovascular Cardiovascular: Reports system reviewed and no additional complaints, except as documented and Reports as per HPI Respiratory Respiratory: Reports system reviewed and no additional complaints, except as documented, Reports as per HPI, Reports chest congestion and Reports cough Gastrointestinal Gastrointestingal: Reports system reviewed and no additional complaints, except as documented and as per HPI Physical Exam General General appearance: alert and in no apparent distress Expanded ENT Exam Nose exam: Present sinus tenderness Throat exam: Present other (Pharyngeal erthema noted with PND) Respiratory Respiratory exam: Present normal lung sounds bilaterally; Absent respiratory distress or wheezes Cardiovascular Cardiovascular exam: Present regular rate, normal rhythm and normal heart sounds Neurological Exam Neurological exam: Present alert, oriented X3 and normal gait Medical Decision Making Medical Records Screening: Per USPSTF and CDC recommendations, given the prevalence of disease in our region, it is our hospital?s policy to screen for HIV and viral Hepatitis for all patients aged 18 and over and those with ongoing risk factors. Bong Inquiry Pt receiving controlled substance: No Bong was queried for this patient: No Vital Signs: 04/15/24 09:40 Temperature 98.1 F Temperature Source Oral Pulse Rate [Left Brachial] 72 Respiratory Rate 19 Blood Pressure [Left Arm] 123/89 Blood Pressure Mean [Left Arm] 100 Blood Pressure Source [Left Arm] Automatic Cuff Blood Pressure Position [Left Arm] Sitting 02 Sat by Pulse Oximetry 99 Oxygen Delivery Method Room Air
[2024-04-15 10:03] VITALS: BP 123/89; PULSE 72; RESP 19; TEMP 36.7; O2SAT 99
== END 2024-04-15 10:04 | disposition home or self-care (01) ==
PROVIDERS: Emergency Provider Nurse Practitioner; PCP Family Medicine
DX: J20.9 Acute bronchitis, unspecified (principal); J01.90 Acute sinusitis, unspecified
CPT/HCPCS: 99213; G0381

== ENCOUNTER 2024-07-17 11:48 | Outpatient (CLI) | payer BC, SELFPAY ==
[2024-07-17 20:59] LABS: Coronavirus 19, PCR Not Detected (NotDetected); Influenza A, PCR Not Detected (NotDetected); Influenza B, PCR Not Detected (NotDetected)
== END 2024-07-17 23:59 | disposition home or self-care (01) ==
LOC: LAB.DROPOF 07-19 11:49
PROVIDERS: PCP Family Medicine; Visit Provider Nurse Practitioner
DX: R52 Pain, unspecified (principal); J06.9 Acute upper respiratory infection, unspecified; Z72.0 Tobacco use
CPT/HCPCS: 87636

== ENCOUNTER 2024-10-11 18:24 | Outpatient (CLI) | payer BC, SELFPAY ==
[2024-10-11 19:41] LABS: Coronavirus 19, PCR Not Detected (NotDetected); Influenza A, PCR Not Detected (NotDetected); Influenza B, PCR Not Detected (NotDetected)
== END 2024-10-11 23:59 | disposition home or self-care (01) ==
LOC: LAB.DROPOF 21:49
PROVIDERS: PCP Student in an Organized Health Care Education/Training Program; Visit Provider Student in an Organized Health Care Education/Training Program
DX: R52 Pain, unspecified (principal); J02.9 Acute pharyngitis, unspecified
CPT/HCPCS: 87636

== ENCOUNTER 2025-04-23 16:09 | Outpatient (CLI) | payer BC, SELFPAY | END 2025-04-23 23:59 | disposition home or self-care (01) | PROVIDERS: PCP Family Medicine; Visit Provider Nurse Practitioner Obstetrics & Gynecology | DX: Z32.01 Encounter for pregnancy test, result positive (principal) | CPT/HCPCS: 36415; 84144; 84702 ==

== ENCOUNTER 2025-05-07 11:02 | Outpatient (CLI) | payer BC, SELFPAY ==
--- OUTSIDE RECORDS SUMMARY | 2024-08-02 04:30 | XMS_ITS ---
[facility] [address] [facility] [address] [facility] [address] [place] [id number] Care Team Providers Care Earth Science Faculty Member Name Role Phone Hallie Pringle Primary Care Provider Greta Conde Unavailable [phone] Dona Mulligan Unavailable [phone] Allergies No Known Allergies Reason For Referral Diagnosis 1 Atypical pigmented s kin lesion (L81.9) [facility] Referring Provider First Name Dona Referring Provider Last Name Ese Referring Provider Speciality Physician Cd Mixer Helper Referred Provider Dermatology, . Referred Provider Specialty Dermatology General Notes Dona Mulligan 08/02 9:56:56 AM > Needs a referral to Valentina OBRIEN Brynn 08/02/2024 10:49:29 AM > sent referral via [employer] website Referral Priority Routine REASON FOR VISIT look at birthmarks changing color Vital Signs Weight 282 lbs 08/02/2024 Blood pressure systolic 122 mm Hg 08/03/19 25 Blood pressure diastolic 80 mm Hg 025 Heart Rate 97 /min 08/02/2024 Height 67 in 08/02/2024 BMI 44.16 kg/m2 08/02/2024 Encounters Encounter Location Date Provider Diagnosis [facility] [address] [facility] [address] [place] [id number] 08/02/2024 Dona Mulligan Atypical pigmented s kin lesion L81.9 Assessments Encounter Date Diagnosis (ICD Code) Assessment Notes Treatment Notes Treatment Clinical Notes Section Notes 08/02/2024 Atypical pigmented skin lesion (ICD-10 - L81.9) Plan Of Treatment Referrals Referral Date Details 08/02/2024 08/02/2024, . Dermat ology Next Appt Details Follow Up: with dermatology, Reason: Provider Name:Hai Barboza ry, 05/10/2025 10:00:00 AM, [address], [address], [place], [phone], Progress Notes * REYES PALOMOB:2000 ([age] yo F)Acc No.[id number]:08/02/2024 Progress Notes Patient: EDISON SANCHEZ Provider: ATIF Sapp :2000 A ge:23 Y S ex:Female Date:08/02/2024 Phone: Address:[facility] [address], [place] Pcp:Hallie Pringle Subjective: * Chief Complaints: * 1 . Look at birthmarks changing color. * HPI: D ermatology: 23 year old female presents with c/o mole P t complains of multiple moles that she has had for years. Pt states she has noticed the moles changing color over time. Pt denies pain or irritation with moles . * ROS: C ARDIOLOGY: no D izziness. n o C hest pain. G ASTROENTEROLOGY: no N ausea. n o V omiting. U ROLOGY: no D ifficulty urinating. n o B lood in urine. * Medical History: M edical History Verified. * Surgical History: b ilateral ear tubes , tonsils removed 04/30/2010, Gastric Sleeve at [facility] 11/2019. * Hospitalization/Major Diagno stic Procedure: D enies Past Hospitalization. * Family History: F ather: alive 50 yrs. M other: alive 48 yrs. 1 brother(s) - healthy. . * Social History: C URRENT TOBACCO USE S moking Status: Patient does NOT smoke. H ome smoke detector use: yes. Marital Status: Single. Past smoking status: no, Smoking status: Does not smoke. * Medications: D iscontinued Tamiflu 75 MG Capsule 1 capsule Orally Twice a day , Discontinued Gummies , Discontinued Aspirin 81 81 MG Tablet Delayed Release 1 tablet Orally Once a day , Discontinued Nexplanon 68 MG Implant 1 ea subcutaneously once , Discontinued DULoxetine HCl 60 MG Capsule Delayed Release Particles 1 cap(s) orally once a day , Medication List reviewed and reconciled with the patient * Allergies: N .K.D.A. Objective: * Vitals: W t:282, Temp:98.0, BP:122/80, HR:97, Nurse:paddy, Ht: 67, BMI:44.16. * Examination: G eneral Examination: General Appearance: N AD. C hest: n ormal shape and expansion. H eart: R SR. L ungs: c lear to auscultation. S kin: multiple skin lesions on the face, neck and chest that have enlarged. Assessment: * Assessment: 1. A typical pigmented skin lesion - L81.9 (Primary) Plan: * Treatment: * Procedure Codes: 3 074F SYST BP LT 130 MM HG, 3079F DIAST BP 80-89 MM HG * [facility] * Images: Billing Information: * Visit Code: 44190 Office Visit, Est Pt., Level 3. * Procedure Codes: 3074F SYST BP LT 130 MM HG. 3079F DIAST BP 80-89 MM HG. * Electronic signature of ATIF Cormier on 05/07/2025 at 11:11 AM EST Sign off status: Pending * Provider: ATIF Sapp Date: 0 08/02/2024 Generated for Nichelle harden/Nikita/eTransmitting on: 1 07/08/2024 11:11 AM EST History and Physical Notes * HPI (History of Present Illness) Category Sub-Category Detail Notes Category Not es Dermatology mole Pt complains of multiple moles that she has had for years. Pt states she has noticed the moles changing color over time. Pt denies pain or irritation with moles Examination Category Sub-Category Detail Notes Category Not es General Examination Heart: RSR Lungs: clear to auscultatio n General Appearance: NAD Skin: multiple skin lesion s on the face, neck and chest that have enlarged Chest: normal shape and exp ansion Consultation Request Notes Referral Date Referring Provider Referred Provider Not es 08/02/2024 Dona Mulligan Dermatology, .
--- OUTSIDE RECORDS SUMMARY | 2024-09-12 05:30 | XMS_ITS ---
Author Organization [facility] Address [address] [facility] [address] [place] [phone] Care Team Providers Care Veneer Sorter Name Role Phone Hallie Pringle Primary Care Provider Greta Conde Unavailable [phone] Hai Dickey Unavailable [phone] Allergies No Known Allergies REASON FOR VISIT check up Medications Medication SIG (Take, Route, Frequency, Duration) Notes Start Date End Date Status amLODIPine Besylate 5 MG 1 tablet Orally Once a day; Duration: 30 days 09/12/2024 Active Problems Problem Type SNOMED Code ICD Code Onset Dates Problem Status W/U Status Risk Notes Problem Essential hypertension (66690143) Essential hypertension (I10) Active confirmed Vital Signs Weight 289 lbs 09/12/2024 Blood pressure systolic 152 mm Hg 09/13/19 25 Blood pressure diastolic 84 mm Hg 025 Heart Rate 68 /min 09/12/2024 Height 67 in 09/12/2024 BMI 45.26 kg/m2 09/12/2024 Encounters Encounter Location Date Provider Diagnosis [facility] [address] [facility] [address] [place] [phone] 09/12/2024 Hai Keli Essential hypertensi on I10 and Morbid obesity E66.01 Assessments Encounter Date Diagnosis (ICD Code) Assessment Notes Treatment Notes Treatment Clinical Notes Section Notes 09/12/2024 Essential hypertension (ICD-10 - I10) 09/12/2024 Morbid obesity (ICD-10 - E66.01) diet & exercise reviewed with patient Plan Of Treatment Medication Medication Name Sig Start Date Stop Date Notes amLODIPine Besylate 5 MG 1 tablet Orally Once a day; Duration: 30 days 09/12/2024 Treatment Notes Assessment Notes Morbid obesity diet & exercise revi ewed with patient Next Appt Details Follow Up: 3 or 4 Weeks, [place] son: Provider Name:Hai Barboza ry, 05/10/2025 10:00:00 AM, [address], [address], [place], [phone], Progress Notes * REYES PALOMOB:2000 ([age] yo F)Acc No.[id number]:09/12/2024 Progress Notes Patient: EDISON SANCHEZ Provider: Germain Dickey M.D. :2000 A ge:23 Y S ex:Female Date:09/12/2024 Phone: Address:[facility] [address], [place] Pcp:Hallie Pringle Subjective: * Chief Complaints: * 1 . Check up. * HPI: C ardiology: 23 year old female presents with c/o Blood Pressure Elevated?Pt complains of post- pre-eclampsia. Pt states she does not feel like her bp has gone back to normal since having most recent baby 11 months ago. * ROS: D ERMATOLOGY: no R tiffany. n o H jarocho. G ASTROENTEROLOGY: no N ausea. n o V omiting. n o D iarrhea.? U ROLOGY: no D ifficulty urinating. n o B lood in urine. * Medical History: M edical History Verified. * Surgical History: b ilateral ear tubes , tonsils removed 04/30/2010, Gastric Sleeve at [facility] 11/2019. * Family History: F ather: alive 50 yrs. M other: alive 48 yrs. 1 brother(s) - healthy. . * Social History: C URRENT TOBACCO USE S moking Status: Patient does NOT smoke. H ome smoke detector use: yes. Marital Status: Single. Past smoking status: no, Smoking status: Does not smoke. * Medications: N one * Allergies: N .K.D.A. Objective: * Vitals: W t: 289, Temp: 98.0, BP: 152/84, HR: 68, Nurse: paddy, Ht: 67, BMI:45.26. * Examination: C ardiology: General Appearance: p leasant, NAD. H EENT: u nremarkable. H eart sounds: R RR, normal S1, S2. L ungs: c lear, no rales or wheezes.? Assessment: * Assessment: 1. E ssential hypertension - I10 (Primary) 2 . M orbid obesity - E66.01? Plan: * Treatment: 2. M orbid obesity Notes: diet & exercise reviewed with patient * Procedure Codes: 3 077F SYST BP = 140 MM HG6 IT, 3079F DIAST BP 80-89 MM HG * Follow Up: 3 or 4 Weeks * Images: Billing Information: * Visit Code: 12206 Office Visit, Est Pt., Level 3. * Procedure Codes: 3077F SYST BP = 140 MM HG6 IT. 3079F DIAST BP 80-89 MM HG. * Electronic signature of Lucy Dickey MD on 05/07/2025 at 11:12 AM EST Sign off status: Pending * Provider: Germain Dickey M.D. Date: 0 09/12/2024 Generated for Nichelle harden/Nikita/Ririitting on: 1 07/08/2024 11:12 AM EST History and Physical Notes * HPI (History of Present Illness) Category Sub-Category Detail Notes Category Not es Cardiology Blood Pressure Elevated Pt compl ains of post- pre-eclampsia. Pt states she does not feel like her bp has gone back to normal since having most recent baby 11 months ago Examination Category Sub-Category Detail Notes Category Not es Cardiology Lungs: clear, no rales or wheezes HEENT: unremarkable Heart sounds: RRR, normal S1, S2 General Appearance: pleasant, NAD
--- OUTSIDE RECORDS SUMMARY | 2024-09-27 05:45 | XMS_ITS ---
Author Organization [facility] Address [address] [place] [id number] Care Team Providers Care Locomotive Repairer Diesel Name Role Phone Hallie Pringle Primary Care Provider Greta Conde Unavailable [phone] Hai Dickey Unavailable [phone] Allergies No Known Allergies REASON FOR VISIT 3 Week Follow Up Medications Medication SIG (Take, Route, Frequency, Duration) Notes Start Date End Date Status amLODIPine Besylate 5 MG TAKE 1 TABLET B Y MOUTH DAILY; Duration: 90 Active Metoprolol Succinate ER 50 MG 1 tablet Orally Once a day; Duration: 30 day(s) 09/27/2024 Active Vital Signs Weight 285.4 lbs 09/27/2024 Blood pressure systolic 140 mm Hg 09/28/19 25 Blood pressure diastolic 90 mm Hg 025 Heart Rate 70 /min 09/27/2024 Height 67 in 09/27/2024 BMI 44.7 kg/m2 09/27/2024 Encounters Encounter Location Date Provider Diagnosis Heather [address] [facility] [address] [place] [id number] 09/27/2024 Hai Dickey Essential hypertensi on I10 and Morbid obesity E66.01 Assessments Encounter Date Diagnosis (ICD Code) Assessment Notes Treatment Notes Treatment Clinical Notes Section Notes 09/27/2024 Essential hypertension (ICD-10 - I10) Blood pressure journal 09/27/2024 Morbid obesity (ICD-10 - E66.01) Medication treatment discussed. Will request PA for meds Plan Of Treatment Medication Medication Name Sig Start Date Stop Date Notes Metoprolol Succinate ER 50 MG 1 tablet O rally Once a day; Duration: 30 day(s) 09/27/2024 Treatment Notes Assessment Notes Essential hypertension Blood pressure jennifer urnal Morbid obesity Medication treatment discussed. Will request PA for meds Next Appt Details Follow Up: 6 Weeks fasting, Reason: Provider Name:Hai Barboza ry, 05/10/2025 10:00:00 AM, [address], [place], [place], [phone], Progress Notes * REYES PALOMOB:2000 ([age] yo F)Acc No.[id number]:09/27/2024 Progress Notes Patient: EDISON SANCHEZ Provider: Germain Dickey M.D. :2000 A ge:23 Y S ex:Female Date:09/27/2024 Phone: Address:[facility] [place] [address], [id number] Pcp:Hallie Pringle Subjective: * Chief Complaints: * 1 . 3 Week Follow Up. * HPI: C ardiology: 23 year old female presents with c/o Blood Pressure Elevated?Pt here for 3 week f/u on hypertension, pt started on Amlodipine 5mg 09/12. Pt states that she has been getting headaches towards the end of her work day so she checks her bp and it has continued to be elevated. * ROS: D ERMATOLOGY: no R tiffany. n o H jarocho. G ASTROENTEROLOGY: no N ausea. n o V omiting. U ROLOGY: no D ifficulty urinating. n o B lood in urine. * Medical History: M edical History Verified. * Surgical History: B ilateral Ear Tubes , Tonsilectomy 04/30/2010, Gastric Sleeve at [facility] 11/2019. * Hospitalization/Major Diagno stic Procedure: D enies Past Hospitalization. * Family History: F ather: alive 50 yrs. M other: alive 48 yrs. 1 brother(s) - healthy. . * Social History: C URRENT TOBACCO USE S moking Status: Patient does NOT smoke. H ome smoke detector use: yes. Marital Status: Single. Past smoking status: no, Smoking status: Does not smoke. * Medications: T aking amLODIPine Besylate 5 MG Tablet TAKE 1 TABLET BY MOUTH DAILY , Medication List reviewed and reconciled with the patient * Allergies: N .K.D.A. Objective: * Vitals: W t: 285.4, Temp: 97.8, BP: 140/90, HR: 70, Nurse: paddy, Ht: 67, BMI:44.7. * Examination: C ardiology: General Appearance: p leasant, NAD. H eart sounds: R RR, normal S1, S2. L ungs: c lear, no rales or wheezes. Assessment: * Assessment: 1. E ssential hypertension - I10 (Primary) 2 . M orbid obesity - E66.01? Plan: * Treatment: 2. M orbid obesity Notes: Medication treatment discussed. Will request PA for meds * Procedure Codes: 3 077F SYST BP = 140 MM HG6 IT, 3080F DIAST BP = 90 MM HG * Follow Up: 6 Weeks fasting * Images: Billing Information: * Visit Code: 53513 Office Visit, Est Pt., Level 3. * Procedure Codes: 3077F SYST BP = 140 MM HG6 IT. 3080F DIAST BP = 90 MM HG. * Electronic signature of Lucy Dickey MD on 05/07/2025 at 11:12 AM EST Sign off status: Pending * Provider: Germain Dickey M.D. Date: 0 09/27/2024 Generated for Nichelle harden/Nikita/Ririitting on: 1 07/08/2024 11:12 AM EST History and Physical Notes * HPI (History of Present Illness) Category Sub-Category Detail Notes Category Not es Cardiology Blood Pressure Elevated Pt here for 3 week f/u on hypertension, pt started on Amlodipine 5mg 09/12. Pt states that she has been getting headaches towards the end of her work day so she checks her bp and it has continued to be elevated Examination Category Sub-Category Detail Notes Category Not es Cardiology Lungs: clear, no rales or wheezes Heart sounds: RRR, normal S1, S2 General Appearance: pleasant, NAD
--- OUTSIDE RECORDS SUMMARY | 2024-11-08 05:00 | XMS_ITS ---
Author Organization [facility] Address [address] [facility] [address] [place] [id number] Care Team Providers Care Field Return Repairer Name Role Phone Hallie Pringle Primary Care Provider [phone] Greta Conde Unavailable [phone] Bath SpringsHai Unavailable [phone] Allergies No Known Allergies Results Component Value Reference Range Notes P-Basic Metabolic Panel (BMP ) Reviewed date:11/09/2024 09:20:45 AM Interpretation:Normal Performing Lab: Notes/Report: Test performed by [facility] [address] [place], [place] [address] , [address], [place] [address] Jam De La O MD, Client Services Director CLIA: [id number] Sodium 141 135-145 mmol/L Potassium 5.0 3.5-5.3 mmol/L Chloride 105 97-108 mmol/L CO2 26 22-32 mmol/L Glucose 89 65-99 mg/dL BUN 12 6-20 mg/dL Creatinine 0.75 0.50-1.00 mg/dL Calcium 9.5 8.6-10.4 mg/dL eGFR by Creatinine 114 >59 mL/min/1.73m2 P-Lipid Panel Reviewed date:11/09/2024 09:20:45 AM Interpretation:Normal Performing Lab: Notes/Report: Test performed by [facility] [address] [place], [place] [address] , [address], [place] [address] Jam De La O MD, Client Services Director CLIA: [id number] Cholesterol 143 <200 mg/dL Triglycerides 39 <150 mg/dL HDL Cholesterol 59 >39 mg/dL Cholesterol / HDL Ratio 2.42 0.00-4.44 Ratio Non-HDL Cholesterol 84 <130 mg/dL LDL Cholesterol (Calculation) 76 <130 mg/dL LDL Cholesterol Levels* Less than 100 mg/dL Optimal 100 to 129 mg/dL Near Optimal/ Above Optimal 130 to 159 mg/dL Borderline High 160 to 189 mg/dL High 190 mg/dL and above Very High * Categories as recommended by the 2004 ATPIII guidelines LDL/HDL Ratio 1.3 <3.3 Ratio LDL Cholesterol Patient History Test Date: 11/08/2024 LDL Results: 76 Units: mg/dL % Change: - P-Microalbumin/Creatinine, R andom Urine Sample Reviewed date:11/09/2024 09:20:45 AM Interpretation:Normal Performing Lab: Notes/Report: Test performed by [facility] [place] [address] Jam De La O MD, Client Services Director CLIA: [id number] Albumin/Creatinine Ratio, Urine <5.74 0-30 ug/m g Microalbumin, Urine, Random <0.3 Creatinine, Urine 52.2 P-Uric Acid Reviewed date:11/09/2024 09:20:45 AM Interpretation:Normal Performing Lab: Notes/Report: Test performed by [facility] [place], [place] [address], [place] [address] Jam De La O MD, Client Services Director CLIA: [id number] Uric Acid 4.6 2.4-7.0 mg/dL REASON FOR VISIT 6 week f/u *fasting labs* Medications Medication SIG (Take, Route, Frequency, Duration) Notes Start Date End Date Status Zepbound 2.5 MG/0.5ML 0.5 mL Subcutaneous weekly 0 11/08/2024 Active amLODIPine Besylate 5 MG TAKE 1 TABLET B Y MOUTH DAILY Active Metoprolol Succinate ER 50 MG TAKE 1 TABLET BY MOUTH DAILY Active Vital Signs Weight 290 lbs 11/08/2024 Blood pressure systolic 132 mm Hg 11/09/19 25 Blood pressure diastolic 88 mm Hg 025 Heart Rate 68 /min 11/08/2024 Height 67 in 11/08/2024 BMI 45.42 kg/m2 11/08/2024 Encounters Encounter Location Date Provider Diagnosis [facility] [address] [place] [id number] 11/08/2024 Hai Dickey Essential hypertensi on I10 and Morbid obesity E66.01 Assessments Encounter Date Diagnosis (ICD Code) Assessment Notes Treatment Notes Treatment Clinical Notes Section Notes 11/08/2024 Essential hypertension (ICD-10 - I10) 11/08/2024 Morbid obesity (ICD-10 - E66.01) Plan Of Treatment Medication Medication Name Sig Start Date Stop Date Notes Zepbound 2.5 MG/0.5ML 0.5 mL Subcutaneous weekly amLODIPine Besylate 5 MG TAKE 1 TABLET BY MOUTH DAILY Metoprolol Succinate ER 50 MG TAKE 1 TABLET BY MOUTH DAILY Next Appt Details Follow Up: 6 Months, Reason: Provider Name:Hai Barboza ry, 05/10/2025 10:00:00 AM, [address], [address], [place], [id number], Progress Notes * RAFA PALOMO:2000 ([age] yo F)Acc No.[id number]:11/08/2024 Progress Notes Patient: EDISON SANCHEZ Provider: Germain Dickey M.D. :2000 A ge:23 Y S ex:Female Date:11/08/2024 Phone: Address:[address] [place] [address] [place], [place], [id number] Pcp:Hallie Pringle Subjective: * Chief Complaints: * 1 . 6 week f/u *fasting labs*. * HPI: C ardiology: 23 year old female presents with c/o BloodPressure at Home P t is here for 6 week f/u on Hypertension. Pt started on Metoprolol ER 50mg in addition to Amlodipine 5mg on 09/27. * ROS: D ERMATOLOGY: no R tiffany. n o H jarocho. G ASTROENTEROLOGY: no N ausea. n o V omiting. U ROLOGY: no D ifficulty urinating. n o B lood in urine. * Medical History: H ypertension. * Surgical History: B ilateral Ear Tubes , Tonsilectomy 04/30/2010, Gastric Sleeve at [facility] 11/2019. * Hospitalization/Major Diagno stic Procedure: D enies Past Hospitalization. * Family History: F ather: alive 50 yrs. M other: alive 48 yrs. 1 brother(s) - healthy. . * Social History: C URRENT TOBACCO USE: No S moking Status: Patient does NOT smoke. H ome smoke detector use: yes. Marital Status: . Past smoking status: never smoked. * Medications: T aking Metoprolol Succinate ER 50 MG Tablet Extended Release 24 Hour TAKE 1 TABLET BY MOUTH DAILY , Taking amLODIPine Besylate 5 MG Tablet TAKE 1 TABLET BY MOUTH DAILY , Discontinued Zepbound 2.5 MG/0.5ML Solution Auto-injector 0.5 mL Subcutaneous once weekly , Medication List reviewed and reconciled with the patient * Allergies: N .K.D.A. Objective: * Vitals: W t: 290, Temp: 98.4, BP: 132/88, HR: 68, Nurse: paddy, Ht: 67, BMI:45.42. * Examination: C ardiology: General Appearance: p leasant, NAD. H eart sounds: R RR, normal S1, S2. L ungs: c lear, no rales or wheezes. Assessment: * Assessment: 1. E ssential hypertension - I10 (Primary) 2 . M orbid obesity - E66.01? Plan: * Treatment: Value Reference Range B UN 12 6-20 - mg/dL * C alcium 9.5 8.6-10.4 - mg/dL * C hloride 105 97-108 - mmol/L * C O2 26 22-32 - mmol/L * C reatinine 0.75 0.50-1.00 - mg/dL * G lucose 89 65-99 - mg/dL * P otassium 5.0 3.5-5.3 - mmol/L * S odium 141 135-145 - mmol/L * e GFR by Creatinine 114 >59 - mL/min/1.73m2 * Nirmala Hernández 11/09/2024 09:2 0:33 AM EDT > Patient informed of normal results. ?LAB: P-Lipid Panel (Collection Date & Time - 11/08/2024 09:56 AM)?Normal* Value Reference Range C holesterol / HDL Ratio 2.42 0.00-4.44 - Ratio * C holesterol 143 <200 - mg/dL * H DL Cholesterol 59 >39 - mg/dL * L DL Cholesterol (Calculation) 76 <130 - mg/d L * L DL/HDL Ratio 1.3 <3.3 - Ratio * N on-HDL Cholesterol 84 <130 - mg/dL * T riglycerides 39 <150 - mg/dL * Nirmala Hernández 11/09/2024 09:2 0:33 AM EDT > Patient informed of normal results. ?LAB: P-Microalbumin/Creatinine, Random Urine Sample (Collection Date & Time - 11/08/2024 09:56 AM)?Normal* Value Reference Range A lbumin/Creatinine Ratio, Urine <5.74 0-30 - ug /mg * C reatinine, Urine 52.2 - mg/dL * M icroalbumin, Urine, Random <0.3 - mg/dL * Nirmala Hernández 11/09/2024 09:2 0:33 AM EDT > Patient informed of normal results. ?LAB: P-Uric Acid (Collection Date & Time - 11/08/2024 09:56 AM)?Normal* Value Reference Range U marie Acid 4.6 2.4-7.0 - mg/dL * Nirmala Hernández 11/09/2024 09:2 0:33 AM EDT > Patient informed of normal results. 2.?Morbid obesity? Start Zepbound Solution, 2.5 MG/0.5ML, 0.5 mL, Subcutaneous, weekly, 2 mL, Refills 0.?? * Procedure Codes: 1 036F TOBACCO NON-USER, G8950 PREHTN/HTN BP DOC INDCD F/U DOC, G8752 MOST RECENT SYSTOLIC BP < 140MM HG, G8754 MOST RECENT DIASTOLIC BP < 90MM HG * Follow Up: 6 Months * Images: Billing Information: * Visit Code: 33084 Office Visit, Est Pt., Level 3. * Procedure Codes: 1036F TOBACCO NON-USER. G8950 PREHTN/HTN BP DOC INDCD F/U DOC. G8752 MOST RECENT SYSTOLIC BP < 140MM HG. G8754 MOST RECENT DIASTOLIC BP < 90MM HG. * Electronic signature of Lucy Dickey MD on 05/07/2025 at 11:12 AM EST Sign off status: Pending * Provider: Germain Dickey M.D. Date: 0 11/08/2024 Generated for Nichelle harden/Nikita/eTransmitting on: 1 07/08/2024 11:12 AM EST History and Physical Notes * HPI (History of Present Illness) Category Sub-Category Detail Notes Category Not es Cardiology BloodPressure at Home Pt is here for 6 week f/u on Hypertension. Pt started on Metoprolol ER 50mg in addition to Amlodipine 5mg on 09/27 Examination Category Sub-Category Detail Notes Category Not es Cardiology Lungs: clear, no rales or wheezes Heart sounds: RRR, normal S1, S2 General Appearance: pleasant, NAD
--- OUTSIDE RECORDS SUMMARY | 2025-05-07 11:13 | XMS_ITS | Patient Health Record ---
Author Organization [facility] Address [address] [facility] [address] [place] [id number] Care Team Providers Care Biller Name Role Phone Hallie Pringle Primary Care Provider [phone] Greta Conde Unavailable [phone] AmesHai vides Unavailable [phone] CrowDona alves Unavailable [phone] Allergies No Known Allergies Results Component Value Reference Range Notes P-Basic Metabolic Panel (BMP ) Reviewed date:11/09/2024 09:20:45 AM Interpretation:Normal Performing Lab: Notes/Report: Test performed by [facility] [address] [place], [place] [address] [place] , [address], [place] [address] Jam De La O MD, Zipper Setter CLIA: [id number] Sodium 141 135-145 mmol/L Potassium 5.0 3.5-5.3 mmol/L Chloride 105 97-108 mmol/L CO2 26 22-32 mmol/L Glucose 89 65-99 mg/dL BUN 12 6-20 mg/dL Creatinine 0.75 0.50-1.00 mg/dL Calcium 9.5 8.6-10.4 mg/dL eGFR by Creatinine 114 >59 mL/min/1.73m2 P-Lipid Panel Reviewed date:11/09/2024 09:20:45 AM Interpretation:Normal Performing Lab: Notes/Report: Test performed by [facility] [address] [place], [place] [address], [address], [place] [address] Jam De La O MD, Zipper Setter CLIA: [id number] Cholesterol 143 <200 mg/dL Triglycerides 39 <150 [...] Interpretation:Normal Performing Lab: Notes/Report: Test performed by [facility] [address] [place], [place] [address] [place] , [place] [address] Jam De La O MD, Zipper Setter CLIA: [id number] Albumin/Creatinine Ratio, Urine <5.74 0-30 ug/m g Microalbumin, Urine, Random <0.3 Creatinine, Urine 52.2 P-Uric Acid Reviewed date:11/09/2024 09:20:45 AM Interpretation:Normal Performing Lab: Notes/Report: Test performed by [facility] [address] [place] [address] , [address], [place] [address] Jam De La O MD, Zipper Setter CLIA: [id number] Uric Acid 4.6 2.4-7.0 mg/dL Reason For Referral Diagnosis 1 Atypical pigmented s kin lesion (L81.9) Referral Organization [facility] Referring Provider First Name Dona Referring Provider Last Name Ese Referring Provider Speciality Physician Banking Representative Referred Provider Dermatology, . Referred Provider Specialty Dermatology General Notes Dona Mulligan 08/02 9:56:56 AM > Needs a referral to Valentina OBRIEN Brynn 08/02/2024 10:49:29 AM > sent referral via 911 View website Referral Priority Routine Medications Medication SIG (Take, Route, Frequency, Duration) Notes Start Date End Date Status Zepbound 2.5 MG/0.5ML 0.5 mL Subcutaneous weekly 0 11/08/2024 Active Metoprolol Succinate ER 50 MG 1 tablet Orally Once a day; Duration: 90 days Active amLODIPine Besylate 5 MG 1 tablet Orally Once a day; Duration: 30 days Active Immunizations Vaccine Route Administration Date Status Comme nts Fluzone PF Quad (6-35 months) Unknown 02/15/2020 Administered Hep A- Pediatric IM Intramuscular 07/20/2017 Administered Hep A- Pediatric IM Intramuscular 01/09/2018 Administered IPV IM Intramuscular 03/18/2005 Administered Menactra IM Intramuscular 12/27/2011 Administered Menactra IM Intramuscular 07/20/2017 Administered MMR SC Subcutaneous 03/18/2005 Administered ppd SC Subcutaneous 01/09/2018 Administered ppd SC Subcutaneous 02/17/2018 Administered ppd ID Intradermal 03/14/2018 Administered ppd ID Intradermal 03/21/2018 Administered 03/27/18- patient returned to office too late for reading. Testing will need to be repeated. ppd ID Intradermal 12/22/2020 Administered Tetanus Dtap-Daptacel (under 7yrs) IM Intramuscular 03/18/2005 Administered Tetanus Tdap-Adacel (over 7yrs) IM Intramuscular 12/27/2011 Administered Tetanus Tdap-Adacel (over 7yrs) Unknown 05/21/2022 Administered Varivax IM Intramuscular 12/27/2011 Administered Problems Problem Type SNOMED Code ICD Code Onset Dates Problem Status W/U Status Risk Notes Problem Essential hypertension (02194107) Essential hypertension (I10) Active confirmed Problem Morbid obesity (638876735) Morbid obesity (E66.01) Active confirmed Problem Mixed anxiety and depressive disorder (766434000) Depression with anxiety (F41.8) Active confirmed Problem Medial epicondylitis of right elbow (530890716196928) Medial epicondylitis of right elbow (M77.01) Active confirmed Problem Depressive disorder (95126689) Depressive disorder (F32.9) Active confirmed Vital Signs Heart Rate 68 /min 11/08/2024 Blood pressure diastolic 88 mm Hg 11/08/2024 Height 67 in 11/08/2024 Blood pressure systolic 132 mm Hg 11/08/2024 Weight 290 lbs 11/08/2024 BMI 45.42 kg/m2 11/08/2024 Encounters Encounter Location Date Provider Diagnosis [facility] [address] [place], [place] [id number] 08/02/2024 Dona Pappasjoselyn Atypical pigmented s kin lesion L81.9 [facility] [address] [facility] [address] [place], [place] [id number] 09/12/2024 Hai Ames Essential hypertensi on I10 and Morbid obesity E66.01 [facility] [address] [place], [place] [id number] 09/27/2024 Hai Ames Essential hypertensi on I10 and Morbid obesity E66.01 [facility] [address] [place], [place] [id number] 11/08/2024 Hai Ames Essential hypertensi on I10 and Morbid obesity E66.01 [facility] [address] [place] [id number] 09/27/2024 Hai Ames [facility] [address] [place] [id number] 10/01/2024 R Suresh Yary [facility] [address] [place], [place] [id number] 10/10/2024 R Suresh Yary [facility] [address] [place], [place] [id number] 02/04/2025 R Suresh Yary Essential hypertensi on I10 [facility] [address] [place] [id number] 04/11/2025 Hallie Pringle Essential hypertensi on I10 Assessments Encounter Date Diagnosis (ICD Code) Assessment Notes Treatment Notes Treatment Clinical Notes Section Notes 08/02/2024 Atypical pigmented skin lesion (ICD-10 - L81.9) 09/12/2024 Essential hypertension (ICD-10 - I10) 09/12/2024 Morbid obesity (ICD-10 - E66.01) diet & exercise reviewed with patient 09/27/2024 Essential hypertension (ICD-10 - I10) Blood pressure journal 09/27/2024 Morbid obesity (ICD-10 - E66.01) Medication treatment discussed. Will request PA for meds 11/08/2024 Essential hypertension (ICD-10 - I10) 11/08/2024 Morbid obesity (ICD-10 - E66.01) 02/04/2025 Essential hypertension (ICD-10 - I10) 04/11/2025 Essential hypertension (ICD-10 - I10) Plan Of Treatment Next Appt Details Provider Name:Hai Barboza , 05/10/2025 10:00:00 AM, [address] [facility], [address], [place], [id number], Insurance Providers Payer Name Payer Address Payer Phone Subscriber Number Group Number Insured Name Patient Relationship to Insured Coverage Start Date Coverage End Date [employer] [address] [place] [address] [id number] EDISON PALOMO Self - patient is the insured Medications Administered Medication Instructions Date of Administration Dosage Notes Bicillin [place] 1,200,000 07/02/2006 2 mL Medical (General) History Medical History History ICD Code Hypertension Surgical History Surgery Date(Month/Year) Bilateral Ear Tubes Tonsilectomy 04/30/2010 Gastric Sleeve at [facility] 0 11/2019
[2025-05-07 12:15] LABS: Total Volume,Urine 1520 mL (600-1600)
[2025-05-07 16:53] LABS: Total Protein 24 Hour,Urine 91 mg/24 hr (40-90)
== END 2025-05-07 23:59 | disposition home or self-care (01) ==
LOC: LAB 11:02
PROVIDERS: PCP Family Medicine; Visit Provider Obstetrics & Gynecology
DX: O13.9 Gestational [pregnancy-induced] hypertension without significant proteinuria, unspecified trimester (principal); O09.299 Supervision of pregnancy with other poor reproductive or obstetric history, unspecified trimester; O34.219 Maternal care for unspecified type scar from previous cesarean delivery; O99.519 Diseases of the respiratory system complicating pregnancy, unspecified trimester; J01.40 Acute pansinusitis, unspecified; R05.9 Cough, unspecified; Z32.01 Encounter for pregnancy test, result positive; Z86.59 Personal history of other mental and behavioral disorders; Z3A.00 Weeks of gestation of pregnancy not specified
CPT/HCPCS: 84155

== ENCOUNTER 2025-05-13 14:13 | Outpatient (CLI) | payer BC, SELFPAY ==
[2025-05-13 15:02] LABS: Hematocrit 37.0 % (37.0-47.0); Hemoglobin 13.2 g/dL (12.2-16.2); Immature Granulocytes % 0.7 %; Mean Corpuscular HGB Conc 35.7 g/dL (31.8-35.4); Mean Corpuscular Hemoglobin 29.8 pg (27.0-31.2); Mean Corpuscular Volume 83.5 fl (81-99); Nucleated Red Blood Cells % 0 %; Platelet Count 312 K/mm3 (142-424); Red Blood Count 4.43 M/mm3 (4.20-5.40); Red Cell Distribution Width-SD 37.9 fL; White Blood Count 11.8 K/mm3 (4.8-10.8)
[2025-05-13 16:35] LABS: Hepatitis C Ab Qual. W/ RFX NEGATIVE (Negative)
[2025-05-14 08:29] LABS: Hepatitis B Surface Antigen Negative (Negative)
[2025-05-14 09:18] LABS: RPR W/RFX Titers Nonreactive (Nonreactive)
[2025-05-14 10:12] LABS: Rubella Antibodies, IgG 1.36 index (Immune >0.99)
== END 2025-05-13 23:59 | disposition home or self-care (01) ==
LOC: LAB 14:14
PROVIDERS: PCP Family Medicine; Visit Provider Obstetrics & Gynecology
DX: O16.4 Unspecified maternal hypertension, complicating childbirth (principal); Z3A.00 Weeks of gestation of pregnancy not specified
CPT/HCPCS: 36415; 85025; 86592; 86762; 86787; 86803; 86850; 87340; 87389